=== PATIENT | female | born 1965 | race Caucasian/White ===

== ENCOUNTER → 2016-10-09 | Outpatient (CLI) | payer MEDICARE | END | disposition home or self-care (01) | LOC: RADMAMWWP 07:41 | PROVIDERS: ATTEND Family Medicine | DX: Z53.8 Procedure and treatment not carried out for other reasons (principal) ==

== ENCOUNTER → 2018-01-31 | Outpatient (CLI) | payer MEDICARE ==
--- NOTE | 2018-01-31 12:39 | XR ---
EXAMINATION TYPE: XR chest 2V DATE OF EXAM: 01/31/2018 COMPARISON: 05/11/2014 TECHNIQUE: PA and lateral views submitted. HISTORY: Cough and shortness of breath FINDINGS: The lungs are clear and there is no pneumothorax, pleural effusion, or focal pneumonia. Hypertrophi c and degenerative changes of the vertebral column. IMPRESSION: 1. No acute process.
== END | disposition home or self-care (01) ==
LOC: RADXRMAIN 12:23
PROVIDERS: ATTEND Family Medicine
DX: R00.2 Palpitations (principal); R06.02 Shortness of breath; E11.65 Type 2 diabetes mellitus with hyperglycemia
CPT/HCPCS: 71046

== ENCOUNTER → 2018-07-24 | Outpatient (CLI) | payer MEDICARE, OTHER ==
--- NOTE | 2018-07-24 09:57 | MM ---
Reason for exam: additional evaluation requested from prior study. Last mammogram was performed 3 years and 11 months ago. History: Family history of breast cancer in paternal aunt at age 50 and breast cancer in paternal aunt. Benign US biopsy breast VAD RT of the right breast, August 14, 2014. Physical Findings: Nurse did not find any significant physical abnormalities on exam. MG 3D Diag Mammo W/Cad [facility] Bilateral CC and MLO view(s) were taken. Prior study comparison: August 14, 2014, right breast MG diagnostic mammo RT wo CAD. August 07, 2014, bilateral MG diagnostic mammo w CAD [facility]. There are scattered fibroglandular densities. Previous mammotome biopsy in the right breast. There is chronic nodularity bilaterally. No significant new findings when compared with previous films. These results were verbally communicated with the patient and result sheet given to the patient on 07/24/18. ASSESSMENT: Benign, BI-RAD 2 RECOMMENDATION: Routine screening mammogram of both breasts in 1 year.
== END ==
LOC: RADMAMWWP 08:55
PROVIDERS: ATTEND Family Medicine
DX: Z09 Encounter for follow-up examination after completed treatment for conditions other than malignant neoplasm (principal); Z87.898 Personal history of other specified conditions
CPT/HCPCS: 77066; G0279; 77062

== ENCOUNTER 2018-09-15 10:49 | Emergency (ER) | payer MEDICARE, OTHER ==
--- NOTE | 2018-09-15 11:27 | ED ---
General Adult HPI - General Chief complaint: Shortness of Breath Stated complaint: Poss allergic reaction Time Seen by Provider: 09/15/18 11:05 Source: patient Mode of arrival: wheelchair Limitations: no limitations - History of Present Illness Initial comments: Dictation was produced using [employer] dictation software. please excuse any grammatical, word or spelling errors. Chief Complaint: 53-year-old female with multiple comorbidities presents with chest pressure. History of Present Illness: She is a 53-year-old female she was at [employer] when she began experiencing itching. Patient states she has multiple ALLERGIES. She is here today because she felt an episode of chest pressure. She told her family friend to bring her to the emergency department. Patient states that her pain was severe. She localizes it to the substernal area without any radiation to the shoulders or jaw. No associated diaphoresis or nausea. Patient has any cardiac history. She was told to follow-up with parks and recreation worker by her PCP however has not done so. Patient denies any cough, chills or night sweats P she felt at baseline this morning. Patient states her symptoms last for several minutes and was intense however subsided. Denies any mitigating or exacerbating factors. She believes that her symptoms are secondary to ALLERGIES. Eyes any rash, dyspnea, abdominal pain or sensation of throat closure. The ROS documented in this emergency department record has been reviewed and confirmed by me. Those systems with pertinent positive or negative responses have been documented in the HPI. All other systems are other negative and/or noncontributory. PHYSICAL EXAM: General Impression: Alert and oriented x3, not in acute distress HEENT: Normocephalic atraumatic, extra-ocular movements intact, pupils equal and reactive to light bilaterally, mucous membranes moist. Cardiovascular: Heart regular rate and rhythm, S1&S2 audible, no murmurs, rubs or gallops Chest: Lungs clear to auscultation bilaterally, no rhonchi, no wheeze, no rales Abdomen: Bowel sounds present, abdomen soft, non-tender, non-distended, no organomegaly Musculoskeletal: Pulses present and equal in all extremities, no peripheral edema Motor: no focal deficits noted Neurological: CN II-XII grossly intact, no focal motor or sensory deficits noted Skin: Intact with no visualized rashes Psych: Normal affect and mood ED course: 53-year-old female presents clinical presentation consistent with atypical chest pain with typical features. Patient has multiple risk factors. Patient is asymptomatic at this time. Vital signs upon arrival are within a cceptable limits. Laboratory evaluation obtained. CBC, coag panel, metabolic panels obtained. O2 sat troponins negative. Rest of labs unremarkable. Chest x-ray is nonacute. Patient's symptoms are grossly atypical. Nonetheless patient is a low risk heart score. Patient told to follow-up with PCP. Return parameters discussed. Patient understandable agreeable to disposition. EKG interpretation: Ventricular rate 80, normal sinus rhythm, NV interval 1:30, care is 80, QTc 435. No NV prolongation, no QTC prolongation, no ST or T-wave changes noted. s. Overall, this EKG is unremarkable - Related Data Home Medications Medication Instructions Recorded Confirmed Fish Oil/Dha/Epa [Fish Oil 1,200 1 cap PO BID 11/25/15 11/25/15 mg Fish Oil] Glucosam/John-Msm1/C/Eric/Bosw 1 tab PO DAILY 11/25/15 11/25/15 [Glucosamine-Chondroitin Tablet] Hair/Skin/Nails 1 tab PO DAILY 11/25/15 11/25/15 Previous Rx's Medication Instructions Recorded Lisinopril [Zestril] 2.5 mg PO DAILY 30 Days tab 05/19/14 Ondansetron [Zofran ODT] 4 mg PO Q8HR PRN #12 tab 11/25/15 Allergies Allergy/AdvReac Type Severity Reaction Status Date / Time banana Allergy Unknown Verified 09/15/18 10:59 latex Allergy Rash/Hives Verified 09/15/18 10:59 saccharin Allergy lip/tongue Verified 09/15/18 10:59 swelling adhesive AdvReac "BANDAIDS Verified 09/15/18 10:59 TAKE OFF SKIN" aspartame AdvReac Vomiting Verified 09/15/18 10:59 carbamazepine [From Tegretol] AdvReac feels as Verified 09/15/18 10:59 if her body was beat cephalexin [From Keflex] AdvReac yeast Verified 09/15/18 11:00 infection sitagliptin [From Januvia] AdvReac pulsating Verified 09/15/18 11:00 facial pain pitaschio Allergy lip/tongue Uncoded 09/15/18 10:59 swelling raw celery Allergy Swelling Uncoded 09/15/18 10:59 Review of Systems ROS Statement: Those systems with pertinent positive or pertinent negative responses have been documented in the HPI. ROS Other: All systems not noted in ROS Statement are negative. Past Medical History Past Medical History: Diabetes Mellitus, Hyperlipidemia, Hypertension, Seizure Disorder, Sleep Apnea/CPAP/BIPAP, Syncope Additional Past Medical History / Comment(s): anemia, hx blood clot in right ovary, spinal stenosis, Sleep Apnea-stopped using her cpap machine, neurological dermatitis, Last seizure date: 2005, Left shoulder injury. History of Any Multi-Drug Resistant Organisms: None Reported Past Surgical History: Back Surgery, Hysterectomy, Tubal Ligation Additional Past Surgical History / Comment(s): discectomy, lt foot removal of foriegn body, Back Surgery- November 2012 Past Anesthesia/Blood Transfusion Reactions: Motion Sickness Past Psychological History: Anxiety, Depression, Schizoaffective Disorder Smoking Status: Never smoker Past Alcohol Use History: Occasional Past Drug Use History: None Reported - Past Family History Father Family Medical History: Diabetes Mellitus, Hypertension, Thyroid Disorder Additional Family Medical History / Comment(s): neuropathy, chronic fatigue syndrome Mother Family Medical History: Diabetes Mellitus Additional Family Medical History / Comment(s): Patient has 3 brothers and 3 sisters that have no major medical problems. General Exam Limitations: no limitations Course Vital Signs 09/15/18 09/15/18 09/15/18 10:56 13:10 14:29 Temperature 98.3 F Pulse Rate 83 80 90 Respiratory 18 16 18 Rate Blood Pressure 158/113 120/86 146/91 O2 Sat by Pulse 98 96 96 Oximetry Medical Decision Making - Lab Data Result diagrams: 09/15/18 11:27 09/15/18 11:27 Lab Results 09/15/18 09/15/18 09/15/18 Range/Units 11:27 11:27 11:27 WBC 6.4 (3.8-10.6) k/uL RBC 4.65 (3.80-5.40) m/uL Hgb 13.2 (11.4-16.0) gm/dL Hct 41.0 (34.0-46.0) % MCV 88.1 (80.0-100.0) fL MCH 28.5 (25.0-35.0) pg MCHC 32.3 (31.0-37.0) g/dL RDW 13.5 (11.5-15.5) % Plt Count 344 (150-450) k/uL Neutrophils % 40 % Lymphocytes % 47 % Monocytes % 6 % Eosinophils % 2 % Basophils % 1 % Neutrophils # 2.6 (1.3-7.7) k/uL Lymphocytes # 3.1 (1.0-4.8) k/uL Monocytes # 0.4 (0-1.0) k/uL Eosinophils # 0.1 (0-0.7) k/uL Basophils # 0.1 (0-0.2) k/uL PT 9.5 (9.0-12.0) sec INR 0.9 (<1.2) APTT 24.1 (22.0-30.0) sec Sodium 138 (137-145) mmol/L Potassium 4.3 (3.5-5.1) mmol/L Chloride 103 (98-107) mmol/L Carbon Dioxide 24 (22-30) mmol/L Anion Gap 11 mmol/L BUN 14 (7-17) mg/dL Creatinine 0.72 (0.52-1.04) mg/dL Est GFR (CKD-EPI)AfAm >90 (>60 ml/min/1.73 sqM) Est GFR (CKD-EPI)NonAf >90 (>60 ml/min/1.73 sqM) Glucose 193 H (74-99) mg/dL Calcium 9.4 (8.4-10.2) mg/dL Magnesium 1.7 (1.6-2.3) mg/dL Total Bilirubin 0.5 (0.2-1.3) mg/dL AST 31 (14-36) U/L ALT 32 (9-52) U/L Alkaline Phosphatase 117 (38-126) U/L Troponin I (0.000-0.034) ng/mL Total Protein 7.1 (6.3-8.2) g/dL Albumin 4.2 (3.5-5.0) g/dL 09/15/18 09/15/18 Range/Units 11:27 14:31 WBC (3.8-10.6) k/uL RBC (3.80-5.40) m/uL Hgb (11.4-16.0) gm/dL Hct (34.0-46.0) % MCV (80.0-100.0) fL MCH (25.0-35.0) pg MCHC (31.0-37.0) g/dL RDW (11.5-15.5) % Plt Count (150-450) k/uL Neutrophils % % Lymphocytes % % Monocytes % % Eosinophils % % Basophils % % Neutrophils # (1.3-7.7) k/uL Lymphocytes # (1.0-4.8) k/uL Monocytes # (0-1.0) k/uL Eosinophils # (0-0.7) k/uL Basophils # (0-0.2) k/uL PT (9.0-12.0) sec INR (<1.2) APTT (22.0-30.0) sec Sodium (137-145) mmol/L Potassium (3.5-5.1) mmol/L Chloride (98-107) mmol/L Carbon Dioxide (22-30) mmol/L Anion Gap mmol/L BUN (7-17) mg/dL Creatinine (0.52-1.04) mg/dL Est GFR (CKD-EPI)AfAm (>60 ml/min/1.73 sqM) Est GFR (CKD-EPI)NonAf (>60 ml/min/1.73 sqM) Glucose (74-99) mg/dL Calcium (8.4-10.2) mg/dL Magnesium (1.6-2.3) mg/dL Total Bilirubin (0.2-1.3) mg/dL AST (14-36) U/L ALT (9-52) U/L Alkaline Phosphatase (38-126) U/L Troponin I <0.012 <0.012 (0.000-0.034) ng/mL Total Protein (6.3-8.2) g/dL Albumin (3.5-5.0) g/dL Disposition Clinical Impression: Chest pain Disposition: HOME SELF-CARE Condition: Good Instructions (If sedation given, give patient instructions): Chest Pain (ED) Is patient prescribed a controlled substance at d/c from ED?: No Referrals: Petty Christy MD [Primary Care Provider] - 1-2 days Time of Disposition: 15:23
--- NOTE | 2018-09-15 11:42 | XR ---
EXAMINATION TYPE: XR chest 2V DATE OF EXAM: 09/15/2018 HISTORY: Strange feeling in the lungs. REFERENCE: Previous study dated 01/31/2018. FINDINGS: Lungs are clear. Pleural space are clear. The heart is not enlarged. IMPRESSION: NORMAL CHEST.
[2018-09-15 11:55] LABS: Basophils # (A) 0.1 k/uL (0-0.2); Basophils % (A) 1 %; Eosinophils # (A) 0.1 k/uL (0-0.7); Eosinophils % (A) 2 %; HGB 13.2 gm/dL (11.4-16.0); Lymphocytes # (A) 3.1 k/uL (1.0-4.8); Lymphocytes % (A) 47 %; MCH 28.5 pg (25.0-35.0); MCHC 32.3 g/dL (31.0-37.0); MCV 88.1 fL (80.0-100.0); Mean Platelet Volume 7.5; Monocytes # (A) 0.4 k/uL (0-1.0); Monocytes % (A) 6 %; Neutrophils # (A) 2.6 k/uL (1.3-7.7); Neutrophils % (A) 40 %; Platelet Count 344 k/uL (150-450); RBC 4.65 m/uL (3.80-5.40); RDW 13.5 % (11.5-15.5); WBC 6.4 k/uL (3.8-10.6)
[2018-09-15 12:04] LABS: ALT 32 U/L (9-52); AST 31 U/L (14-36); Albumin 4.2 g/dL (3.5-5.0); Alkaline Phosphatase 117 U/L (38-126); Anion Gap 11 mmol/L; Blood Urea Nitrogen 14 mg/dL (7-17); Calcium 9.4 mg/dL (8.4-10.2); Carbon Dioxide 24 mmol/L (22-30); Chloride 103 mmol/L (98-107); Glucose 193 mg/dL (74-99); INR 0.9 (<1.2); Magnesium 1.7 mg/dL (1.6-2.3); Partial Thromboplastin Time 24.1 sec (22.0-30.0); Potassium 4.3 mmol/L (3.5-5.1); Prothrombin Time 9.5 sec (9.0-12.0); Sodium 138 mmol/L (137-145); Total Bilirubin 0.5 mg/dL (0.2-1.3); Total Protein 7.1 g/dL (6.3-8.2)
[2018-09-15] MEDS ORDERED: DEXAMETHASONE 4 MG TAB PO STA (12:48)
[2018-09-15] MEDS ORDERED: ASPIRIN 81 MG PO STA (12:48)
[2018-09-15 14:31] VITALS: RESP 18
[2018-09-15 15:37] VITALS: BP 142/97; PULSE 82; TEMP 98.2
== END 2018-09-15 15:37 | disposition home or self-care (01) ==
LOC: EC 10:49
DX: R07.89 Other chest pain (principal); R06.02 Shortness of breath; G47.30 Sleep apnea, unspecified; Z88.1 Allergy status to other antibiotic agents; Z88.8 Allergy status to other drugs, medicaments and biological substances; Z91.040 Latex allergy status; Z91.048 Other nonmedicinal substance allergy status; Z91.018 Allergy to other foods
CPT/HCPCS: 36415; 93005; 80053; 83735; 84484; 85025; 85610; 85730; 71046; 99285; J8540

== ENCOUNTER → 2018-11-29 | Outpatient (CLI) | payer MEDICARE, OTHER ==
[2018-11-29 19:27] LABS: African American GFR (CKD) 98.9 (60.0-200.0)
== END ==
LOC: LABWHC1 09:27
PROVIDERS: ATTEND Otolaryngology
DX: Z01.812 Encounter for preprocedural laboratory examination (principal); G50.1 Atypical facial pain
CPT/HCPCS: 36415; 82565; 84520

== ENCOUNTER 2019-10-03 18:23 | Emergency (ER) | payer OTHER, MEDICARE ==
[2019-10-03 18:32] VITALS: RESP 16
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
[2019-10-03] MEDS ORDERED: KETOROLAC 30 MG/ML 1 ML VIAL IM STA (20:32)
[2019-10-03] MEDS ORDERED: KETOROLAC 30 MG/ML 1 ML VIAL IVP STA (21:00)
[2019-10-03 21:18] VITALS: BP 143/99; PULSE 88; TEMP 97.6
== END 2019-10-03 21:18 | disposition home or self-care (01) ==
LOC: EC 18:23
DX: S09.90XA Unspecified injury of head, initial encounter (principal); R07.89 Other chest pain; N83.202 Unspecified ovarian cyst, left side; R10.812 Left upper quadrant abdominal tenderness; R10.811 Right upper quadrant abdominal tenderness; Z79.899 Other long term (current) drug therapy; Z91.018 Allergy to other foods; Z91.040 Latex allergy status; Z88.1 Allergy status to other antibiotic agents; Z88.8 Allergy status to other drugs, medicaments and biological substances; V43.52XA Car driver injured in collision with other type car in traffic accident, initial encounter; Y93.89 Activity, other specified; Y92.410 Unspecified street and highway as the place of occurrence of the external cause
CPT/HCPCS: 72125; 70450; 71260; 74177; 99284; 96374; J1885; Q9967

== ENCOUNTER → 2019-11-13 | Outpatient (CLI) | payer BC, OTHER ==
--- NOTE | 2019-11-14 10:18 | MM ---
Reason for exam: screening (asymptomatic). Last mammogram was performed 1 year and 4 months ago. History: Patient is postmenopausal and history of other cancer. Family history of breast cancer in paternal aunt at age 50 and breast cancer in paternal aunt. Benign US biopsy breast VAD RT of the right breast, August 14, 2014. Took hormonal contraceptives for 6 months. Physical Findings: A clinical breast exam by your physician is recommended on an annual basis and results should be correlated with mammographic findings. MG 3D Screening Mammo W/Cad Bilateral CC and MLO view(s) were taken. Prior study comparison: July 24, 2018, bilateral MG 3d diag mammo w/cad [facility]. August 14, 2014, right breast MG diagnostic mammo RT wo CAD. The breast tissue is heterogeneously dense. This may lower the sensitivity of mammography. Previous mammotome biopsy in the right breast. There is no discrete abnormality. No significant changes when compared with prior studies. ASSESSMENT: Benign, BI-RAD 2 RECOMMENDATION: Routine screening mammogram of both breasts in 1 year.
== END | disposition home or self-care (01) ==
LOC: RADMAMWWP 08:45
PROVIDERS: ATTEND Family Medicine
DX: Z12.31 Encounter for screening mammogram for malignant neoplasm of breast (principal)
CPT/HCPCS: 77063; 77067

== ENCOUNTER → 2019-12-05 | Outpatient (CLI) | payer MEDICARE, OTHER ==
[2019-12-05 15:19] LABS: African American GFR (CKD) 98.2 (60.0-200.0); Anion Gap 9.7 mmol/L (4.00-12.00); BUN/Creat Ratio 18.75 Ratio (12.00-20.00); Calcium 9.4 mg/dL (8.7-10.3); Carbon Dioxide 24.3 mmol/L (21.6-31.8); Chol/HDL Ratio 4.97; LDL Cholesterol,Calculated 197.4 mg/dL (0.0-131.0); Non-African American GFR(CKD) 84.8 (60.0-200.0); Potassium 4.2 mmol/L (3.5-5.5); VLDL Calculation 40.6 mg/dL (5.00-40.00)
[2019-12-05 17:39] LABS: Hemoglobin A1C 8.7 % (4.0-6.0)
[2019-12-05 21:55] LABS: Urine Creatinine 90.4 mg/dL
== END | disposition home or self-care (01) ==
LOC: LABWHC1 10:11
PROVIDERS: ATTEND Internal Medicine
DX: E11.65 Type 2 diabetes mellitus with hyperglycemia (principal)
CPT/HCPCS: 36415; 80048; 80061; 82043; 82570; 83036

== ENCOUNTER 2019-12-12 10:50 | Emergency (ER) | payer MEDICARE, OTHER ==
[2019-12-12 10:56] VITALS: TEMP 97.9
[2019-12-12 12:13] LABS: Basophils % (A) 1 %; Eosinophils # (A) 0.1 k/uL (0-0.7); Eosinophils % (A) 1 %; HCT 41.1 % (34.0-46.0); HGB 12.8 gm/dL (11.4-16.0); Lymphocytes % (A) 37 %; MCH 27.6 pg (25.0-35.0); MCV 88.8 fL (80.0-100.0); Monocytes # (A) 0.3 k/uL (0-1.0); Monocytes % (A) 6 %; Neutrophils # (A) 2.8 k/uL (1.3-7.7); Neutrophils % (A) 52 %; Platelet Count 279 k/uL (150-450); RBC 4.63 m/uL (3.80-5.40); RDW 13.4 % (11.5-15.5); WBC 5.4 k/uL (3.8-10.6)
[2019-12-12 12:14] LABS: Appearance,Urine Clear (Clear); Bilirubin,Urine Negative (Negative); Blood,Urine Negative (Negative); Color,Urine Light Yellow; Glucose,Urine (UA) Negative (Negative); Ketones,Urine Negative (Negative); Leukocyte Esterase,Urine Negative (Negative); Nitrite,Urine Negative (Negative); Protein,Urine Negative (Negative); Specific Gravity,Urine 1.007 (1.001-1.035); Urobilinogen,Urine <2.0 mg/dL (<2.0)
[2019-12-12 12:32] LABS: Amphetamine Screen,Urine Not Detected (NotDetected); Barbiturate Screen,Urine Not Detected (NotDetected); Benzodiazepines Screen,Urine Not Detected (NotDetected); Cocaine Screen,Urine Not Detected (NotDetected); Methadone Screen, Urine Not Detected (NotDetected); Opiate Screen,Urine Not Detected (NotDetected); Oxycodone Screen, Urine Not Detected (NotDetected); Phencyclidine Screen,Urine Not Detected (NotDetected); Tricyclic Antidepressant,Urine Not Detected (NotDetected); Urn Cannabinoid Scrn Not Detected (NotDetected)
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
[2019-12-12 13:40] LABS: ALT 17 U/L (4-34); AST 26 U/L (14-36); African American GFR (CKD) >90 (>60 ml/min/1.73 sqM); Albumin 4.3 g/dL (3.5-5.0); Alkaline Phosphatase 96 U/L (38-126); Anion Gap 10 mmol/L; Blood Urea Nitrogen 12 mg/dL (7-17); Calcium 9.4 mg/dL (8.4-10.2); Carbon Dioxide 20 mmol/L (22-30); Chloride 106 mmol/L (98-107); Glucose 177 mg/dL (74-99); Non-African American GFR(CKD) >90 (>60 ml/min/1.73 sqM); Potassium 4.5 mmol/L (3.5-5.1); Sodium 136 mmol/L (137-145); Total Bilirubin 0.6 mg/dL (0.2-1.3); Total Protein 7.1 g/dL (6.3-8.2)
[2019-12-12 13:53] VITALS: BP 154/90; PULSE 82; RESP 16
== END 2019-12-12 14:10 | disposition home or self-care (01) ==
LOC: EC 10:50
DX: R55 Syncope and collapse (principal); R42 Dizziness and giddiness; Z91.018 Allergy to other foods; Z88.8 Allergy status to other drugs, medicaments and biological substances; Z91.048 Other nonmedicinal substance allergy status; Z91.040 Latex allergy status; Z87.828 Personal history of other (healed) physical injury and trauma
CPT/HCPCS: 36415; 80053; 80306; 81003; 84443; 85025; 93005; 99284

== ENCOUNTER 2020-12-15 17:33 | Observation (INO) | payer MEDICARE, OTHER ==
[2020-12-15] MEDS ORDERED: HYDROmorphone 0.5 MG/0.5 ML SYRINGE IM STA (18:14)
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
--- NOTE | 2020-12-15 19:06 | CT ---
EXAMINATION TYPE: CT thoracic spine wo con DATE OF EXAM: 12/15/2020 COMPARISON: Chest CT scan 10/03/2019 HISTORY: Mid back pain, radiating to left arm. CT DLP: 841 mGycm Automated exposure control for dose reduction was used. Images obtained from T1 to T12 without contrast. The thoracic vertebra have fairly normal spacing and alignment. Posterior elements are intact. There is no compression fracture. There is no thoracic paraspinal mass. I see no bony destructive process. There is no sign of thoracic spinal stenosis. There is minimal spurring in the lower thoracic spine a t the anterior endplates. IMPRESSION: Mild spur formation. Otherwise negative CT scan of the thoracic spine. No adverse change compared to old exam. No fracture.
[2020-12-15] MEDS ORDERED: IBUPROFEN 400 MG TAB PO PRN (19:29)
[2020-12-15] MEDS ORDERED: ACETAMINOPHEN TAB 325 MG TAB PO PRN (19:29)
[2020-12-15] MEDS ORDERED: ONDANSETRON 4 MG/2 ML VIAL IVP PRN (19:29)
[2020-12-15] MEDS ORDERED: NALOXONE 0.4 MG/ML 1 ML VIAL IV PRN (19:29)
[2020-12-15] MEDS ORDERED: MORPHINE SULFATE 4 MG/ML SYRINGE IV PRN (19:29)
[2020-12-15] MEDS ORDERED: HYDROcodone/APAP 5-325MG 1 EACH TAB PO PRN (19:29)
[2020-12-15] MEDS ORDERED: HYDROmorphone 0.5 MG/0.5 ML SYRINGE IVP PRN (19:29)
[2020-12-15] MEDS: KETOROLAC 15 MG/ML 1 ML VIAL IVP PRN (20:57)
[2020-12-15 21:48] LABS: Glucose,Whole Blood 136 mg/dL (75-99)
[2020-12-16] MEDS: KETOROLAC 15 MG/ML 1 ML VIAL IVP PRN (09:11)
[2020-12-16] MEDS ORDERED: CYCLOBENZAPRINE 10 MG TAB PO PRN (10:14)
[2020-12-16] MEDS ORDERED: methylPREDNISolone SOD SUCCI 40 MG/ML 1 ML VIAL IV STA (10:15)
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
[2020-12-16] MEDS ORDERED: DOCUSATE 100 MG CAP PO PRN (11:13)
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
[2020-12-16] MEDS ORDERED: INSULIN DETEMIR (LEVEMIR) 100 UNIT/ML SYR SQ SCH (16:00)
[2020-12-16] MEDS: lisinopriL 5 MG TAB PO SCH (16:22)
[2020-12-16] MEDS: KETOROLAC 15 MG/ML 1 ML VIAL IVP SCH (16:22)
[2020-12-16 16:44] LABS: Basophils % (A) 1 %; Eosinophils # (A) 0.1 k/uL (0-0.7); Eosinophils % (A) 1 %; HCT 40.4 % (34.0-46.0); HGB 13.2 gm/dL (11.4-16.0); Lymphocytes # (A) 2.3 k/uL (1.0-4.8); Lymphocytes % (A) 38 %; MCH 29.5 pg (25.0-35.0); MCHC 32.6 g/dL (31.0-37.0); MCV 90.4 fL (80.0-100.0); Monocytes # (A) 0.4 k/uL (0-1.0); Monocytes % (A) 6 %; Neutrophils # (A) 3.3 k/uL (1.3-7.7); Neutrophils % (A) 52 %; Platelet Count 272 k/uL (150-450); RBC 4.46 m/uL (3.80-5.40); RDW 14.7 % (11.5-15.5); WBC 6.2 k/uL (3.8-10.6)
[2020-12-16 16:54] LABS: African American GFR (CKD) >90 (>60 ml/min/1.73 sqM); Anion Gap 7 mmol/L; Blood Urea Nitrogen 14 mg/dL (7-17); Carbon Dioxide 26 mmol/L (22-30); Chloride 102 mmol/L (98-107); Glucose 188 mg/dL (74-99); Non-African American GFR(CKD) 81 (>60 ml/min/1.73 sqM); Potassium 4.3 mmol/L (3.5-5.1); Sodium 135 mmol/L (137-145)
[2020-12-16 18:01] LABS: Glucose,Whole Blood 183 mg/dL (75-99)
[2020-12-16] MEDS: INSULIN ASPART (NovoLOG) 100 UNIT/ML VIAL SQ SCH ×2 (18:12→22:06)
[2020-12-16] MEDS ORDERED: risperiDONE 0.5 MG TAB PO SCH (21:00)
[2020-12-16 21:58] LABS: Glucose,Whole Blood 259 mg/dL (75-99)
[2020-12-16] MEDS: HEPARIN SODIUM,PORCINE/PF 5,000 UNIT/0.5 ML SYRINGE SQ SCH (21:59)
[2020-12-17] MEDS: KETOROLAC 15 MG/ML 1 ML VIAL IVP SCH ×3 (00:21→11:58)
[2020-12-17 03:44] VITALS: RESP 16
[2020-12-17] MEDS: HEPARIN SODIUM,PORCINE/PF 5,000 UNIT/0.5 ML SYRINGE SQ SCH (07:56)
[2020-12-17] MEDS: lisinopriL 5 MG TAB PO SCH (07:56)
[2020-12-17 08:03] LABS: Glucose,Whole Blood 182 mg/dL (75-99)
[2020-12-17 08:30] VITALS: BP 122/80; PULSE 75; TEMP 97.4
[2020-12-17] MEDS: INSULIN ASPART (NovoLOG) 100 UNIT/ML VIAL SQ SCH ×2 (08:53→13:03)
[2020-12-17] MEDS ORDERED: PATIENT'S OWN (Omega-3 Acid Ethyl Esters [Lovaza] 1 GM Capsule) PO SCH (09:00)
[2020-12-17] MEDS ORDERED: methylPREDNISolone 4 MG TAB TAPER PO SCH (09:00)
[2020-12-17 10:26] LABS: African American GFR (CKD) 84.6 (60.0-200.0); Anion Gap 8.9 mmol/L (4.00-12.00); Calcium 9.3 mg/dL (8.7-10.3); Carbon Dioxide 24.1 mmol/L (21.6-31.8); Chol/HDL Ratio 3.82; LDL Cholesterol,Calculated 167.6 mg/dL (0.0-131.0); Potassium 4.5 mmol/L (3.5-5.5); VLDL Calculation 32.4 mg/dL (5.00-40.00)
[2020-12-17 10:31] LABS: Basophils # (A) 0.01 X 10*3/uL (0.00-0.10); Basophils % (A) 0.1 %; Eosinophils # (A) 0 X 10*3/uL (0.04-0.35); Eosinophils % (A) 0 %; HCT 39.9 % (37.2-46.3); HGB 12.9 g/dL (12.0-15.0); Lymphocytes # (A) 1.64 X 10*3/uL (0.90-5.00); Lymphocytes % (A) 18.3 %; MCH 28.4 pg (27.0-32.0); MCHC 32.3 g/dL (32.0-37.0); MCV 87.9 fL (80.0-97.0); Monocytes # (A) 0.35 X 10*3/uL (0.20-1.00); Monocytes % (A) 3.9 %; Neutrophils # (A) 6.92 X 10*3/uL (1.80-7.70); Neutrophils % (A) 77.4 %; Platelet Count 332 X 10*3/uL (140-440); RBC 4.54 X 10*6/uL (4.10-5.20); WBC 8.95 X 10*3/uL (4.50-10.00)
[2020-12-17 11:36] LABS: Glucose,Whole Blood 222 mg/dL (75-99)
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
== END 2020-12-17 12:51 | disposition home or self-care (01) ==
LOC: EC 17:33 → 6NMEDSUR 19:55
PROVIDERS: ADMIT Internal Medicine; ATTEND Internal Medicine
DX: M54.6 Pain in thoracic spine (principal); M47.812 Spondylosis without myelopathy or radiculopathy, cervical region; E11.9 Type 2 diabetes mellitus without complications; E66.9 Obesity, unspecified; E78.5 Hyperlipidemia, unspecified; F25.9 Schizoaffective disorder, unspecified; G40.909 Epilepsy, unspecified, not intractable, without status epilepticus; G89.29 Other chronic pain; I10 Essential (primary) hypertension; S29.012A Strain of muscle and tendon of back wall of thorax, initial encounter; Z68.33 Body mass index [BMI] 33.0-33.9, adult; Z79.899 Other long term (current) drug therapy; Z82.49 Family history of ischemic heart disease and other diseases of the circulatory system; Z83.3 Family history of diabetes mellitus; Z90.710 Acquired absence of both cervix and uterus
CPT/HCPCS: 96376 ×2; 96372 ×3; 96375; 96374; 99284; 80061; 80048 ×2; 85025 ×2; 72128; G0378 ×3; J2920; J1885 ×3; J1170 ×2; J1644 ×2

== ENCOUNTER → 2021-02-24 | Outpatient (CLI) | payer MEDICARE, OTHER ==
--- NOTE | 2021-02-24 11:55 | XR ---
Orbits HISTORY: MRI clearance, history of grinding rocks without hypertension 3 views of the orbits On the mineralization is maintained. The orbits are intact. No radiopaque foreign body is evident. Pa ranasal sinuses are well aerated. IMPRESSION: No radiopaque foreign body is evident
== END | disposition home or self-care (01) ==
LOC: RADXRMAIN 11:30
PROVIDERS: ATTEND Orthopaedic Surgery Orthopaedic Surgery of the Spine
DX: Z01.89 Encounter for other specified special examinations (principal)
CPT/HCPCS: 70030

== ENCOUNTER → 2021-04-11 | Outpatient (CLI) | payer MEDICARE, OTHER ==
[2021-04-11 08:26] VITALS: BP 129/86; PULSE 91; RESP 18; TEMP 98
--- NOTE | 2021-04-11 14:04 | P.PAINCN ---
History of Present Illness - Reason for Consult Consult date: 04/11/21 Neck pain - Chief Complaint Neck pain - History of Present Illness Mrs. Gordon is a 56 -year-old pleasant female came to the [facility] pain clinic for initial evaluation for her neck pain . Patient has ongoing pain for many years, lately her neck pain is getting worse. Sometimes her pain radiating to her bilateral shoulder area. Patient describes pain is aching, throbbing, constant type of pain. Pain is radiating to bilateral shoulder area. Patient had shoulder joint injection with minimal pain relief. She recently moved from [place] to [place] in more than a year ago. Patient rated pain levels are 6 out of 10 in severity. With the help of medications pain levels are 5out of 10 in severity. Activities making pain worse. Medications, resting, exercise helping in relieving patient's pain. Patient is still actively working. Patient pain some days better than others. Overall activities decreased secondary to pain. Because of the pain sometimes patient is feeling lack of sleep, interest, and energy. Denied any side effects with the medications. Denied any bowel or bladder problems at this time. Not using any walking aids at this time. Patient denies any suicidal or homicidal ideations intent or plan. Patient denies any auditory or visual hallucinations. Patient denied any red flag symptoms related to pain. Review of Systems All systems: negative Constitutional: Denies chills, Denies fever Eyes: denies blurred vision, denies pain Ears, nose, mouth and throat: Denies headache, Denies sore throat Cardiovascular: Denies chest pain, Denies shortness of breath Respiratory: Denies cough Gastrointestinal: Denies abdominal pain, Denies diarrhea, Denies nausea, Denies vomiting Genitourinary: Denies dysuria, Denies hematuria Musculoskeletal: Reports myalgias, Reports neck pain, Reports neck stiffness Integumentary: Denies pruritus, Denies rash Neurological: Denies numbness, Denies weakness Psychiatric: Denies anxiety, Denies depression Endocrine: Denies fatigue, Denies weight change Past Medical History Past Medical History: Blood Disorder, Cancer, Diabetes Mellitus, Eye Disorder, GERD/Reflux, Hyperlipidemia, Hypertension, Musculoskeletal Disorder, Seizure Disorder, Skin Disorder, Sleep Apnea/CPAP/BIPAP, Syncope Additional Past Medical History / Comment(s): Hx severe anemia, sm leaky valve, hx blood clot Rt ovary, skin cancer spinal stenosis, narrow-angle glaucoma, fatty liver. Neck pain, NT bilat arms. No CPAP. neurological dermatitis, Last seizure 2005, varicose veins. History of Any Multi-Drug Resistant Organisms: None Reported Past Surgical History: Back Surgery, Hysterectomy, Tubal Ligation Additional Past Surgical History / Comment(s): Lumbar discectomy 2012, lt foot removal of foriegn body, Laser varicose veins, Skin cancer exc scalp Past Anesthesia/Blood Transfusion Reactions: Previous Problems w/ Anesthesia Additional Past Anesthesia/Blood Transfusion Reaction / Comm: Family has awakened in surgery - son, father Smoking Status: Never smoker - Past Family History Father Family Medical History: Cancer, CVA/TIA, Diabetes Mellitus, Hypertension, Thyroid Disorder Additional Family Medical History / Comment(s): Lymphoma, neuropathy, chronic fatigue syndrome Mother Family Medical History: Cancer, CVA/TIA, Diabetes Mellitus Additional Family Medical History / Comment(s): Cervical cancer. Sister(s) Family Medical History: Cancer Additional Family Medical History / Comment(s): breast cancer Medications and Allergies Home Medications Medication Instructions Recorded Confirmed Type Insulin Glargine,Hum.rec.anlog 26 unit SQ QAM 12/15/20 04/11/21 History [Lantus Solostar Pen] lisinopriL [Zestril] 5 mg PO BID 12/15/20 04/11/21 History Cyclobenzaprine [Flexeril] 10 mg PO TID PRN #60 tab 12/16/20 04/11/21 Rx Ascorbic Acid [Vitamin C] 500 mg PO DAILY 04/04/21 04/11/21 History Benztropine Mesylate [Cogentin] 1 mg PO BID 04/04/21 04/11/21 History Ezetimibe [Zetia] 10 mg PO DAILY 04/04/21 04/11/21 History Fluticasone Nasal [place] [Flonase 2 spray EA NOSTRIL DAILY 04/04/21 04/11/21 History Nasal [place]] Gabapentin [Neurontin] 100 mg PO BID 04/04/21 04/11/21 History Multivitamins, Thera Liquid 5 ml PO DAILY 04/04/21 04/11/21 History [Theragran Liquid (formulary)] [place]-3 Fatty Acids [[place]-3] 1,000 mg PO DAILY 04/04/21 04/11/21 History Paliperidone IM [Invega Sustenna] 156 mg IM QMONTHLY 04/04/21 04/11/21 History Semaglutide [Ozempic] 0.25 mg SQ MO 04/04/21 04/11/21 History Allergies Allergy/AdvReac Type Severity Reaction Status Date / Time banana Allergy Unknown Verified 04/04/21 16:25 celery Allergy Anaphylaxis Verified 04/04/21 16:25 latex Allergy Rash/Hives Verified 04/04/21 16:25 saccharin Allergy lip/tongue Verified 04/04/21 16:25 swelling tramadol Allergy feels Verified 04/04/21 16:25 bruised/stiff in face tree nut Allergy Anaphylaxis Verified 04/04/21 16:25 adhesive AdvReac "BANDAIDS Verified 04/04/21 16:25 TAKE OFF SKIN" aspartame AdvReac Vomiting Verified 04/04/21 16:25 carbamazepine [From Tegretol] AdvReac feels as Verified 04/04/21 16:25 if her body was beat cephalexin [From Keflex] AdvReac yeast Verified 04/04/21 16:25 infection chicken derived [Chicken] AdvReac positive Verified 04/04/21 16:25 allergy testing glipizide AdvReac depression Verified 04/04/21 16:25 liraglutide [From Victoza] AdvReac Abdominal Verified 04/04/21 16:25 Pain lurasidone [From Latuda] AdvReac Hallucinati Verified 04/04/21 16:25 ons metformin AdvReac depression Verified 04/04/21 16:25 paliperidone [From Invega] AdvReac Tired, Verified 04/04/21 16:26 cramping in jaw pioglitazone [From Actos] AdvReac gained 10# Verified 04/04/21 16:25 water weight repaglinide AdvReac Unknown Verified 04/04/21 16:25 sitagliptin [From Januvia] AdvReac pulsating Verified 04/04/21 16:25 facial pain Aeskavt-TBP-FcC Reductase AdvReac elev liver Verified 04/04/21 16:25 Inhibitor enzymes dust mites Allergy Unknown Uncoded 04/04/21 16:25 pitaschio Allergy Anaphylaxis Uncoded 04/04/21 16:25 raw celery Allergy Anaphylaxis Uncoded 04/04/21 16:25 Physical Exam Vitals: Vital Signs Temp Pulse Resp BP Pulse Ox 04/11/21 08:22 98.0 F 91 18 129/86 99 General: Well-developed, well-nourished, no acute distress HEENT: Normocephalic, and atraumatic Neck: Supple, no neck swelling Psychiatric: Appropriate mood, and affect [employer] DES[employer]ER: No focal neurological deficits Musculoskeletal: Upper extremity: Normal strength, and range of motion. Sensation grossly intact Lower extremity: Normal strength and range of motion Cervical spine: Paravertebral tenderness: Positive Cervical spine facet josé luis: Positive Cervical spine Spurling test: Negative Multiple trigger points positive over cervical, and upper thoracic area Results Comments: MRI of the cervical spine on 12/08/2020 showed Degenerative changes within the cervical spine are not significantly changed from the previous cervical spine MRI done in 2012. At C5-C6 there is a mild narrowing of the spinal canal with minimal cord impingement. Severe left, and moderate to severe right neural foraminal stenosis At C6-C7 level there is a moderate to severe right, and moderate left neural foraminal stenosis with minimal narrowing of the spinal canal Assessment and Plan Assessment: Cervical spondylosis without myelopathy Cervical spinal canal stenosis at C5-C6, and C6-C7 levels Myofascial pain syndrome, and chronic pain syndrome Plan: #1 Diagnoses, prognosis, and multiple treatment options including but not limited to physical therapy, interventional therapy, adjunct medication therapy, narcotic medication, and surgical options were discussed with the patient. And all questions were answered to the patient's satisfaction. #2 treatment plan agreement : Patient was thoroughly discussed regarding the treatment options, alternatives, and importance of exercises as tolerated. Patient clearly understood. #3 Patient was counseled on importance of regular exercise. Including teresita chi, aerobic exercises as tolerated. Which helps for chronic pain, and overall well- being. Patient also counseled regarding importance of weight control rolling chronic pain, and overall other health issues. By altering diet habits, minimizing sugar intake, and processed foods helps in minimizing Inflammation. Also discussed with the patient regarding intermittent fasting. #4 investigations: MAPS- reviewed , urine drug test- not done #5 diagnostic tests: None #6 consultation : Continue physical therapy # 7 interventional procedures: Bilateral cervical C4-C5, and C5-C6 medial branch injection #1 . Procedure, complications, alternatives discussed with the patient. Patient is very concerned about her blood sugars lately it is under control, she wants to avoid any interventional procedures at this time. #8 medications None from the pain clinic #9 morphine milligrams equivalents dose ( MME) per day: 0. # 10 TENS unit's, and percussion massage device #11 disposition: scheduled to follow up with pain clinic [id number] duration. Time with Patient: Less than 30 PQRS Measure Charge Sheet Measure #130: Documentation of Current Meds in Medical Chart: Patient's medications documented in chart Measure #226: Tobacco Use: Screen & Cessation Intervention: Pt not a tobacco user Measure #111: Pneumonia Vaccination: Pneumococcal vaccine NOT administered or previously given Measure #47: Advance Care Plan: Advance care planning discussed & documented, pt chose/unable to give Measure #412: Opioid Treatment Agreement: No documentation of signed opioid treatment agreement Measure #408: Opioid Therapy Follow-up Evaluation: Patient had NO f/u eval minimum every 3 months during opioid therapy Measure #317: Preventitive Care & Scrn High Bld Press & F/U: Pre-hypertensive or hypertensive BP documented, pt will f/u with PCP Measure #128: Body Mass Index (BMI) Screening & Follow-up: BMI documented ABOVE normal parameters - f/u documented Measure #131: Pain Assessment & Follow-up: Pain positive & plan documented Measure #431: Unhealthy Alcohol Use Preventative Care & Scrn: Patient not identified as an unhealthy alcohol user Mode of Arrival: Ambulatory - Pain Location Neck Non-Pharmacological Interventions: Binder, Heat, Home Exercise, Ice, Physical Therapy, Position/Reposition, Stretching Pharmacological Interventions: Medication, PRN Medication Medial Back Non-Pharmacological Interventions: Binder Pharmacological Interventions: Medication, PRN Medication PQRS Narrative: Smoking Status Never smoker Blood Pressure 129/86 Pain Intensity [Medial Back] 7 Pain Intensity [Neck] 5 Scale Used Numeric (1 - 10) Hx Alcohol Use (MH) No Home Medications: Ambulatory Orders Insulin Glargine,Hum.rec.anlog [Lantus Solostar Pen] 26 unit SQ QAM 12/15/20 lisinopriL [Zestril] 5 mg PO BID 12/15/20 Cyclobenzaprine [Flexeril] 10 mg PO TID PRN #60 tab 12/16/20 Ascorbic Acid [Vitamin C] 500 mg PO DAILY 04/04/21 Benztropine Mesylate [Cogentin] 1 mg PO BID 04/04/21 Ezetimibe [Zetia] 10 mg PO DAILY 04/04/21 Fluticasone Nasal [place] [Flonase Nasal [place]] 2 spray EA NOSTRIL DAILY 04/04/21 Gabapentin [Neurontin] 100 mg PO BID 04/04/21 Multivitamins, Thera Liquid [Theragran Liquid (formulary)] 5 ml PO DAILY 04/04/21 [place]-3 Fatty Acids [[place]-3] 1,000 mg PO DAILY 04/04/21 Paliperidone IM [Invega Sustenna] 156 mg IM QMONTHLY 04/04/21 Semaglutide [Ozempic] 0.25 mg SQ MO 04/04/21
== END ==
LOC: PNWHC3 08:13
DX: M47.812 Spondylosis without myelopathy or radiculopathy, cervical region (principal); M48.02 Spinal stenosis, cervical region; M79.18 Myalgia, other site; G89.4 Chronic pain syndrome; E11.9 Type 2 diabetes mellitus without complications; K21.9 Gastro-esophageal reflux disease without esophagitis; E78.5 Hyperlipidemia, unspecified; I10 Essential (primary) hypertension; G40.909 Epilepsy, unspecified, not intractable, without status epilepticus; Z79.4 Long term (current) use of insulin; Z79.899 Other long term (current) drug therapy; Z79.84 Long term (current) use of oral hypoglycemic drugs; Z91.018 Allergy to other foods; Z91.040 Latex allergy status; Z88.6 Allergy status to analgesic agent; Z91.048 Other nonmedicinal substance allergy status; Z88.1 Allergy status to other antibiotic agents; Z88.8 Allergy status to other drugs, medicaments and biological substances; Z91.09 Other allergy status, other than to drugs and biological substances
CPT/HCPCS: 99211

== ENCOUNTER → 2021-08-16 | Outpatient (CLI) | payer MEDICARE, OTHER ==
--- NOTE | 2021-08-17 05:32 | MR ---
EXAMINATION TYPE: MR brain wo/w con DATE OF EXAM: 08/16/2021 COMPARISON: 08/27/2012 HISTORY: Near syncope, hx of seizure CONTRAST: Standard multiplanar, multisequence MRI departmental protocol images were obtained without contrast a nd with 8 mL intravenous Gadavist gadolinium contrast. Diffusion images show no evidence of an acute infarct. Ventricles have normal size. There is no mass effect or midline shift. There is no evidence of intracranial hemorrhage. There are numerous foci of abnormal increased signal at the johnston-white matter junction of both cerebral hemispheres. These measu re up to almost 1 cm. Total number is more than 30. The brainstem is intact. Cerebellum is intact. Se lla turcica is intact. Corpus callosum is intact. The contrast images show no pathologic enhancement. There is normal enhancement of the venous sinuses. IMPRESSION: Numerous white matter high signal foci are somewhat peripheral and more likely related to microvascul ar ischemia. Demyelinating disease is not excluded. Mucous retention cysts noted in the left maxillar y sinus. There is a moderate amount of white matter disease compared to old exam.
== END | disposition home or self-care (01) ==
LOC: RADMRIMAIN 07:16
PROVIDERS: ATTEND Family Medicine
DX: R55 Syncope and collapse (principal); J34.1 Cyst and mucocele of nose and nasal sinus; R90.82 White matter disease, unspecified
CPT/HCPCS: 70553; A9585

== ENCOUNTER 2021-12-30 18:31 | Emergency (ER) | payer MEDICARE, OTHER ==
[2021-12-30 18:38] VITALS: BP 162/94; TEMP 98.5
--- NOTE | 2021-12-30 19:01 | ED ---
General Adult HPI - General Chief complaint: Neuro Symptoms/Deficit Stated complaint: High Sugar, Time Seen by Provider: 12/30/21 18:41 Source: patient Mode of arrival: ambulatory Limitations: no limitations - History of Present Illness Initial comments: This patient is 56-year-old woman who presents with complaint that she has not been feeling well going back approximately 24 hours now. The patient states that she had eaten pizza yesterday and then noticed that her blood sugar was running over 300. She states that she was feeling somewhat tremulous, fatigue, urinating frequently. She checked her blood sugar today it was still over 200. She did give additional long-acting insulin but states she is not feeling much better. In addition today she is having nausea but no vomiting. -: hour(s) Severity scale (1-10): 0 Consistency: constant Improves with: none Worsens with: none Associated Symptoms: malaise, nausea/vomiting Treatments Prior to Arrival: other (Long-acting insulin) - Related Data Home Medications Medication Instructions Recorded Confirmed Insulin Glargine,Hum.rec.anlog 20 unit SQ DAILY 12/15/20 12/30/21 [Lantus Solostar Pen] lisinopriL [Zestril] 5 mg PO BID 12/15/20 12/30/21 Ezetimibe [Zetia] 10 mg PO DAILY 04/04/21 12/30/21 Allergies Allergy/AdvReac Type Severity Reaction Status Date / Time banana Allergy Unknown Verified 12/30/21 21:22 celery Allergy Anaphylaxis Verified 12/30/21 21:22 latex Allergy Rash/Hives Verified 12/30/21 21:22 saccharin Allergy lip/tongue Verified 12/30/21 21:22 swelling tramadol Allergy feels Verified 12/30/21 21:22 bruised/stiff in face tree nut Allergy Anaphylaxis Verified 12/30/21 21:22 adhesive AdvReac "BANDAIDS Verified 12/30/21 21:22 TAKE OFF SKIN" aspartame AdvReac Vomiting Verified 12/30/21 21:22 carbamazepine [From Tegretol] AdvReac feels as Verified 12/30/21 21:22 if her body was beat cephalexin [From Keflex] AdvReac yeast Verified 12/30/21 21:22 infection chicken derived [Chicken] AdvReac positive Verified 12/30/21 21:22 allergy testing glipizide AdvReac depression Verified 12/30/21 21:22 liraglutide [From Victoza] AdvReac Abdominal Verified 12/30/21 21:22 Pain lurasidone [From Latuda] AdvReac Hallucinati Verified 12/30/21 21:22 ons metformin AdvReac depression Verified 12/30/21 21:22 paliperidone [From Invega] AdvReac Tired, Verified 12/30/21 21:22 cramping in jaw pioglitazone [From Actos] AdvReac gained 10# Verified 12/30/21 21:22 water weight repaglinide AdvReac Unknown Verified 12/30/21 21:22 semaglutide [From Ozempic] AdvReac SWELLING Verified 12/30/21 21:22 OF THYROID sitagliptin [From Januvia] AdvReac pulsating Verified 12/30/21 21:22 facial pain [id number] Reductase AdvReac elev liver Verified 12/30/21 21:22 Inhibitor enzymes dust mites Allergy Unknown Uncoded 12/30/21 18:37 pitaschio Allergy Anaphylaxis Uncoded 12/30/21 18:37 raw celery Allergy Anaphylaxis Uncoded 12/30/21 18:37 Review of Systems ROS Statement: Those systems with pertinent positive or pertinent negative responses have been documented in the HPI. ROS Other: All systems not noted in ROS Statement are negative. Constitutional: Reports: weakness. Denies: fever, chills Eyes: Denies: vision change Respiratory: Denies: cough, dyspnea Cardiovascular: Reports: palpitations. Denies: chest pain, edema, syncope Gastrointestinal: Reports: nausea. Denies: abdominal pain, vomiting, diarrhea, constipation Genitourinary: Reports: frequency. Denies: dysuria, hematuria Musculoskeletal: Denies: back pain Skin: Denies: rash Neurological: Reports: headache. Denies: weakness, numbness Past Medical History Past Medical History: Blood Disorder, Cancer, Diabetes Mellitus, Eye Disorder, GERD/Reflux, Hyperlipidemia, Hypertension, Musculoskeletal Disorder, Seizure Disorder, Skin Disorder, Sleep Apnea/CPAP/BIPAP, Syncope Additional Past Medical History / Comment(s): Hx severe anemia, sm leaky valve, hx blood clot Rt ovary, skin cancer spinal stenosis, narrow-angle glaucoma, fatty liver. Neck pain, NT bilat arms. No CPAP. neurological dermatitis, Last seizure 2005, varicose veins. History of Any Multi-Drug Resistant Organisms: None Reported Past Surgical History: Back Surgery, Hysterectomy, Tubal Ligation Additional Past Surgical History / Comment(s): Lumbar discectomy 2013, lt foot removal of foriegn body, Laser varicose veins, Skin cancer exc scalp Past Anesthesia/Blood Transfusion Reactions: Previous Problems w/ Anesthesia Additional Past Anesthesia/Blood Transfusion Reaction / Comment(s): Family has awakened in surgery - son, father Past Psychological History: Anxiety, Depression, Schizoaffective Disorder Smoking Status: Never smoker - Past Family History Father Family Medical History: Cancer, CVA/TIA, Diabetes Mellitus, Hypertension, Thyroid Disorder Additional Family Medical History / Comment(s): Lymphoma, neuropathy, chronic fatigue syndrome Mother Family Medical History: Cancer, CVA/TIA, Diabetes Mellitus Additional Family Medical History / Comment(s): Cervical cancer. Sister(s) Family Medical History: Cancer Additional Family Medical History / Comment(s): breast cancer General Exam Limitations: no limitations General appearance: alert, in no apparent distress Head exam: Present: atraumatic, normocephalic Eye exam: Present: normal appearance, PERRL, EOMI. Absent: scleral icterus, conjunctival injection ENT exam: Present: mucous membranes dry Neck exam: Present: normal inspection Respiratory exam: Present: normal lung sounds bilaterally. Absent: respiratory distress, wheezes, rales, rhonchi, stridor Cardiovascular Exam: Present: regular rate, normal rhythm, normal heart sounds. Absent: systolic murmur, diastolic murmur, rubs, gallop GI/Abdominal exam: Present: soft. Absent: distended, tenderness, guarding, rebound, rigid, mass Extremities exam: Present: normal inspection, normal capillary refill. Absent: pedal edema, calf tenderness Back exam: Present: normal inspection. Absent: CVA tenderness (R), CVA tenderness (L) Neurological exam: Present: alert, oriented X3. Absent: motor sensory deficit Skin exam: Present: warm, dry, intact, normal color. Absent: rash Course Vital Signs 12/30/21 18:33 Temperature 98.5 F Pulse Rate 110 H Respiratory 20 Rate Blood Pressure 162/94 O2 Sat by Pulse 99 Oximetry EKG Findings - EKG Results: EKG: interpreted by ERMD, WNL, sinus rhythm (Rate 82 bpm), normal axis, normal QRS, normal ST/T, no acute changes Medical Decision Making - Lab Data Result diagrams: 12/30/21 19:07 12/30/21 19:07 Lab Results 12/30/21 12/30/21 12/30/21 Range/Units 19:00 19:07 19:07 WBC 6.3 (3.8-10.6) k/uL RBC 4.49 (3.80-5.40) m/uL Hgb 13.0 (11.4-16.0) gm/dL Hct 39.9 (34.0-46.0) % MCV 88.8 (80.0-100.0) fL MCH 28.9 (25.0-35.0) pg MCHC 32.5 (31.0-37.0) g/dL RDW 13.8 (11.5-15.5) % Plt Count 310 (150-450) k/uL MPV 8.9 Neutrophils % 52 % Lymphocytes % 40 % Monocytes % 4 % Eosinophils % 2 % Basophils % 1 % Neutrophils # 3.3 (1.3-7.7) k/uL Lymphocytes # 2.5 (1.0-4.8) k/uL Monocytes # 0.2 (0-1.0) k/uL Eosinophils # 0.1 (0-0.7) k/uL Basophils # 0.1 (0-0.2) k/uL Sodium 134 L (137-145) mmol/L Potassium 4.3 (3.5-5.1) mmol/L Chloride 102 (98-107) mmol/L Carbon Dioxide 19 L (22-30) mmol/L Anion Gap 13 mmol/L BUN 16 (7-17) mg/dL Creatinine 0.91 (0.52-1.04) mg/dL Est GFR (CKD-EPI)AfAm 83 (>60 ml/min/1.73 sqM) Est GFR (CKD-EPI)NonAf 72 (>60 ml/min/1.73 sqM) Glucose 357 H (74-99) mg/dL POC Glucose (mg/dL) 331 H (70-110) mg/dL POC Glu Weight Yardage Checker Gordo Rob Plasma Lactic Acid Puneet (0.7-2.0) mmol/L Calcium 9.3 (8.4-10.2) mg/dL Total Bilirubin 0.6 (0.2-1.3) mg/dL AST 49 H (14-36) U/L ALT 25 (4-34) U/L Alkaline Phosphatase 106 (38-126) U/L Troponin I (0.000-0.034) ng/mL Total Protein 6.9 (6.3-8.2) g/dL Albumin 4.3 (3.5-5.0) g/dL Amylase 90 (30-110) U/L Lipase 199 (23-300) U/L Acetone, Qual Negative (Negative) 12/30/21 12/30/21 Range/Units 19:07 19:07 WBC (3.8-10.6) k/uL RBC (3.80-5.40) m/uL Hgb (11.4-16.0) gm/dL Hct (34.0-46.0) % MCV (80.0-100.0) fL MCH (25.0-35.0) pg MCHC (31.0-37.0) g/dL RDW (11.5-15.5) % Plt Count (150-450) k/uL MPV Neutrophils % % Lymphocytes % % Monocytes % % Eosinophils % % Basophils % % Neutrophils # (1.3-7.7) k/uL Lymphocytes # (1.0-4.8) k/uL Monocytes # (0-1.0) k/uL Eosinophils # (0-0.7) k/uL Basophils # (0-0.2) k/uL Sodium (137-145) mmol/L Potassium (3.5-5.1) mmol/L Chloride (98-107) mmol/L Carbon Dioxide (22-30) mmol/L Anion Gap mmol/L BUN (7-17) mg/dL Creatinine (0.52-1.04) mg/dL Est GFR (CKD-EPI)AfAm (>60 ml/min/1.73 sqM) Est GFR (CKD-EPI)NonAf (>60 ml/min/1.73 sqM) Glucose (74-99) mg/dL POC Glucose (mg/dL) (70-110) mg/dL POC Glu Weight Yardage Checker ID Plasma Lactic Acid Puneet 1.5 (0.7-2.0) mmol/L Calcium (8.4-10.2) mg/dL Total Bilirubin (0.2-1.3) mg/dL AST (14-36) U/L ALT (4-34) U/L Alkaline Phosphatase (38-126) U/L Troponin I <0.012 (0.000-0.034) ng/mL Total Protein (6.3-8.2) g/dL Albumin (3.5-5.0) g/dL Amylase (30-110) U/L Lipase (23-300) U/L Acetone, Qual (Negative) Disposition Clinical Impression: Hyperglycemia Disposition: HOME SELF-CARE Condition: Good Instructions (If sedation given, give patient instructions): Diabetic Hyperglycemia (ED) Is patient prescribed a controlled substance at d/c from ED?: No Referrals: Petty Christy MD [Primary Care Provider] - 1-2 days
[2021-12-30] MEDS ORDERED: SODIUM CHLORIDE 0.9% 2,000 ML IV ONE (19:03)
[2021-12-30] MEDS ORDERED: INSULIN REGULAR 100 UNIT/ML VIAL (IV) IV STA (19:03)
[2021-12-30 19:04] LABS: Glucose,Whole Blood 331 mg/dL (70-110)
[2021-12-30 19:14] LABS: Basophils # (A) 0.1 k/uL (0-0.2); Basophils % (A) 1 %; Eosinophils # (A) 0.1 k/uL (0-0.7); Eosinophils % (A) 2 %; HCT 39.9 % (34.0-46.0); Lymphocytes # (A) 2.5 k/uL (1.0-4.8); Lymphocytes % (A) 40 %; MCH 28.9 pg (25.0-35.0); MCHC 32.5 g/dL (31.0-37.0); MCV 88.8 fL (80.0-100.0); Mean Platelet Volume 8.9; Monocytes # (A) 0.2 k/uL (0-1.0); Monocytes % (A) 4 %; Neutrophils # (A) 3.3 k/uL (1.3-7.7); Neutrophils % (A) 52 %; Platelet Count 310 k/uL (150-450); RBC 4.49 m/uL (3.80-5.40); RDW 13.8 % (11.5-15.5); WBC 6.3 k/uL (3.8-10.6)
[2021-12-30 19:27] LABS: ALT 25 U/L (4-34); AST 49 U/L (14-36); African American GFR (CKD) 83 (>60 ml/min/1.73 sqM); Albumin 4.3 g/dL (3.5-5.0); Alkaline Phosphatase 106 U/L (38-126); Amylase 90 U/L (30-110); Anion Gap 13 mmol/L; Blood Urea Nitrogen 16 mg/dL (7-17); Calcium 9.3 mg/dL (8.4-10.2); Carbon Dioxide 19 mmol/L (22-30); Chloride 102 mmol/L (98-107); Glucose 357 mg/dL (74-99); Lipase 199 U/L (23-300); Non-African American GFR(CKD) 72 (>60 ml/min/1.73 sqM); Potassium 4.3 mmol/L (3.5-5.1); Sodium 134 mmol/L (137-145); Total Bilirubin 0.6 mg/dL (0.2-1.3); Total Protein 6.9 g/dL (6.3-8.2)
[2021-12-30] MEDS ORDERED: ONDANSETRON 4 MG/2 ML VIAL IVP STA (20:34)
[2021-12-30 22:18] VITALS: PULSE 74; RESP 18
== END 2021-12-30 22:15 | disposition home or self-care (01) ==
LOC: EC 18:31
DX: E11.65 Type 2 diabetes mellitus with hyperglycemia (principal); K21.9 Gastro-esophageal reflux disease without esophagitis; E78.5 Hyperlipidemia, unspecified; I10 Essential (primary) hypertension; F41.9 Anxiety disorder, unspecified; F32.A Depression, unspecified; Z91.018 Allergy to other foods; Z88.8 Allergy status to other drugs, medicaments and biological substances; Z88.2 Allergy status to sulfonamides; Z91.048 Other nonmedicinal substance allergy status; Z79.4 Long term (current) use of insulin; Z79.899 Other long term (current) drug therapy
CPT/HCPCS: 36415; 80053; 82009; 82150; 83605; 83690; 84484; 85025; 93005; 96360; 96361; 99285

== ENCOUNTER 2022-03-14 05:57 | Day surgery (SDC) | payer MEDICARE, OTHER ==
[~2022-03-14 05:57] MED LIST: LACTATED RINGERS 1,000 ML IV SCH
[2022-03-14 06:39] LABS: Glucose,Whole Blood 140 mg/dL (70-110)
[2022-03-14 06:43] VITALS: RESP 16; TEMP 97
[2022-03-14] MEDS ORDERED: LIDOCAINE 2% INJ 20 MG/ML (2 ML VIAL) ONE (07:02)
[2022-03-14] MEDS ORDERED: PROPOFOL 10 MG/ML 20 ML VIAL IV ONE (07:02)
--- NOTE | 2022-03-14 07:24 | P.PCN ---
Date of Procedure: 03/14/22 Procedure(s) Performed: Brief history: Patient is a pleasant 57-year-old white female scheduled for an elective upper endoscopy as well as colonoscopy as a part of evaluation of intermittent dysphagia to solids and screening for colon cancer Procedure performed: Esophagogastroduodenoscopy with biopsy Colonoscopy Preoperative diagnosis: Intermittent dysphagia to solids Screening for colon cancer Anesthesia: MAC Procedure: After informed consent was obtained from the patient was brought into the e ndoscopy unit and IV sedation was administered by anesthesia under continuous monitoring. Initially upper endoscopy was done. The Olympus GF 160 video endoscope was inserted inserted into the mouth and esophagus intubated without any difficulty and was gradually advanced into the stomach and duodenum and carefully examined. The bulb and second part of the duodenum appeared normal. The scope was then withdrawn into the stomach adequately insufflated with air and upon careful examination the antrum had mild gastritis and biopsies were done from this area. The body, cardia and fundus appeared normal. The scope was then withdrawn into the esophagus. The GE junction was located at 40 cm to the incisors. It appeared regular with no erythema erosions or ulcerations. Rest of the esophagus appeared normal. Biopsies were done from the distal esophagus to rule out eosinophilic esophagitis. Patient tolerated the procedure well. At this time the patient continued to remain sedation. Initial digital rectal examination was normal. Olympus CF 160 video colonoscope was then inserted into the rectum and gradually advanced to the cecum without any difficulty. Careful examination was performed as the scope was gradually being withdrawn. The prep was excellent. The cecum, ascending colon, transverse colon, descending colon, sigmoid colon and rectum appeared normal. Retroflexion was performed in the rectum and no lesions were noted. Patient tolerated the procedure well. Impression: 1. Upper endoscopy revealed normal-appearing esophagus with no evidence of esophagitis or esophageal stricture and mild antral gastritis 2. Colonoscopy was within normal limits with no colorectal neoplasia Recommendations: Findings of this examination were discussed with the patient as well as her family. She was advised to follow with the biopsy results. She was advised to have a repeat screening colonoscopy in 10 years.
[2022-03-14 07:43] VITALS: BP 117/79; PULSE 76
== END 2022-03-14 08:12 | disposition home or self-care (01) ==
LOC: ORWHC2ENDO 05:57
PROVIDERS: ATTEND Internal Medicine Gastroenterology
DX: Z12.11 Encounter for screening for malignant neoplasm of colon (principal); K29.50 Unspecified chronic gastritis without bleeding; I10 Essential (primary) hypertension; E78.5 Hyperlipidemia, unspecified; G47.33 Obstructive sleep apnea (adult) (pediatric); E11.9 Type 2 diabetes mellitus without complications; G40.909 Epilepsy, unspecified, not intractable, without status epilepticus; M48.00 Spinal stenosis, site unspecified; Z88.8 Allergy status to other drugs, medicaments and biological substances; Z79.4 Long term (current) use of insulin; Z79.899 Other long term (current) drug therapy; Z98.51 Tubal ligation status; Z98.890 Other specified postprocedural states
CPT/HCPCS: 88305; 43239; J2704; J2001; G0121

== ENCOUNTER 2022-05-12 13:18 | Emergency (ER) | payer MEDICARE, OTHER ==
[2022-05-12 13:32] VITALS: TEMP 97.2
[2022-05-12] MEDS ORDERED: FAMOTIDINE 20 MG/2 ML VIAL IV STA (13:41)
[2022-05-12] MEDS ORDERED: methylPREDNISolone SOD SUCCI 125 MG/2 ML VIAL IV STA (13:41)
[2022-05-12] MEDS ORDERED: SODIUM CHLORIDE 0.9% 1,000 ML IV STA (13:41)
[2022-05-12] MEDS ORDERED: diphenhydrAMINE 50 MG CAP PO STA (13:41)
[2022-05-12] MEDS ORDERED: ONDANSETRON 4 MG/2 ML VIAL IVP STA (13:46)
[2022-05-12] MEDS ORDERED: diphenhydrAMINE 50 MG/ML 1 ML VIAL IVP STA (13:58)
--- NOTE | 2022-05-12 16:22 | ED ---
Allergic Reaction HPI - General Chief complaint: Allergic Reaction Stated complaint: allergic reaction Time Seen by Provider: 05/12/22 13:38 Source: patient Mode of arrival: ambulatory Limitations: no limitations - History of Present Illness Initial Comments: Patient is a 57-year-old female who presents to the emergency department for ALLERGIC reaction. Patient states she has many ALLERGIES including latex, does not recall the cause reaction today. She does note picking up a piece of foam in the hallway and thinks there might have been latex in it. She reports facial swelling redness, and warm sensation in her face. She denies throat swelling and trouble breathing. Does admit to hx of anaphylaxis. No new medication use. - Related Data Home Medications Medication Instructions Recorded Confirmed Insulin Glargine,Hum.rec.anlog 20 unit SQ DAILY 12/15/20 03/09/22 [Lantus Solostar Pen] lisinopriL [Zestril] 5 mg PO BID 12/15/20 03/09/22 Ezetimibe [Zetia] 10 mg PO DAILY 04/04/21 03/09/22 [place]-3 Fatty Acids [[place]-3] 1 tab PO DAILY 03/09/22 03/09/22 Previous Rx's Medication Instructions Recorded predniSONE 50 mg PO DAILY #5 tab 05/12/22 Allergies Allergy/AdvReac Type Severity Reaction Status Date / Time banana Allergy Unknown Verified 05/12/22 13:32 celery Allergy Anaphylaxis Verified 05/12/22 13:32 latex Allergy Rash/Hives Verified 05/12/22 13:32 saccharin Allergy lip/tongue Verified 05/12/22 13:32 swelling tramadol Allergy feels Verified 05/12/22 13:32 bruised/stiff in face tree nut Allergy Anaphylaxis Verified 05/12/22 13:32 adhesive AdvReac "BANDAIDS Verified 05/12/22 13:32 TAKE OFF SKIN" aspartame AdvReac Vomiting Verified 05/12/22 13:32 carbamazepine [From Tegretol] AdvReac feels as Verified 05/12/22 13:32 if her body was beat cephalexin [From Keflex] AdvReac yeast Verified 05/12/22 13:32 infection chicken derived [Chicken] AdvReac positive Verified 05/12/22 13:32 allergy testing glipizide AdvReac depression Verified 05/12/22 13:32 liraglutide [From Victoza] AdvReac Abdominal Verified 05/12/22 13:32 Pain lurasidone [From Latuda] AdvReac Hallucinati Verified 05/12/22 13:32 ons metformin AdvReac depression Verified 05/12/22 13:32 paliperidone [From Invega] AdvReac Tired, Verified 05/12/22 13:32 cramping in jaw pioglitazone [From Actos] AdvReac gained 10# Verified 05/12/22 13:32 water weight repaglinide AdvReac Unknown Verified 05/12/22 13:32 semaglutide [From Ozempic] AdvReac SWELLING Verified 05/12/22 13:32 OF THYROID sitagliptin [From Januvia] AdvReac pulsating Verified 05/12/22 13:32 facial pain [id number] Reductase AdvReac elev liver Verified 05/12/22 13:32 Inhibitor enzymes dust mites Allergy Unknown Uncoded 05/12/22 13:32 pitaschio Allergy Anaphylaxis Uncoded 05/12/22 13:32 raw celery Allergy Anaphylaxis Uncoded 05/12/22 13:32 Review of Systems ROS Statement: Those systems with pertinent positive or pertinent negative responses have been documented in the HPI. ROS Other: All systems not noted in ROS Statement are negative. Past Medical History Past Medical History: Blood Disorder, Cancer, Diabetes Mellitus, Eye Disorder, GERD/Reflux, Hyperlipidemia, Hypertension, Musculoskeletal Disorder, Seizure Disorder, Skin Disorder, Sleep Apnea/CPAP/BIPAP, Syncope Additional Past Medical History / Comment(s): Hx severe anemia, sm leaky valve, hx blood clot Rt ovary, skin cancer, spinal stenosis, fatty liver. Neck pain, NT bilat arms. No CPAP. neurological dermatitis, Last seizure 2005, varicose veins. difficulty swallowing food. History of Any Multi-Drug Resistant Organisms: None Reported Past Surgical History: Back Surgery, Hysterectomy, Tubal Ligation Additional Past Surgical History / Comment(s): Lumbar discectomy 2012, lt foot removal of foriegn body, Laser varicose veins, Skin cancer exc scalp, laser surgery for glaucoma Past Anesthesia/Blood Transfusion Reactions: No Reported Reaction Additional Past Anesthesia/Blood Transfusion Reaction / Comment(s): Family has awakened in surgery - son, father, slow to waqke up Past Psychological History: Anxiety, Depression Smoking Status: Never smoker Past Alcohol Use History: None Reported Past Drug Use History: None Reported - Past Family History Father Family Medical History: Cancer, CVA/TIA, Diabetes Mellitus, Hypertension, Thyroid Disorder Additional Family Medical History / Comment(s): Lymphoma, neuropathy, chronic fatigue syndrome Mother Family Medical History: Cancer, CVA/TIA, Diabetes Mellitus Additional Family Medical History / Comment(s): Cervical cancer. Sister(s) Family Medical History: Cancer Additional Family Medical History / Comment(s): breast cancer General Exam Limitations: no limitations General appearance: alert, in no apparent distress Head exam: Present: atraumatic, normocephalic, other (generalized mild edema of face) Eye exam: Present: normal appearance, PERRL, EOMI. Absent: scleral icterus, conjunctival injection, periorbital swelling Respiratory exam: Present: normal lung sounds bilaterally. Absent: respiratory distress, wheezes, rales, rhonchi, stridor Cardiovascular Exam: Present: regular rate, normal rhythm, normal heart sounds. Absent: systolic murmur, diastolic murmur, rubs, gallop, clicks Neurological exam: Present: alert, oriented X3, CN II-XII intact Psychiatric exam: Present: normal affect, normal mood Skin exam: Present: warm, dry, intact, normal color. Absent: rash Course Vital Signs 05/12/22 05/12/22 05/12/22 13:28 16:38 17:47 Temperature 97.2 F L Pulse Rate 89 90 97 Respiratory 16 18 18 Rate Blood Pressure 155/90 138/86 141/84 O2 Sat by Pulse 100 97 97 Oximetry Medical Decision Making - Medical Decision Making Was pt. sent in by a medical professional or institution (, PA, DOCUMENT RESTORER, urgent care, hospital, or group home...) When possible be specific @ -[No] Did you speak to anyone other than the patient for history (EMS, parent, family, police, friend...)? What history was obtained from this source @ -[No] Did you review nursing and triage notes (agree or disagree)? Why? @ -[I reviewed and agree with nursing and triage notes] Were old charts reviewed (outside hosp., previous admission, EMS record, old EKG, old radiological studies, urgent care reports/EKG's, group home records)? Report findings @ -[No old charts were reviewed] Differential Diagnosis (chest pain, altered mental status, abdominal pain women, abdominal pain men, vaginal bleeding, weakness, fever, dyspnea, syncope, headache, dizziness, GI bleed, back pain, seizure, CVA, palpatations, mental health)? @ -allergic reaction, anaphylaxis, angioedema EKG interpreted by me (3pts min.). @ -[As above] X-rays interpreted by me (1pt min.). @ -[None done] CT interpreted by me (1pt min.). @ -[None done] U/S interpreted by me (1pt. min.). @ -[None done] What testing was considered but not performed or refused? (CT, X-rays, U/S, labs)? Why? @ -[None] What meds were considered but not given or refused? Why? @ -[None] Did you discuss the management of the patient with other professionals (professionals i.e. , PA, DOCUMENT RESTORER, lab, RT, psych nurse, social media marketing manager, business development professional, teacher, labor relations officer, piano case maker)? Give summary @ -[No] Was smoking cessation discussed for >3mins.? @ -[No] Was critical care preformed (if so, how long)? @ -[No] Were there social determinants of health that impacted care today? How? (Homelessness, low income, unemployed, alcoholism, drug addiction, transportation, low edu. Level, literacy, decrease access to med. care, long term, rehab)? @ -[No] Was there de-escalation of care discussed even if they declined (Discuss DNR or withdrawal of care, Hospice)? DNR status @ -[No] What co-morbidities impacted this encounter? (DM, HTN, Smoking, COPD, CAD, Cancer, CVA, ARF, Chemo, Hep., AIDS, mental health diagnosis, sleep apnea, morbid obesity)? @ -[None] Was patient admitted / discharged? Hospital course, mention meds given and route, prescriptions, significant lab abnormalities, going to OR and other pertinent info. @ -This a 57-year-old female presenting for ALLERGIC reaction. There is no obvious cause. Patient looks well, there is generalized mild edema of the face without involvement of the lips or tongue. No trouble breathing, no wheezing. Patient given ALLERGY cocktail. She was observed closely in the emergency department during which swelling improved. Patient continued to feel well. She will be discharged with prednisone prescription. Return parameters discussed. Undiagnosed new problem with uncertain prognosis? @ -[No] Drug Therapy requiring intensive monitoring for toxicity (Heparin, Nitro, Insulin, Cardizem)? @ -[No] Were any procedures done? @ -[No] Diagnosis/symptom? @ -allergic reaction Acute, or Chronic, or Acute on Chronic? @ -acute Uncomplicated (without systemic symptoms) or Complicated (systemic symptoms)? @ -uncomplicated Side effects of treatment? @ -[No] Exacerbation, Progression, or Severe Exacerbation? @ -[No] Poses a threat to life or bodily function? How? (Chest pain, [place], DC, pneumonia, PE, COPD, DKA, ARF, appy, cholecystitis, CVA, Diverticulitis, Homicidal, Suicidal, threat to staff... and all critical care pts) @ -[No] Dr. Enrique is my attending. Disposition Clinical Impression: Allergic reaction Disposition: HOME SELF-CARE Condition: Good Instructions (If sedation given, give patient instructions): Anaphylaxis (ED) Additional Instructions: Take medication as directed. Start prescription tomorrow. Follow-up with primary care provider in one to 2 days. Return to the ED if you experience new, concerning, or worsening symptoms. Prescriptions: predniSONE 50 mg PO DAILY #5 tab Is patient prescribed a controlled substance at d/c from ED?: No Referrals: Petty Christy MD [Primary Care Provider] - 1-2 days Decision Time: 16:21
[2022-05-12 16:38] VITALS: RESP 18
[2022-05-12 17:47] VITALS: BP 141/84; PULSE 97
== END 2022-05-12 18:00 | disposition home or self-care (01) ==
LOC: EC 13:18
DX: T78.2XXA Anaphylactic shock, unspecified, initial encounter (principal); E11.9 Type 2 diabetes mellitus without complications; I10 Essential (primary) hypertension; G40.909 Epilepsy, unspecified, not intractable, without status epilepticus; F41.9 Anxiety disorder, unspecified; F32.A Depression, unspecified; Z91.018 Allergy to other foods; Z88.8 Allergy status to other drugs, medicaments and biological substances; Z91.02 Food additives allergy status; Z91.040 Latex allergy status; Z88.1 Allergy status to other antibiotic agents; Z79.4 Long term (current) use of insulin; Z79.899 Other long term (current) drug therapy
CPT/HCPCS: 99283; 96374; 96375 ×3; J1200; J2930; J2405

== ENCOUNTER → 2022-05-23 | Outpatient (CLI) | payer MEDICARE, OTHER ==
--- NOTE | 2022-05-23 16:05 | XR ---
EXAMINATION TYPE: XR chest 2V DATE OF EXAM: 05/23/2022 COMPARISON: Chest x-ray September 15, 2018 HISTORY: Persistent cough since COVID infection in January. TECHNIQUE: Frontal and lateral views of the chest are obtained. FINDINGS: There is no focal air space opacity, pleural effusion, or pneumothorax seen. The cardiac silhouette size is within normal limits. The osseous structures are intact. IMPRESSION: No acute pulmonary process. No significant change from prior.
== END | disposition home or self-care (01) ==
LOC: RADXRMAIN 12:43
PROVIDERS: ATTEND Internal Medicine
DX: R05.3 Chronic cough (principal)
CPT/HCPCS: 71046

== ENCOUNTER → 2022-05-30 | Outpatient (CLI) | payer MEDICARE, OTHER ==
[2022-05-30 15:39] LABS: Basophils # (A) 0.05 X 10*3/uL (0.00-0.10); Basophils % (A) 1.1 %; Eosinophils # (A) 0.11 X 10*3/uL (0.04-0.35); Eosinophils % (A) 2.4 %; HCT 44.5 % (37.2-46.3); HGB 14.1 g/dL (12.0-15.0); Immature Grans, Automated 0.2 %; Lymphocytes # (A) 2.03 X 10*3/uL (0.90-5.00); Lymphocytes % (A) 44.6 %; MCH 28.3 pg (27.0-32.0); MCHC 31.7 g/dL (32.0-37.0); MCV 89.4 fL (80.0-97.0); Mean Platelet Volume 10.4 fL (9.5-12.2); Monocytes # (A) 0.29 X 10*3/uL (0.20-1.00); Monocytes % (A) 6.4 %; NRBC Per 100 WBC 0 /100 WBCS (0.0-0.0); Neutrophils # (A) 2.06 X 10*3/uL (1.80-7.70); Neutrophils % (A) 45.3 %; Platelet Count 319 X 10*3/uL (140-440); RBC 4.98 X 10*6/uL (4.10-5.20); RDW 13.8 % (11.5-14.5); WBC 4.55 X 10*3/uL (4.50-10.00)
[2022-05-30 16:34] LABS: ALT 27 U/L (8-44); AST 25 U/L (13-35); African American GFR (CKD) 97.1 (60.0-200.0); Albumin 4.6 g/dL (3.8-4.9); Albumin/Globulin Ratio 1.77 (1.60-3.17); Alkaline Phosphatase 105 U/L (41-126); BUN/Creat Ratio 22.29 Ratio (12.00-20.00); Blood Urea Nitrogen 17.7 mg/dL (9.0-27.0); Calcium 9.8 mg/dL (8.7-10.3); Carbon Dioxide 27.6 mmol/L (20.0-27.5); Chloride 102 mmol/L (96-109); Globulin 2.6 g/dL (1.6-3.3); Glucose 140 mg/dL (70-110); LDL Cholesterol,Calculated 218.3 mg/dL (0.0-131.0); Non-African American GFR(CKD) 83.8 (60.0-200.0); Potassium 4.4 mmol/L (3.5-5.5); Sodium 141 mmol/L (135-145); Total Protein 7.2 g/dL (6.2-8.2)
== END | disposition home or self-care (01) ==
LOC: LABWHC1 07:52
PROVIDERS: ATTEND Internal Medicine
DX: E11.9 Type 2 diabetes mellitus without complications (principal)
CPT/HCPCS: 36415; 80053; 80061; 83036; 84443; 85025

== ENCOUNTER → 2022-07-18 | Outpatient (CLI) | payer MEDICARE, OTHER ==
--- NOTE | 2022-07-18 13:21 | BD ---
EXAMINATION TYPE: Axial Bone Density DATE OF EXAM: 07/18/2022 CLINICAL HISTORY: 57 old Female. ICD-10 CODE: Z78.0 Height: 61 Weight: 178.1 FRAX RISK QUESTIONS: Alcohol (3 or more units per day): no Family History (Parent hip fracture): no Glucocorticoids (More than 3mos): no (Ex: prednisone, prednisolone, methylprednisolone, dexamethasone, and hydrocortisone). History of Fracture in Adulthood: yes Secondary Osteoporosis: 1. Type 1 Diabetes: no 2. Hyperthyroidism: no 3. Menopause before 45: 4. Malnutrition: no 5. Chronic liver disease: no Rheumatoid Arthritis: no Current Tobacco Use: no RISK FACTORS HISTORY OF: Surgery to Spine/Hip(right/left)/Wrist (right/left): When: Family History of Osteoporosis: no Active: yes Diet low in dairy products/other sources of calcium: yes Postmenopausal woman: yes Lost more than 2 inches in height since high school: no MEDICATIONS: Prednisone or other steroids: inhaler as needed Additional History: EXAM MEASUREMENTS: Bone mineral densitometry was performed using the [employer] System. Bone mineral density as measured about the Lumbar spine is: ----- L1-L4(G/cm2): 1.060 T Score Values are as follows: ----- L1: -1.6 ----- L2: -0.6 ----- L3: -0.7 ----- L4: -1.3 ----- L1-L4: -1.0 Z Score Values are as follows: ----- L1: -1.3 ----- L2: -0.3 ----- L3: -0.4 ----- L4: -1.0 ----- L1-L4: -0.7 Bone mineral density : baseline Bone mineral density about the R hip (g/cm2): 1.012 Bone mineral density about the L hip (g/cm2): 0.991 T Score values are as follows: -----R Neck: -1.4 -----L Neck: -1.4 -----R Total:0.0 -----L Total: -0.1 Z Score values are as follows: -----R Neck: -0.8 -----L Neck: -0.7 -----R Total: 0.3 -----L Total: 0.2 Bone mineral density : baseline FRAX%s: The graph provided illustrates a 6.2% chance for a major osteoporotic fx and a 0.4% chance fo r the hips probability for fx in 10 years time. IMPRESSION: Osteopenia (T Score between -2.5 and -1). There is slightly increased risk of fracture and the patient may be considered for treatment. Re-Screen 2-5 years. NOTE: T-SCORE=SD OF THE YOUNG ADULT MEAN.
== END | disposition home or self-care (01) ==
LOC: RADBDWWP 07:49
PROVIDERS: ATTEND Internal Medicine
DX: Z13.820 Encounter for screening for osteoporosis (principal); M85.89 Other specified disorders of bone density and structure, multiple sites; Z78.0 Asymptomatic menopausal state
CPT/HCPCS: 77080

== ENCOUNTER 2022-09-17 08:18 | Emergency (ER) | payer MEDICARE, OTHER ==
[2022-09-17] MEDS ORDERED: SODIUM CHLORIDE 0.9% 1,000 ML IV STA (08:34)
[2022-09-17 08:49] LABS: Basophils % (A) 1 %; Eosinophils # (A) 0.1 k/uL (0-0.7); Eosinophils % (A) 2 %; HCT 39.8 % (34.0-46.0); HGB 13.3 gm/dL (11.4-16.0); Lymphocytes # (A) 2.7 k/uL (1.0-4.8); Lymphocytes % (A) 50 %; MCH 29.2 pg (25.0-35.0); MCHC 33.4 g/dL (31.0-37.0); MCV 87.4 fL (80.0-100.0); Mean Platelet Volume 7.6; Monocytes # (A) 0.3 k/uL (0-1.0); Monocytes % (A) 5 %; Neutrophils # (A) 2.1 k/uL (1.3-7.7); Neutrophils % (A) 40 %; Platelet Count 291 k/uL (150-450); RBC 4.55 m/uL (3.80-5.40); RDW 13.8 % (11.5-15.5); WBC 5.3 k/uL (3.8-10.6)
[2022-09-17 09:00] LABS: ALT 26 U/L (4-34); AST 29 U/L (14-36); African American GFR (CKD) >90 (>60 ml/min/1.73 sqM); Alkaline Phosphatase 110 U/L (38-126); Anion Gap 8 mmol/L; Blood Urea Nitrogen 14 mg/dL (7-17); Calcium 8.6 mg/dL (8.4-10.2); Carbon Dioxide 22 mmol/L (22-30); Chloride 110 mmol/L (98-107); Glucose 115 mg/dL (74-99); Lipase 254 U/L (23-300); Non-African American GFR(CKD) >90 (>60 ml/min/1.73 sqM); Sodium 140 mmol/L (137-145); Total Bilirubin 0.6 mg/dL (0.2-1.3); Total Protein 6.7 g/dL (6.3-8.2)
[2022-09-17 09:03] LABS: INR 0.9 (<1.2)
[2022-09-17 09:04] LABS: Partial Thromboplastin Time 22.6 sec (22.0-30.0); Prothrombin Time 9.5 sec (9.0-12.0)
--- NOTE | 2022-09-17 09:16 | XR ---
EXAMINATION TYPE: XR KUB DATE OF EXAM: 09/17/2022 8:48 AM CLINICAL HISTORY: Abdominal pain. Constipation. TECHNIQUE: Two Upright KUB images of the abdomen are obtained. COMPARISON: CT October 03, 2019. FINDINGS: Gas seen in nondistended stomach. Scattered gas is seen in non-distended small and large malka wel loops. There is no visceromegaly, pneumoperitoneum, or abnormal calcification appreciated. The sherlyn ng bases are clear. There is levoconvex scoliosis centered at L2 level. IMPRESSION: Overall nonobstructive bowel gas pattern.
--- NOTE | 2022-09-17 09:28 | ED ---
Abdominal Pain HPI - General Chief Complaint: Abdominal Pain Stated Complaint: constipation Time Seen by Provider: 09/17/22 08:30 Source: patient, RN notes reviewed Mode of arrival: ambulatory Limitations: no limitations - History of Present Illness Initial Comments: 57-year-old female presents emergency Department chief complaint of upper abdominal pain. Patient states that pain intensified while taking a shower this morning. She states that she likes can get a deep breath because of pain. She does with that she's been constipated for 2 weeks and states that she didn't enema but had no relief. Patient does have a history of hypertension diabetes and hyperlipidemia. Patient denies any prior abdominal surgeries no dysuria denies fevers or chills. Denies any back pain - Related Data Home Medications Medication Instructions Recorded Confirmed Insulin Glargine,Hum.rec.anlog 20 unit SQ DAILY 12/15/20 06/12/22 [Lantus Solostar Pen] lisinopriL [Zestril] 5 mg PO BID 12/15/20 06/12/22 Ezetimibe [Zetia] 10 mg PO DAILY 04/04/21 06/12/22 [place]-3 Fatty Acids [[place]-3] 1 tab PO DAILY 03/09/22 06/12/22 Albuterol Sulfate [Proair 90 mcg INHALATION BID 06/12/22 06/12/22 Digihaler] Budesonide [Pulmicort Flexhaler] 2 puff INHALATION DAILY 06/12/22 06/12/22 Allergies Allergy/AdvReac Type Severity Reaction Status Date / Time banana Allergy Unknown Verified 09/17/22 08:25 celery Allergy Anaphylaxis Verified 09/17/22 08:25 latex Allergy Rash/Hives Verified 09/17/22 08:25 saccharin Allergy lip/tongue Verified 09/17/22 08:25 swelling tramadol Allergy feels Verified 09/17/22 08:25 bruised/stiff in face tree nut Allergy Anaphylaxis Verified 09/17/22 08:25 adhesive AdvReac "BANDAIDS Verified 09/17/22 08:25 TAKE OFF SKIN" aspartame AdvReac Vomiting Verified 09/17/22 08:25 carbamazepine [From Tegretol] AdvReac feels as Verified 09/17/22 08:25 if her body was beat cephalexin [From Keflex] AdvReac yeast Verified 09/17/22 08:25 infection chicken derived [Chicken] AdvReac positive Verified 09/17/22 08:25 allergy testing glipizide AdvReac depression Verified 09/17/22 08:25 liraglutide [From Victoza] AdvReac Abdominal Verified 09/17/22 08:25 Pain lurasidone [From Latuda] AdvReac Hallucinati Verified 09/17/22 08:25 ons metformin AdvReac depression Verified 09/17/22 08:25 paliperidone [From Invega] AdvReac Tired, Verified 09/17/22 08:25 cramping in jaw pioglitazone [From Actos] AdvReac gained 10# Verified 09/17/22 08:25 water weight repaglinide AdvReac Unknown Verified 09/17/22 08:25 semaglutide [From Ozempic] AdvReac SWELLING Verified 09/17/22 08:25 OF THYROID sitagliptin [From Januvia] AdvReac pulsating Verified 09/17/22 08:25 facial pain [id number] Reductase AdvReac elev liver Verified 09/17/22 08:25 Inhibitor enzymes dust mites Allergy Unknown Uncoded 09/17/22 08:25 pitaschio Allergy Anaphylaxis Uncoded 09/17/22 08:25 raw celery Allergy Anaphylaxis Uncoded 09/17/22 08:25 Review of Systems ROS Statement: Those systems with pertinent positive or pertinent negative responses have been documented in the HPI. ROS Other: All systems not noted in ROS Statement are negative. Past Medical History Past Medical History: Blood Disorder, Cancer, Diabetes Mellitus, Eye Disorder, GERD/Reflux, Hyperlipidemia, Hypertension, Musculoskeletal Disorder, Seizure Disorder, Skin Disorder, Sleep Apnea/CPAP/BIPAP, Syncope Additional Past Medical History / Comment(s): Hx severe anemia, sm leaky valve, hx blood clot Rt ovary, skin cancer, spinal stenosis, fatty liver. Neck pain, NT bilat arms. No CPAP. neurological dermatitis, Last seizure 2005, varicose veins. difficulty swallowing food. History of Any Multi-Drug Resistant Organisms: None Reported Past Surgical History: Back Surgery, Hysterectomy, Tubal Ligation Additional Past Surgical History / Comment(s): Lumbar discectomy 2012, lt foot removal of foriegn body, Laser varicose veins, Skin cancer exc scalp, laser surgery for glaucoma Past Anesthesia/Blood Transfusion Reactions: No Reported Reaction Additional Past Anesthesia/Blood Transfusion Reaction / Comment(s): Family has awakened in surgery - son, father, slow to waqke up Past Psychological History: Anxiety, Depression Smoking Status: Never smoker Past Alcohol Use History: None Reported Past Drug Use History: None Reported - Past Family History Father Family Medical History: Cancer, CVA/TIA, Diabetes Mellitus, Hypertension, Thyroid Disorder Additional Family Medical History / Comment(s): Lymphoma, neuropathy, chronic fatigue syndrome Mother Family Medical History: Cancer, CVA/TIA, Diabetes Mellitus Additional Family Medical History / Comment(s): Cervical cancer. Sister(s) Family Medical History: Cancer Additional Family Medical History / Comment(s): breast cancer General Exam Limitations: no limitations General appearance: alert, in no apparent distress Head exam: Present: atraumatic, normocephalic, normal inspection Eye exam: Present: normal appearance, PERRL, EOMI. Absent: scleral icterus, conjunctival injection, periorbital swelling ENT exam: Present: normal exam, normal oropharynx, mucous membranes moist Neck exam: Present: normal inspection, full ROM. Absent: tenderness, meningismus, lymphadenopathy Respiratory exam: Present: normal lung sounds bilaterally. Absent: respiratory distress, wheezes, rales, rhonchi, stridor Cardiovascular Exam: Present: regular rate, normal rhythm, normal heart sounds. Absent: systolic murmur, diastolic murmur, rubs, gallop, clicks GI/Abdominal exam: Present: soft, tenderness, normal bowel sounds. Absent: distended, guarding, rebound, rigid Course Vital Signs 09/17/22 09/17/22 08:22 11:25 Temperature 97.7 F 98.1 F Pulse Rate 82 77 Respiratory 20 18 Rate Blood Pressure 142/95 132/68 O2 Sat by Pulse 98 98 Oximetry Medical Decision Making - Medical Decision Making Was pt. sent in by a medical professional or institution (, PA, [employer]AL [employer]TER, urgent care, hospital, or usp...) When possible be specific @ -No Did you speak to anyone other than the patient for history (EMS, parent, family, police, friend...)? What history was obtained from this source @ -No Did you review nursing and triage notes (agree or disagree)? Why? @ -I reviewed and agree with nursing and triage notes Were old charts reviewed (outside hosp., previous admission, EMS record, old EKG, old radiological studies, urgent care reports/EKG's, usp records)? Report findings @ -No old charts were reviewed Differential Diagnosis (chest pain, altered mental status, abdominal pain women, abdominal pain men, vaginal bleeding, weakness, fever, dyspnea, syncope, headache, dizziness, GI bleed, back pain, seizure, CVA, palpatations, mental health, musculoskeletal)? @ -nDifferential Abdominal Pain Women: Appendicitis, Cholecystitis, diverticulosis, ischemic bowel, pancreatitis, hepatitis, UTI, gastroenteritis, AAA, incarcerated hernia, bowel obstruction, constipation, inflammatory bowel, hepatitis, peptic ulcer disease, splenic infarction, perforated viscus, vulvitis, ovarian torsion, PID, kidney stone, placenta abruption, this is not meant to be an all-inclusive listcable EKG interpreted by me (3pts min.). @ -As above X-rays interpreted by me (1pt min.). @ -X-ray KUB shows no evidence of obstruction, there is large amount of stool burden CT interpreted by me (1pt min.). @ -None done U/S interpreted by me (1pt. min.). @ -None done What testing was considered but not performed or refused? (CT, X-rays, U/S, labs)? Why? @ -None What meds were considered but not given or refused? Why? @ -None Did you discuss the management of the patient with other professionals (professionals i.e. , PA, [employer]TER, lab, RT, psych nurse, professor of social work, deck hand, teacher, ethics officer, case specialist)? Give summary @ -No Was smoking cessation discussed for >3mins.? @ -No Was critical care preformed (if so, how long)? @ -No Were there social determinants of health that impacted care today? How? (Homelessness, low income, unemployed, alcoholism, drug addiction, transportation, low edu. Level, literacy, decrease access to med. care, senior living, rehab)? @ -No Was there de-escalation of care discussed even if they declined (Discuss DNR or withdrawal of care, Hospice)? DNR status @ -No What co-morbidities impacted this encounter? (DM, HTN, Smoking, COPD, CAD, Cancer, CVA, ARF, Chemo, Hep., AIDS, mental health diagnosis, sleep apnea, morbid obesity)? @ -None Was patient admitted / discharged? Hospital course, mention meds given and route , prescriptions, significant lab abnormalities, going to OR and other pertinent info. @ -Discharge workup was negative other than evidence of constipation patient received enema, milk of magnesia states that she had a large bowel movement feels greatly improved. Patient is discharged in stable condition return parameters were discussed. hospital course Undiagnosed new problem with uncertain prognosis? @ -No Drug Therapy requiring intensive monitoring for toxicity (Heparin, Nitro, Insulin, Cardizem)? @ -No Were any procedures done? @ -No Diagnosis/symptom? @ -Constipation, abdominal pain Acute, or Chronic, or Acute on Chronic? @ -Acute Uncomplicated (without systemic symptoms) or Complicated (systemic symptoms)? @ -Uncomplicated Side effects of treatment? @ -No Exacerbation, Progression, or Severe Exacerbation? @ -No Poses a threat to life or bodily function? How? (Chest pain, [place], [place], pneumonia, PE, COPD, DKA, ARF, appy, cholecystitis, CVA, Diverticulitis, Homicidal, Suicidal, threat to staff... and all critical care pts) @ -No - Lab Data Result diagrams: 09/17/22 08:36 09/17/22 08:36 Lab Results 09/17/22 09/17/22 09/17/22 Range/Units 08:36 08:36 08:36 WBC 5.3 (3.8-10.6) k/uL RBC 4.55 (3.80-5.40) m/uL Hgb 13.3 (11.4-16.0) gm/dL Hct 39.8 (34.0-46.0) % MCV 87.4 (80.0-100.0) fL MCH 29.2 (25.0-35.0) pg MCHC 33.4 (31.0-37.0) g/dL RDW 13.8 (11.5-15.5) % Plt Count 291 (150-450) k/uL MPV 7.6 Neutrophils % 40 % Lymphocytes % 50 % Monocytes % 5 % Eosinophils % 2 % Basophils % 1 % Neutrophils # 2.1 (1.3-7.7) k/uL Lymphocytes # 2.7 (1.0-4.8) k/uL Monocytes # 0.3 (0-1.0) k/uL Eosinophils # 0.1 (0-0.7) k/uL Basophils # 0.0 (0-0.2) k/uL PT 9.5 (9.0-12.0) sec INR 0.9 (<1.2) APTT 22.6 (22.0-30.0) sec Sodium 140 (137-145) mmol/L Potassium 4.0 (3.5-5.1) mmol/L Chloride 110 H (98-107) mmol/L Carbon Dioxide 22 (22-30) mmol/L Anion Gap 8 mmol/L BUN 14 (7-17) mg/dL Creatinine 0.62 (0.52-1.04) mg/dL Est GFR (CKD-EPI)AfAm >90 (>60 ml/min/1.73 sqM) Est GFR (CKD-EPI)NonAf >90 (>60 ml/min/1.73 sqM) Glucose 115 H (74-99) mg/dL Plasma Lactic Acid Puneet (0.7-2.0) mmol/L Calcium 8.6 (8.4-10.2) mg/dL Total Bilirubin 0.6 (0.2-1.3) mg/dL AST 29 (14-36) U/L ALT 26 (4-34) U/L Alkaline Phosphatase 110 (38-126) U/L Troponin I (0.000-0.034) ng/mL Total Protein 6.7 (6.3-8.2) g/dL Albumin 4.0 (3.5-5.0) g/dL Lipase 254 (23-300) U/L 09/17/22 09/17/22 Range/Units 08:36 08:36 WBC (3.8-10.6) k/uL RBC (3.80-5.40) m/uL Hgb (11.4-16.0) gm/dL Hct (34.0-46.0) % MCV (80.0-100.0) fL MCH (25.0-35.0) pg MCHC (31.0-37.0) g/dL RDW (11.5-15.5) % Plt Count (150-450) k/uL MPV Neutrophils % % Lymphocytes % % Monocytes % % Eosinophils % % Basophils % % Neutrophils # (1.3-7.7) k/uL Lymphocytes # (1.0-4.8) k/uL Monocytes # (0-1.0) k/uL Eosinophils # (0-0.7) k/uL Basophils # (0-0.2) k/uL PT (9.0-12.0) sec INR (<1.2) APTT (22.0-30.0) sec Sodium (137-145) mmol/L Potassium (3.5-5.1) mmol/L Chloride (98-107) mmol/L Carbon Dioxide (22-30) mmol/L Anion Gap mmol/L BUN (7-17) mg/dL Creatinine (0.52-1.04) mg/dL Est GFR (CKD-EPI)AfAm (>60 ml/min/1.73 sqM) Est GFR (CKD-EPI)NonAf (>60 ml/min/1.73 sqM) Glucose (74-99) mg/dL Plasma Lactic Acid Puneet 1.0 (0.7-2.0) mmol/L Calcium (8.4-10.2) mg/dL Total Bilirubin (0.2-1.3) mg/dL AST (14-36) U/L ALT (4-34) U/L Alkaline Phosphatase (38-126) U/L Troponin I <0.012 (0.000-0.034) ng/mL Total Protein (6.3-8.2) g/dL Albumin (3.5-5.0) g/dL Lipase (23-300) U/L - EKG Data -: EKG Interpreted by Me EKG Comments: EKG performed at 8:34 sinus rhythm rate of 74 MO 154 QRS 87 QT/QTC 375/403 Disposition Clinical Impression: Abdominal pain, Constipation Disposition: HOME SELF-CARE Condition: Stable Instructions (If sedation given, give patient instructions): Constipation (ED) Additional Instructions: Please return to the Emergency Department if symptoms worsen or any other concerns. Is patient prescribed a controlled substance at d/c from ED?: No Referrals: Marcello Colvin MD [Primary Care Provider] - 1-2 days Time of Disposition: 09:42
[2022-09-17] MEDS ORDERED: MAGNESIUM HYDROXIDE 2,400 MG/10 ML CUP PO STA ×2 (10:09→10:20)
[2022-09-17 11:26] VITALS: BP 132/68; PULSE 77; RESP 18; TEMP 98.1
== END 2022-09-17 11:00 | disposition home or self-care (01) ==
LOC: EC 08:18
DX: K59.00 Constipation, unspecified (principal); I10 Essential (primary) hypertension; E11.9 Type 2 diabetes mellitus without complications; K21.9 Gastro-esophageal reflux disease without esophagitis; G47.30 Sleep apnea, unspecified; F41.9 Anxiety disorder, unspecified; F32.A Depression, unspecified; Z79.4 Long term (current) use of insulin; Z79.899 Other long term (current) drug therapy; Z88.8 Allergy status to other drugs, medicaments and biological substances; Z91.018 Allergy to other foods; Z91.040 Latex allergy status; Z91.010 Allergy to peanuts
CPT/HCPCS: 36415; 74018; 80053; 83605; 83690; 84484; 85025; 85610; 85730; 93005; 96361; 99284

== ENCOUNTER 2023-04-15 10:58 | Emergency (ER) | payer MEDICARE, OTHER ==
[2023-04-15] MEDS ORDERED: METOCLOPRAMIDE 5 MG/ML 2 ML VIAL IVP STA (11:28)
[2023-04-15] MEDS ORDERED: SODIUM CHLORIDE 0.9% 1,000 ML IV STA (11:28)
--- NOTE | 2023-04-15 11:48 | ED ---
Nausea/Vomiting/Diarrhea HPI - General Chief complaint: Nausea/Vomiting/Diarrhea Stated complaint: Abd Pain, Vomiting Time Seen by Provider: 04/15/23 11:09 Source: patient, family, RN notes reviewed Mode of arrival: ambulatory Limitations: no limitations - History of Present Illness Initial comments: Patient is a 58-year-old female presented to ER with chief complaint of epigastric pain. Patient states going on since Sunday, [id number]. Patient does have a past medical history significant for diabetes. Patient was recently on Ozempic and then switched to Rybelsus. Patient reports she has not been able to eat anything and she will just vomited up. Patient is currently endorsing nausea. Patient states she has been having solid stools but there is a watery substance also coming out. Patient is also reporting mild dizziness and describes it as the redness spinning. Patient does has a history of hypertension and is worried her blood pressure is too high. Patient is on hypertensive medications. Patient denies any shortness of breath, chest pain, peripheral edema, or dysuria. - Related Data Home Medications Medication Instructions Recorded Confirmed Insulin Glargine,Hum.rec.anlog 20 unit SQ DAILY 12/15/20 06/12/22 [Lantus Solostar Pen] lisinopriL [Zestril] 5 mg PO BID 12/15/20 06/12/22 Ezetimibe [Zetia] 10 mg PO DAILY 04/04/21 06/12/22 [place]-3 Fatty Acids [[place]-3] 1 tab PO DAILY 03/09/22 06/12/22 Albuterol Sulfate [Proair 90 mcg INHALATION BID 06/12/22 06/12/22 Digihaler] Budesonide [Pulmicort Flexhaler] 2 puff INHALATION DAILY 06/12/22 06/12/22 Previous Rx's Medication Instructions Recorded Metoclopramide [Reglan] 5 mg PO ACHS #10 tab 04/15/23 Allergies Allergy/AdvReac Type Severity Reaction Status Date / Time banana Allergy Unknown Verified 04/15/23 11:03 celery Allergy Anaphylaxis Verified 04/15/23 11:03 latex Allergy Rash/Hives Verified 04/15/23 11:03 saccharin Allergy lip/tongue Verified 04/15/23 11:03 swelling tramadol Allergy feels Verified 04/15/23 11:03 bruised/stiff in face tree nut Allergy Anaphylaxis Verified 04/15/23 11:03 adhesive AdvReac "BANDAIDS Verified 04/15/23 11:03 TAKE OFF SKIN" aspartame AdvReac Vomiting Verified 04/15/23 11:03 carbamazepine [From Tegretol] AdvReac feels as Verified 04/15/23 11:03 if her body was beat cephalexin [From Keflex] AdvReac yeast Verified 04/15/23 11:03 infection chicken derived [Chicken] AdvReac positive Verified 04/15/23 11:03 allergy testing glipizide AdvReac depression Verified 04/15/23 11:03 liraglutide [From Victoza] AdvReac Abdominal Verified 04/15/23 11:03 Pain lurasidone [From Latuda] AdvReac Hallucinati Verified 04/15/23 11:03 ons metformin AdvReac depression Verified 04/15/23 11:03 paliperidone [From Invega] AdvReac Tired, Verified 04/15/23 11:03 cramping in jaw pioglitazone [From Actos] AdvReac gained 10# Verified 04/15/23 11:03 water weight repaglinide AdvReac Unknown Verified 04/15/23 11:03 semaglutide [From Ozempic] AdvReac SWELLING Verified 04/15/23 11:03 OF THYROID sitagliptin [From Januvia] AdvReac pulsating Verified 04/15/23 11:03 facial pain [id number] Reductase AdvReac elev liver Verified 04/15/23 11:03 Inhibitor enzymes dust mites Allergy Unknown Uncoded 04/15/23 11:03 pitaschio Allergy Anaphylaxis Uncoded 04/15/23 11:03 raw celery Allergy Anaphylaxis Uncoded 04/15/23 11:03 Review of Systems ROS Statement: Those systems with pertinent positive or pertinent negative responses have been documented in the HPI. ROS Other: All systems not noted in ROS Statement are negative. Past Medical History Past Medical History: Blood Disorder, Cancer, Diabetes Mellitus, Eye Disorder, GERD/Reflux, Hyperlipidemia, Hypertension, Musculoskeletal Disorder, Seizure Disorder, Skin Disorder, Sleep Apnea/CPAP/BIPAP, Syncope Additional Past Medical History / Comment(s): Hx severe anemia, sm leaky valve, hx blood clot Rt ovary, skin cancer, spinal stenosis, fatty liver. Neck pain, NT bilat arms. No CPAP. neurological dermatitis, Last seizure 2005, varicose veins. difficulty swallowing food. History of Any Multi-Drug Resistant Organisms: None Reported Past Surgical History: Back Surgery, Hysterectomy, Tubal Ligation Additional Past Surgical History / Comment(s): Lumbar discectomy 2012, lt foot removal of foriegn body, Laser varicose veins, Skin cancer exc scalp, laser surgery for glaucoma Past Anesthesia/Blood Transfusion Reactions: No Reported Reaction Additional Past Anesthesia/Blood Transfusion Reaction / Comment(s): Family has awakened in surgery - son, father, slow to waqke up Past Psychological History: Anxiety, Depression Smoking Status: Never smoker Past Alcohol Use History: None Reported Past Drug Use History: None Reported - Past Family History Father Family Medical History: Cancer, CVA/TIA, Diabetes Mellitus, Hypertension, Thyroid Disorder Additional Family Medical History / Comment(s): Lymphoma, neuropathy, chronic fatigue syndrome Mother Family Medical History: Cancer, CVA/TIA, Diabetes Mellitus Additional Family Medical History / Comment(s): Cervical cancer. Sister(s) Family Medical History: Cancer Additional Family Medical History / Comment(s): breast cancer General Exam Limitations: no limitations General appearance: alert, in no apparent distress Head exam: Present: atraumatic, normocephalic, normal inspection Eye exam: Present: normal appearance, PERRL, EOMI. Absent: scleral icterus, conjunctival injection, periorbital swelling Pupils: Present: normal accommodation ENT exam: Present: normal exam, normal oropharynx, mucous membranes moist, TM's normal bilaterally, normal external ear exam Neck exam: Present: normal inspection. Absent: tenderness, meningismus, lymphadenopathy Respiratory exam: Present: normal lung sounds bilaterally. Absent: respiratory distress, wheezes, rales, rhonchi, stridor Cardiovascular Exam: Present: regular rate, normal rhythm, normal heart sounds. Absent: systolic murmur, diastolic murmur, rubs, gallop, clicks GI/Abdominal exam: Present: soft, tenderness (LUQ/LLQ), normal bowel sounds Neurological exam: Present: alert, oriented X3, CN II-XII intact Psychiatric exam: Present: normal affect, normal mood Skin exam: Present: warm, dry, intact, normal color. Absent: rash Course Vital Signs 04/15/23 11:00 Temperature 98.4 F Pulse Rate 78 Respiratory 20 Rate Blood Pressure 156/93 O2 Sat by Pulse 99 Oximetry Medical Decision Making - Medical Decision Making Was pt. sent in by a medical professional or institution ([facility], [facility], urgent care, hospital, or fpc...) When possible be specific @ -No Did you speak to anyone other than the patient for history (EMS, parent, family, police, friend...)? What history was obtained from this source @ -Family provided some HPI Did you review nursing and triage notes (agree or disagree)? Why? @ -I reviewed and agree with nursing and triage notes Were old charts reviewed (outside hosp., previous admission, EMS record, old EKG, old radiological studies, urgent care reports/EKG's, fpc records)? Report findings @ -No old charts were reviewed Differential Diagnosis (chest pain, altered mental status, abdominal pain women, abdominal pain men, vaginal bleeding, weakness, fever, dyspnea, syncope, headache, dizziness, GI bleed, back pain, seizure, CVA, palpatations, mental health, musculoskeletal)? @ -Differential Abdominal Pain Women: Appendicitis, Cholecystitis, diverticu losis, ischemic bowel, pancreatitis, hepatitis, UTI, gastroenteritis, AAA, incarcerated hernia, bowel obstruction, constipation, inflammatory bowel, hepatitis, peptic ulcer disease, splenic infarction, perforated viscus, vulvitis, ovarian torsion, PID, kidney stone, placenta abruption, this is not m eant to be an all-inclusive list EKG interpreted by me (3pts min.). @ -As above X-rays interpreted by me (1pt min.). @ -None done CT interpreted by me (1pt min.). @ -CT abdomen and pelvis shows no acute process. U/S interpreted by me (1pt. min.). @ -None done What testing was considered but not performed or refused? (CT, X-rays, U/S, labs)? Why? @ -None What meds were considered but not given or refused? Why? @ -None Did you discuss the management of the patient with other professionals (professionals i.e. [facility], [facility], lab, RT, psych nurse, social security specialist, inside solar sales consultant, teacher, traffic officer, telephonic nurse case manager)? Give summary @ -No Was smoking cessation discussed for >3mins.? @ -No Was critical care preformed (if so, how long)? @ -No Were there social determinants of health that impacted care today? How? (Homelessness, low income, unemployed, alcoholism, drug addiction, transportation, low edu. Level, literacy, decrease access to med. care, senior living, rehab)? @ -No Was there de-escalation of care discussed even if they declined (Discuss DNR or withdrawal of care, Hospice)? DNR status @ -No What co-morbidities impacted this encounter? (DM, HTN, Smoking, COPD, CAD, Cancer, CVA, ARF, Chemo, Hep., AIDS, mental health diagnosis, sleep apnea, morbid obesity)? @ -Hypertension, diabetes mellitus type II Was patient admitted / discharged? Hospital course, mention meds given and route, prescriptions, significant lab abnormalities, going to OR and other pertinent info. @ -Discharge. Patient is a 58-year-old female presented ER with chief complaint of abdominal pain. Upon examination, patient's vital signs are stable. Physical exam was significant for epigastric and left upper quadrant tenderness. There is also mild suprapubic tenderness. Labs obtained in the ER were unimpressive. Urine analysis was negative for signs of UTI. Troponin was negative. Cepheid was also negative. CT abdomen and pelvis showed no acute process. Patient did receive 1 L of IV fluids and IV 5 mg of Reglan for symptom control in the ER. Patient states after medication she did feel mildly better. I discussed laboratory and imaging findings with the patient. I advised her to follow-up with GI and her PCP. I suggested patient try PediaSure or smoothies to maintain her sugars. I encouraged her to try to drink water and eat small amount of foods at one time. I also spoke with patient about her blood pressure and that she should continue taking her prescribed lisinopril until next PCP visit. Patient will be di scharged in stable condition with follow-up to GI/primary care physician. Patient will be prescribed Reglan for nausea. Patient expressed understanding and agreement with care plan. Undiagnosed new problem with uncertain prognosis? @ -No Drug Therapy requiring intensive monitoring for toxicity (Heparin, Nitro, Insulin, Cardizem)? @ -No Were any procedures done? @ -No Diagnosis/symptom? @ -Nausea and vomiting/LUQ abdominal pain Acute, or Chronic, or Acute on Chronic? @ -Acute Uncomplicated (without systemic symptoms) or Complicated (systemic symptoms)? @ -Complicated Side effects of treatment? @ -No Exacerbation, Progression, or Severe Exacerbation? @ -No Poses a threat to life or bodily function? How? (Chest pain, USA, MD, pneumonia, PE, COPD, DKA, ARF, appy, cholecystitis, CVA, Diverticulitis, Homicidal, Suicidal, threat to staff... and all critical care pts) @ -No - Lab Data Result diagrams: 04/15/23 12:04/15/23 12: Lab Results 04/15/23 04/15/23 04/15/23 Range/Units 12: 12: 12: WBC 5.1 (3.8-10.6) k/uL RBC 4.83 (3.80-5.40) m/uL Hgb 14.1 (11.4-16.0) gm/dL Hct 41.9 (34.0-46.0) % MCV 86.9 (80.0-100.0) fL MCH 29.1 (25.0-35.0) pg MCHC 33.5 (31.0-37.0) g/dL RDW 13.3 (11.5-15.5) % Plt Count 314 (150-450) k/uL MPV 8.3 Neutrophils % 47 % Lymphocytes % 43 % Monocytes % 5 % Eosinophils % 1 % Basophils % 0 % Neutrophils # 2.4 (1.3-7.7) k/uL Lymphocytes # 2.2 (1.0-4.8) k/uL Monocytes # 0.3 (0-1.0) k/uL Eosinophils # 0.0 (0-0.7) k/uL Basophils # 0.0 (0-0.2) k/uL Sodium 137 (137-145) mmol/L Potassium 4.3 (3.5-5.1) mmol/L Chloride 103 (98-107) mmol/L Carbon Dioxide 21 L (22-30) mmol/L Anion Gap 13 mmol/L BUN 11 (7-17) mg/dL Creatinine 0.61 (0.52-1.04) mg/dL Est GFR (CKD-EPI)AfAm >90 (>60 ml/min/1.73 sqM) Est GFR (CKD-EPI)NonAf >90 (>60 ml/min/1.73 sqM) Glucose 114 H (74-99) mg/dL Plasma Lactic Acid Puneet 1.3 (0.7-2.0) mmol/L Calcium 9.6 (8.4-10.2) mg/dL Total Bilirubin 0.6 (0.2-1.3) mg/dL AST 35 (14-36) U/L ALT 32 (4-34) U/L Alkaline Phosphatase 91 (38-126) U/L Troponin I (0.000-0.034) ng/mL Total Protein 7.3 (6.3-8.2) g/dL Albumin 4.4 (3.5-5.0) g/dL Amylase 99 (30-110) U/L Lipase 294 (23-300) U/L Urine Color Urine Appearance (Clear) Urine pH (5.0-8.0) Ur Specific [place] (1.001-1.035) Urine Protein (Negative) Urine Glucose (UA) (Negative) Urine Ketones (Negative) Urine Blood (Negative) Urine Nitrite (Negative) Urine Bilirubin (Negative) Urine Urobilinogen (<2.0) mg/dL Ur Leukocyte Esterase (Negative) Influenza Type A (PCR) (Not Detectd) Influenza Type B (PCR) (Not Detectd) RSV (PCR) (Not Detectd) SARS-CoV-2 (PCR) (Not Detectd) 04/15/23 04/15/23 04/15/23 Range/Units 12:22 12:22 13:14 WBC (3.8-10.6) k/uL RBC (3.80-5.40) m/uL Hgb (11.4-16.0) gm/dL Hct (34.0-46.0) % MCV (80.0-100.0) fL MCH (25.0-35.0) pg MCHC (31.0-37.0) g/dL RDW (11.5-15.5) % Plt Count (150-450) k/uL MPV Neutrophils % % Lymphocytes % % Monocytes % % Eosinophils % % Basophils % % Neutrophils # (1.3-7.7) k/uL Lymphocytes # (1.0-4.8) k/uL Monocytes # (0-1.0) k/uL Eosinophils # (0-0.7) k/uL Basophils # (0-0.2) k/uL Sodium (137-145) mmol/L Potassium (3.5-5.1) mmol/L Chloride (98-107) mmol/L Carbon Dioxide (22-30) mmol/L Anion Gap mmol/L BUN (7-17) mg/dL Creatinine (0.52-1.04) mg/dL Est GFR (CKD-EPI)AfAm (>60 ml/min/1.73 sqM) Est GFR (CKD-EPI)NonAf (>60 ml/min/1.73 sqM) Glucose (74-99) mg/dL Plasma Lactic Acid Puneet (0.7-2.0) mmol/L Calcium (8.4-10.2) mg/dL Total Bilirubin (0.2-1.3) mg/dL AST (14-36) U/L ALT (4-34) U/L Alkaline Phosphatase (38-126) U/L Troponin I <0.012 (0.000-0.034) ng/mL Total Protein (6.3-8.2) g/dL Albumin (3.5-5.0) g/dL Amylase (30-110) U/L Lipase (23-300) U/L Urine Color Colorless Urine Appearance Clear (Clear) Urine pH 7.5 (5.0-8.0) Ur Specific [place] 1.003 (1.001-1.035) Urine Protein Negative (Negative) Urine Glucose (UA) Negative (Negative) Urine Ketones Negative (Negative) Urine Blood Negative (Negative) Urine Nitrite Negative (Negative) Urine Bilirubin Negative (Negative) Urine Urobilinogen <2.0 (<2.0) mg/dL Ur Leukocyte Esterase Negative (Negative) Influenza Type A (PCR) Not Detected (Not Detectd) Influenza Type B (PCR) Not Detected (Not Detectd) RSV (PCR) Not Detected (Not Detectd) SARS-CoV-2 (PCR) Not Detected (Not Detectd) - EKG Data -: EKG Interpreted by Me EKG Comments: EKG taken at 11:56 shows a normal sinus rhythm with no acute ST segment or T- wave abnormalities present. Ventricular rate 65, MS interval 160, QRS duration 92, QT/QTC 423/434. - Radiology Data Radiology results: report reviewed, image reviewed Disposition Clinical Impression: Abdominal pain Disposition: HOME SELF-CARE Condition: Stable Additional Instructions: Please return to the Emergency Department if symptoms worsen or any other concerns. Prescriptions: Metoclopramide [Reglan] 5 mg PO ACHS #10 tab Is patient prescribed a controlled substance at d/c from ED?: No Referrals: Marcello Colvin MD [Primary Care Provider] - 1-2 days Ann-Marie Templeton MD [STAFF PHYSICIAN] - 1-2 days Time of Disposition: 15:14
[2023-04-15 13:06] LABS: Basophils % (A) 0 %; Eosinophils % (A) 1 %; HCT 41.9 % (34.0-46.0); HGB 14.1 gm/dL (11.4-16.0); Lymphocytes # (A) 2.2 k/uL (1.0-4.8); Lymphocytes % (A) 43 %; MCH 29.1 pg (25.0-35.0); MCHC 33.5 g/dL (31.0-37.0); MCV 86.9 fL (80.0-100.0); Mean Platelet Volume 8.3; Monocytes # (A) 0.3 k/uL (0-1.0); Monocytes % (A) 5 %; Neutrophils # (A) 2.4 k/uL (1.3-7.7); Neutrophils % (A) 47 %; Platelet Count 314 k/uL (150-450); RBC 4.83 m/uL (3.80-5.40); RDW 13.3 % (11.5-15.5); WBC 5.1 k/uL (3.8-10.6)
[2023-04-15 13:15] LABS: ALT 32 U/L (4-34); AST 35 U/L (14-36); African American GFR (CKD) >90 (>60 ml/min/1.73 sqM); Albumin 4.4 g/dL (3.5-5.0); Alkaline Phosphatase 91 U/L (38-126); Amylase 99 U/L (30-110); Anion Gap 13 mmol/L; Blood Urea Nitrogen 11 mg/dL (7-17); Calcium 9.6 mg/dL (8.4-10.2); Carbon Dioxide 21 mmol/L (22-30); Chloride 103 mmol/L (98-107); Glucose 114 mg/dL (74-99); Lipase 294 U/L (23-300); Non-African American GFR(CKD) >90 (>60 ml/min/1.73 sqM); Potassium 4.3 mmol/L (3.5-5.1); Sodium 137 mmol/L (137-145); Total Bilirubin 0.6 mg/dL (0.2-1.3); Total Protein 7.3 g/dL (6.3-8.2)
[2023-04-15 14:04] LABS: Appearance,Urine Clear (Clear); Bilirubin,Urine Negative (Negative); Blood,Urine Negative (Negative); Color,Urine Colorless; Glucose,Urine (UA) Negative (Negative); Ketones,Urine Negative (Negative); Leukocyte Esterase,Urine Negative (Negative); Nitrite,Urine Negative (Negative); PH, Urine 7.5 (5.0-8.0); Protein,Urine Negative (Negative); Specific Gravity,Urine 1.003 (1.001-1.035); Urobilinogen,Urine <2.0 mg/dL (<2.0)
--- NOTE | 2023-04-15 14:24 | CT ---
EXAMINATION TYPE: CT abdomen pelvis w con DATE OF EXAM: 04/15/2023 COMPARISON: None HISTORY: abd pain CT DLP: 950.2 mGycm Automated exposure control for dose reduction was used. TECHNIQUE: Helical acquisition of images was performed from the lung bases through the pelvis. CONTRAST: Performed without Oral Contrast and with IV Contrast, patient injected with 100 mL of Isovue 300. FINDINGS: The lung bases are clear. The gallbladder is normal without distention, wall thickening, pericholecystic fluid or gallstones. T here is no biliary ductal dilatation. There is no focal mass or organomegaly involving the liver, pancreas, spleen or adrenal glands. There is no solid renal mass or hydronephrosis and there is homogeneous contrast enhancement of the r enal parenchyma. The caliber the abdominal aorta is normal is no retroperitoneal adenopathy or hemorr yovani. The bowel loops are normal in caliber and there is no evidence of dilatation or obstruction. No infla mmatory changes are identified in the bowel wall or mesentery. There is no free intraperitoneal air or fluid. No pelvic mass, free fluid, abscess or adenopathy. The osseous structures and soft tissues are intact. IMPRESSION: No significant abnormality seen.
[2023-04-15 16:03] VITALS: BP 140/89; PULSE 70; RESP 16; TEMP 98.7
== END 2023-04-15 16:45 | disposition home or self-care (01) ==
LOC: EC 10:58
DX: R10.13 Epigastric pain (principal); R10.12 Left upper quadrant pain; R10.32 Left lower quadrant pain; R11.2 Nausea with vomiting, unspecified; E11.9 Type 2 diabetes mellitus without complications; I10 Essential (primary) hypertension; E78.5 Hyperlipidemia, unspecified; Z20.822 Contact with and (suspected) exposure to COVID-19; Z79.4 Long term (current) use of insulin; Z79.899 Other long term (current) drug therapy; Z91.018 Allergy to other foods; Z91.040 Latex allergy status; Z91.09 Other allergy status, other than to drugs and biological substances; Z88.1 Allergy status to other antibiotic agents; Z88.8 Allergy status to other drugs, medicaments and biological substances; Z88.5 Allergy status to narcotic agent
CPT/HCPCS: 36415; 93005; 80053; 82150; 83605; 83690; 84484; 85025; 81003; 87636; 74177; 99284; 96374; J2765; Q9967

== ENCOUNTER → 2023-06-11 | Outpatient (CLI) | payer MEDICARE, OTHER ==
--- NOTE | 2023-06-17 19:40 | MR ---
EXAMINATION TYPE: MR ankle RT wo con DATE OF EXAM: 06/11/2023 COMPARISON: NONE HISTORY: 58-year-old female S93.401A, lateral aspect pain, sprain. Marker placed. TECHNIQUE: Multiplanar, multisequence images of the right ankle were obtained without IV contrast. FINDINGS: No evidence for acute or healing fracture. The tibiotalar and subtalar joints appear aligned. Mild osteoarthritic change scattered within the calcaneal cuboidal joint and more mild to moderate at the fourth TMT joint. Preserved fatty signal within the sinus tarsi. Tarsal tunnel is clear. Smooth delineation to the Achilles tendon. Tiny plantar heel spur. There are multiple longitudinal split tears involving a 1.5 to 2.0 cm segment of the peroneal brevis at and just below the lateral malleolus. At the same level, there is a partial-thickness split of the peroneal longus. Moderate tenosynovial fluid as it courses along the cuboid groove. The ATFL appears very thin and may be chronically torn. PTFL and CFL appear intact. The deltoid spring ligament complex appears intact. Medial flexor tendons appear intact. However, the re is a type II accessory navicular demonstrating some degenerative signal change. The syndesmosis appears intact. Anterior extensor tendons appear intact. Marker placed along the dorsal lateral aspect of the hindfoot overlying the region of the sinus Tarsi . IMPRESSION: 1. Peroneal tendinosis. There are multiple split tears of the peroneus brevis at and just below the l ateral malleolus for a span of 1.5 to 2.0 cm. At this same level, there is a small, partial-thickness split of the peroneal longus. Moderate tenosynovitis as it courses along the undersurface of the cub oid groove. 2. Very thin and possibly chronically torn ATFL. 3. Mildly degenerative type II accessory navicular. 4. Additional scattered mild osteoarthritic change calcaneocuboid joint and fourth TMT joint.
== END | disposition home or self-care (01) ==
LOC: RADMRIMAIN 11:06
PROVIDERS: ATTEND Internal Medicine
DX: M19.071 Primary osteoarthritis, right ankle and foot (principal); M24.871 Other specific joint derangements of right ankle, not elsewhere classified; M65.871 Other synovitis and tenosynovitis, right ankle and foot; M89.8X7 Other specified disorders of bone, ankle and foot; S93.401A Sprain of unspecified ligament of right ankle, initial encounter; X58.XXXA Exposure to other specified factors, initial encounter

== ENCOUNTER 2023-07-13 05:46 | Day surgery (SDC) | payer MEDICARE, OTHER ==
[~2023-07-13 05:46] MED LIST changes: -LACTATED RINGERS 1,000 ML IV SCH; +Pre Op ABX Message 1 EACH MISC MISCELLANE ONE
[2023-07-13] MEDS: LACTATED RINGERS 1,000 ML IV SCH (06:20)
[2023-07-13] MEDS ORDERED: MIDAZOLAM 2 MG/2 ML VIAL IV PRN (07:00)
[2023-07-13] MEDS: MIDAZOLAM 2 MG/2 ML VIAL IVP ONE (07:06)
[2023-07-13] MEDS: SCOPOLAMINE 1 MG/72 HR PATCH TRANSDERM ONE (07:10)
[2023-07-13] MEDS: DEXAMETHASONE SOD PHOSPHATE 4 MG/ML 1 ML VIAL IV ONE (07:10)
[2023-07-13] MEDS: ONDANSETRON 4 MG/2 ML VIAL IVP ONE (07:10)
[2023-07-13 07:20] LABS: Glucose,Whole Blood 164 mg/dL (70-110)
[2023-07-13 07:24] LABS: Basophils % (A) 1 %; Eosinophils # (A) 0.1 k/uL (0-0.7); Eosinophils % (A) 2 %; HCT 40.8 % (34.0-46.0); HGB 13.5 gm/dL (11.4-16.0); Lymphocytes # (A) 2.1 k/uL (1.0-4.8); Lymphocytes % (A) 38 %; MCH 29.4 pg (25.0-35.0); MCV 89.1 fL (80.0-100.0); Mean Platelet Volume 8.4; Monocytes # (A) 0.3 k/uL (0-1.0); Monocytes % (A) 6 %; Neutrophils # (A) 2.8 k/uL (1.3-7.7); Neutrophils % (A) 52 %; Platelet Count 285 k/uL (150-450); RBC 4.58 m/uL (3.80-5.40); RDW 13.8 % (11.5-15.5); WBC 5.5 k/uL (3.8-10.6)
[2023-07-13] MEDS ORDERED: PHENYLEPHRINE 10 MG/ML VIAL ONE (07:24)
[2023-07-13] MEDS ORDERED: fentaNYL (PF) 50 MCG/ML 2 ML AMP ONE (07:24)
[2023-07-13] MEDS ORDERED: MIDAZOLAM 2 MG/2 ML VIAL ONE (07:24)
[2023-07-13] MEDS ORDERED: SUCCINYLCHOLINE CHLORIDE 200 MG/10 ML VIAL IV ONE (07:24)
[2023-07-13] MEDS ORDERED: LIDOCAINE 1% INJ 10MG/ML (20 ML MDV) ONE (07:24)
[2023-07-13] MEDS ORDERED: DEXAMETHASONE SOD PHOSPHATE 4 MG/ML 1 ML VIAL ONE (07:24)
[2023-07-13] MEDS ORDERED: ROPIVACAINE 5 MG/ML 30 ML VIAL ONE (07:24)
[2023-07-13] MEDS ORDERED: PROPOFOL 10 MG/ML 20 ML VIAL IV ONE (07:24)
--- NOTE | 2023-07-13 07:26 | P.ANPRN ---
Procedure Note - Anesthesia - Nerve Block Performed Right Popliteal Single Time Out Performed: Yes Date of Procedure: 07/13/23 Procedure Start Time: 07:05 Procedure Stop Time: 07:09 Location of Patient: PreOp Indication: Acute Post-Operative Pain, Analgesia, Requested by Surgeon Sedation Type: Sedate with meaningful contact maintained Preparation: Sterile Prep Position: Left Lateral Catheter: None Needle Types: Pajunk Needle Gauge: 21 Ultrasound used to visualize needle placement: Yes Ultrasound used to observe medication spread: Yes Injectate: 0.5% Ropivacaine (see comment for volume) (Ropiv 20ml+decadron 4mg) Blood Aspirated: No Pain Paresthesia on Injection Noted: No Resistance on Injection: Normal Image Stored and Saved: Yes Events: Uneventful and Well Tolerated
--- NOTE | 2023-07-13 07:28 | P.ANPRN ---
Procedure Note - Anesthesia - Nerve Block Performed Right Adductor Canal Single Time Out Performed: Yes Date of Procedure: 07/13/23 Procedure Start Time: 07:09 Procedure Stop Time: 07:14 Location of Patient: PreOp Indication: Acute Post-Operative Pain, Analgesia, Requested by Surgeon Sedation Type: Sedate with meaningful contact maintained Preparation: Sterile Prep Position: Supine Catheter: None Needle Types: Pajunk Needle Gauge: 21 Ultrasound used to visualize needle placement: Yes Ultrasound used to observe medication spread: Yes Injectate: 0.5% Ropivacaine (see comment for volume) (Ropiv 15ml+[id number]) Blood Aspirated: No Pain Paresthesia on Injection Noted: No Resistance on Injection: Normal Image Stored and Saved: Yes Events: Uneventful and Well Tolerated
[2023-07-13] MEDS: ceFAZolin 1,000 MG in SODIUM CHLORIDE 0.9% 1,000 ML IRRIGATION ONE (07:29)
[2023-07-13] MEDS: SODIUM CHLORIDE 0.9% 100 ML with ceFAZolin 2,000 MG IV ONE (07:29)
[2023-07-13 07:35] LABS: African American GFR (CKD) >90 (>60 ml/min/1.73 sqM); Anion Gap 7 mmol/L; Blood Urea Nitrogen 20 mg/dL (7-17); Calcium 9.4 mg/dL (8.4-10.2); Carbon Dioxide 26 mmol/L (22-30); Chloride 104 mmol/L (98-107); Glucose 156 mg/dL (74-99); Non-African American GFR(CKD) >90 (>60 ml/min/1.73 sqM); Potassium 4.5 mmol/L (3.5-5.1); Sodium 137 mmol/L (137-145)
[2023-07-13] MEDS: LACTATED RINGERS 1,000 ML IV ONE (08:33)
[2023-07-13] MEDS: HYDROmorphone 0.5 MG/0.5 ML SYRINGE IVP PRN (09:02)
--- NOTE | 2023-07-13 09:03 | P.OP ---
Date of Procedure: 07/13/23 Preoperative Diagnosis: 1. Right ankle instability 2. Spontaneous rupture flexor tendon right ankle Postoperative Diagnosis: 1. Right ankle instability 2. Spontaneous rupture flexor tendon right ankle (Peroneus longus) Procedure(s) Performed: 1. Secondary repair right lateral ankle ligaments 2. Secondary repair flexor tendon right ankle Implants: Arthrex internal brace Arthrex fiber John anchors 2 Anesthesia: GETA Surgeon: Marv Nash Estimated Blood Loss (ml): 1 Pathology: none sent Condition: stable Disposition: PACU Description of Procedure: Prior to the patient being brought to the operating room, anesthesia administered a nerve block on the affected extremity. The patient was brought into the operative room and placed on table supine position. Timeout was taken to confirm correct patient identifiers, correct laterality of surgery, and correct procedure. Once all staff in the room were in agreement with the timeout, the patient was induced and placed under general anesthesia. A well- padded tourniquet was placed on the left calf and a bump underneath the hip of the expected extremity to internally rotate the leg. The leg was then prepped and draped in usual manner. The leg was exsanguinated and the tourniquet inflated to 250 mmHg. Attention was directed over the anterior lateral ankle, where a incision was made just anterior to lateral malleolus. The incision was deepened down to the subcutaneous tissue careful to identify, avoid, and retract any neurovascular structures and cauterize any bleeding vessels. Blunt dissection was continued posterior and anterior down to the lateral ankle joint capsule and ligamentous structures as well as the peroneal tendon sheath. Small stab incision was made to the peroneal tendon sheath, and then blunt instrumentation was inserted deep to the sheath and a scalpel used to open the retinaculum as well as the peroneal tendon sheath to expose peroneal tendons. Both tendons were delivered in the surgical foot. The peroneus brevis was intact however the peroneus longus s howed a split longitudinal tear with thickening. A Scalpel was used to resect the abnormal portion of the tendon. 2-0 Vicryl was then used to retract tubularize the peroneus longus tendon. The tendons were placed back in the peroneal groove on the posterior aspect of the fibula. The were taken through range of motion and glided smoothly without and catching. The wound is irrigated thoroughly with antibiotic saline. 0 Vicryl was used to repair the retinaculum so that was under sewn into the fibular groove to lock the tendons in place. The rest of the tendon sheath and retinaculum were repaired with 0 Vicryl. Then attention was directed to the anterior ankle joint capsule.. The capsule and ligamentous structures were sharply incised off of the anterior surface the lateral malleolus. A Rosendo was used to remove the cortical bone on the anterior surface the lateral malleolus and the roughened edges smoothed with a rasp. This is to allow adhesion of the ligaments upon repair. With the ankle in neutral position, the soft tissue over the lateral aspect of the talus, anterior to the joint surface, and near the junction of the neck, was palpated for the location of the 4.75 mm anchor. A small stab incision was made through the tissue and then the drill hole for the 4.75 mm anchor was made into the talus in such a way to avoid the ankle and subtalar joints. The hole was tapped and then the 4.75 mm anchor inserted and advanced down to proper depth. The ethernet network architect was removed and the suture was set aside. The same drill bit was used for the drill hole in the lateral malleolus for the 3.5 mm anchor. Respiratory Therapy Assistant holes for the fiber Hussain anchors were made, one inferior and one superior, to the 3.4 mm drill hole. With the drill guide still in place, the fiber Hussain anchors were inserted through the guide and then impacted down to proper depth. The guide was removed as was the ethernet network architect. Tension was placed on the suture to lock the anchor into the bone. The wound is then thoroughly irrigated with antibiotic saline. The suture on the fiber Hussain anchors was used to capture the distal ligamentous and capsular structures. With the ankle and maximum dorsiflexion and eversion, the suture was tied bringing the ligament and capsular structures back to the anterior surface the lateral malleolus. The 2 arms of the suture from the 4.75 mm anchor were then inserted through the 3.5 mm anchor, which was then aligned with the drill hole lateral malleolus. Utilizing described tensioning techniques, the anchor and suture were inserted into lateral malleolus and the anchor advanced until proper depth. At that point ankle was tested for stability: Were anterior drawer and inversion stress are negative. The wound is irrigated with antibiotic saline. The fiber Hussain suture was then used to sew the soft tissue flap from the periosteum of the lateral malleolus over the repair site in a pants over vest fashion. The subcutaneous layer was closed with 4-0 Monocryl. And skin closure done with 4-0 Stratafix in a running subcuticular manner. Dermal glue was placed over the incision and allowed to dry. Steri- Strips were applied and then a Arthrex jumpstart dressing. A dry sterile dressing was applied to the ankle. The tourniquet was released and capillary refill return to all digits on the foot.
[2023-07-13 09:10] LABS: Glucose,Whole Blood 159 mg/dL (70-110)
[2023-07-13 09:11] VITALS: TEMP 97.2
[2023-07-13] MEDS: KETOROLAC 15 MG/ML 1 ML VIAL ONE (10:20)
[2023-07-13 10:30] VITALS: RESP 16
[2023-07-13] MEDS: HYDROcodone/APAP 5-325MG 1 EACH TAB ONE (10:54)
[2023-07-13 11:14] VITALS: BP 117/78; PULSE 72
== END 2023-07-13 11:34 | disposition home or self-care (01) ==
LOC: OR 05:46
PROVIDERS: ATTEND Podiatrist
DX: M66.371 Spontaneous rupture of flexor tendons, right ankle and foot (principal); M25.371 Other instability, right ankle; G89.18 Other acute postprocedural pain; I10 Essential (primary) hypertension; E11.69 Type 2 diabetes mellitus with other specified complication; E78.5 Hyperlipidemia, unspecified; G47.33 Obstructive sleep apnea (adult) (pediatric); K21.9 Gastro-esophageal reflux disease without esophagitis; Z79.4 Long term (current) use of insulin; Z79.84 Long term (current) use of oral hypoglycemic drugs; Z79.899 Other long term (current) drug therapy; Z91.040 Latex allergy status; Z88.6 Allergy status to analgesic agent; Z91.018 Allergy to other foods; Z91.09 Other allergy status, other than to drugs and biological substances; Z88.8 Allergy status to other drugs, medicaments and biological substances; Z88.1 Allergy status to other antibiotic agents
CPT/HCPCS: 64447; 64445; 80048; 85025; 27698; 27659; C1713 ×2; J2250; J0330; J1100; J2405; J0690; J2001; J3010; J2795; J1885; J2704; J1170; J2371

== ENCOUNTER 2023-08-11 11:46 | Emergency (ER) | payer MEDICARE ==
--- NOTE | 2023-08-11 12:28 | ED ---
Extremity Problem HPI - General Source: patient, RN notes reviewed Mode of arrival: ambulatory Limitations: no limitations <Suyapa Jamison - Last Filed: 08/11/23 12:26> <Jacky Moctezuma - Last Filed: 08/11/23 14:25> - General Chief complaint: Extremity Problem,Nontraumatic Stated complaint: post op comp,ankle swelling Time Seen by Provider: 08/11/23 12:00 - History of Present Illness Initial comments: Quick noteis a 58-year-old female with a chief complaint of right foot pain. States that she underwent tendon ligamental reconstructive surgery about 3 weeks ago and has no complaints of postsurgical complications. Patient states that she woke up this morning with severe pain of her right foot in association to some redness and discomfort along the surgical site. Also endorses feelings of nausea and hot and cold sensations. (Suyapa Jamison) Patient is a pleasant 58-year-old female present to the emergency department with concerns for right ankle swelling. Patient had surgery 3 weeks ago. Patient had been doing well however did strike her ankle on something a couple days ago. Patient states today there is some increased discomfort and swelling. Patient states there is a little bit of redness as well. No fever. (Jacky Moctezuma) - Related Data Home Medications Medication Instructions Recorded Confirmed Insulin Glargine,Hum.rec.anlog 15 unit SQ BID 12/15/20 07/13/23 [Lantus Solostar Pen] lisinopriL [Zestril] 5 mg PO HS 12/15/20 07/13/23 Cariprazine HCl [Vraylar] 1.5 mg PO HS 07/10/23 07/13/23 Clindamycin Topical Soln 1 applic TOPICAL DAILY 07/10/23 07/13/23 [Cleocin-T Topical Soln] Clobetasol Propionate [Temovate 1 applic TOPICAL BID 07/10/23 07/13/23 0.05% Cream] Evolocumab [Repatha Syringe] 140 mg SQ Q14D 07/10/23 07/13/23 Glucosamine Sulfate 1 cap PO DAILY 07/10/23 07/13/23 Ibuprofen 600 mg PO Q6H 07/10/23 07/13/23 Lidocaine 5% Patch [Lidoderm 5% 1 patch TOPICAL DAILY PRN 07/10/23 07/13/23 Patch] Multivitamins, Thera Liquid 1 dose PO DAILY 07/10/23 07/13/23 [Theragran Liquid (formulary)] Nxfopejq-Eguwwnyax-Xutpqdds 1 applic BOTH EYES HS 07/10/23 07/13/23 [Maxitrol Ophth Oint] Wmvwzuim-Zjfpwjayj-Grhaqtat 1 drop BOTH EYES QAM 07/10/23 07/13/23 [Maxitrol Ophth Susp] Omeprazole 20 mg PO QAM 07/10/23 07/13/23 Previous Rx's Medication Instructions Recorded Metoclopramide [Reglan] 5 mg PO ACHS #10 tab 04/15/23 HYDROcodone/APAP 5-325MG [[place] 1 tab PO Q6HR PRN #28 tab 07/13/23 5-325] Gabapentin [Neurontin] 100 mg PO TID 7 Days #21 cap 07/21/23 Doxycycline [Vibramycin] 50 mg PO Q12HR #20 capsule 08/11/23 Allergies Allergy/AdvReac Type Severity Reaction Status Date / Time banana Allergy Unknown Verified 08/11/23 12:18 celery Allergy Anaphylaxis Verified 08/11/23 12:18 latex Allergy Anaphylaxis Verified 08/11/23 12:18 saccharin Allergy lip/tongue Verified 08/11/23 12:18 swelling tramadol Allergy feels Verified 08/11/23 12:18 bruised/stiff in face tree nut Allergy Anaphylaxis Verified 08/11/23 12:18 adhesive AdvReac "BANDAIDS Verified 08/11/23 12:18 TAKE OFF SKIN" aspartame AdvReac Vomiting Verified 08/11/23 12:18 carbamazepine [From Tegretol] AdvReac feels as Verified 08/11/23 12:18 if her body was beat cephalexin [From Keflex] AdvReac yeast Verified 08/11/23 12:18 infection chicken derived [Chicken] AdvReac positive Verified 08/11/23 12:18 allergy testing glipizide AdvReac depression Verified 08/11/23 12:18 lurasidone [From Latuda] AdvReac Hallucinati Verified 08/11/23 12:18 ons metformin AdvReac depression Verified 08/11/23 12:18 paliperidone [From Invega] AdvReac Tired, Verified 08/11/23 12:18 cramping in jaw pioglitazone [From Actos] AdvReac gained 10# Verified 08/11/23 12:18 water weight repaglinide AdvReac Unknown Verified 08/11/23 12:18 sitagliptin [From Januvia] AdvReac pulsating Verified 08/11/23 12:18 facial pain Tvjfbif-KMH-GiO Reductase AdvReac elev liver Verified 08/11/23 12:18 Inhibitor enzymes dust mites Allergy Unknown Uncoded 08/11/23 12:18 pitaschio Allergy Anaphylaxis Uncoded 08/11/23 12:18 raw celery Allergy Anaphylaxis Uncoded 08/11/23 12:18 Review of Systems ROS Other: All systems not noted in ROS Statement are negative. <Suyapa Jamison - Last Filed: 08/11/23 12:26> ROS Other: All systems not noted in ROS Statement are negative. Constitutional: Denies: fever Gastrointestinal: Denies: abdominal pain Musculoskeletal: Reports: as per HPI Skin: Reports: as per HPI <Jacky Moctezuma - Last Filed: 08/11/23 14:25> ROS Statement: Those systems with pertinent positive or pertinent negative responses have been documented in the HPI. Past Medical History Past Medical History: Blood Disorder, Cancer, Diabetes Mellitus, Eye Disorder, GERD/Reflux, Hyperlipidemia, Hypertension, Musculoskeletal Disorder, Seizure Disorder, Skin Disorder, Sleep Apnea/CPAP/BIPAP, Syncope Additional Past Medical History / Comment(s): HAS A SUSPICIOUS SPOT ON OUTER RIGHT ANKLE, WENT TO [facility] WHO SAID IT LOOKED SUPSICIOUS FOR CANCER, SHE WILL REPORT FINDINGS TO DR. CEDILLO (SHE DID NOT BIOPSY, WILL LET DR. CEDILLO DECIDE IF HE WILL DO SURGERY). Hx severe anemia, sm leaky valve, hx blood clot Rt ovary, skin cancer, spinal stenosis, fatty liver. Neck pain, NT bilat arms. No CPAP. neurological dermatitis, Last seizure 2005, varicose veins. difficulty swallowing food. History of Any Multi-Drug Resistant Organisms: None Reported Past Surgical History: Back Surgery, Hysterectomy, Tubal Ligation Additional Past Surgical History / Comment(s): Lumbar discectomy 2012, lt foot removal of foriegn body, Laser varicose veins, Skin cancer exc scalp, laser surgery for glaucoma Past Anesthesia/Blood Transfusion Reactions: No Reported Reaction Additional Past Anesthesia/Blood Transfusion Reaction / Comment(s): Family has awakened in surgery - son, father, slow to wake up Past Psychological History: Anxiety, Depression Smoking Status: Never smoker Past Alcohol Use History: None Reported Past Drug Use History: None Reported - Past Family History Father Family Medical History: Cancer, CVA/TIA, Diabetes Mellitus, Hypertension, Thyroid Disorder Additional Family Medical History / Comment(s): Lymphoma, neuropathy, chronic fatigue syndrome Mother Family Medical History: Cancer, CVA/TIA, Diabetes Mellitus Additional Family Medical History / Comment(s): Cervical cancer. Sister(s) Family Medical History: Cancer Additional Family Medical History / Comment(s): breast cancer <Suyapa Jamison - Last Filed: 08/11/23 12:26> General Exam Limitations: no limitations <Suyapa Jamison - Last Filed: 08/11/23 12:26> Limitations: no limitations General appearance: alert, in no apparent distress Head exam: Present: normocephalic Eye exam: Present: normal appearance Neck exam: Present: normal inspection Respiratory exam: Present: normal lung sounds bilaterally Cardiovascular Exam: Present: regular rate, normal rhythm Expanded Peripheral pulses: 2+: Posterior Tibialis (R), Dorsalis Pedis (R) Extremities exam: Present: other (Right lateral ankle with mild tenderness and mild to moderate swelling. Trace erythema at the incisional site. No warmth. Distally the extremity is neurovascular intact.) Neurological exam: Present: alert. Absent: motor sensory deficit Psychiatric exam: Present: normal affect, normal mood Skin exam: Present: other (Trace erythema at the incisional site.) <Jacky Moctezuma - Last Filed: 08/11/23 14:25> - General Exam Comments Initial Comments: Visual Physical Exam Vital signs reviewed General: Well-appearing, nontoxic, no acute distress. Head: Normocephalic, atraumatic Eyes: PERRLA, EOMI ENT: Airway patent Chest: Nonlabored breathing Skin: No visual rash, normal skin tone Neuro: Alert and oriented 3 Musculoskeletal: No gross abnormalities (Suyapa Jamison) Course Vital Signs 08/11/23 12:15 Temperature 97.4 F L Pulse Rate 76 Respiratory 18 Rate Blood Pressure 166/94 O2 Sat by Pulse 100 Oximetry Medical Decision Making <Suyapa Jamison - Last Filed: 08/11/23 12:26> - Lab Data Result diagrams: 08/11/23 12:35 08/11/23 12:35 <Jose EliasJacky - Last Filed: 08/11/23 14:25> - Medical Decision Making I completed the quick note portion of this chart signed Suyapa Jamison PA-C (Suyapa Jamison) Was pt. sent in by a medical professional or institution ([facility], HEATING AND COOLING SYSTEMS ENGINEER, urgent care, hospital, or halfway...) When possible be specific @ -No Did you speak to anyone other than the patient for history (EMS, parent, family, police, friend...)? What history was obtained from this source @ -No Did you review nursing and triage notes (agree or disagree)? Why? @ -I reviewed and agree with nursing and triage notes Were old charts reviewed (outside hosp., previous admission, EMS record, old EKG, old radiological studies, urgent care reports/EKG's, halfway records)? Report findings @ -No old charts were reviewed Differential Diagnosis (chest pain, altered mental status, abdominal pain women, abdominal pain men, vaginal bleeding, weakness, fever, dyspnea, syncope, headache, dizziness, GI bleed, back pain, seizure, CVA, palpatations, mental health, musculoskeletal)? @ -Differential Musculoskeletal Muscular strain, contusion, ligament sprain, fracture, arthritis, septic arthritis, bursitis, cellulitis, muscle spasm, nerve compression, DVT, arterial occlusion, herpes zoster, electrolyte abnormality, tumor.... This is not meant to be in all inclusive list EKG interpreted by me (3pts min.). @ -As above X-rays interpreted by me (1pt min.). @ -Right foot x-ray shows no acute process CT interpreted by me (1pt min.). @ -None done U/S interpreted by me (1pt. min.). @ -None done What testing was considered but not performed or refused? (CT, X-rays, U/S, labs)? Why? @ -None What meds were considered but not given or refused? Why? @ -None Did you discuss the management of the patient with other professionals (professionals i.e. [facility], HEATING AND COOLING SYSTEMS ENGINEER, lab, RT, psych nurse, social service director, background investigator, teacher, chief contract officer, case worker)? Give summary @ -No Was smoking cessation discussed for >3mins.? @ -No Was critical care preformed (if so, how long)? @ -No Were there social determinants of health that impacted care today? How? (Homelessness, low income, unemployed, alcoholism, drug addiction, transportation, low edu. Level, literacy, decrease access to med. care, senior care, rehab)? @ -No Was there de-escalation of care discussed even if they declined (Discuss DNR or withdrawal of care, Hospice)? DNR status @ -No What co-morbidities impacted this encounter? (DM, HTN, Smoking, COPD, CAD, Cancer, CVA, ARF, Chemo, Hep., AIDS, mental health diagnosis, sleep apnea, morbid obesity)? @ -None Was patient admitted / discharged? Hospital course, mention meds given and route, prescriptions, significant lab abnormalities, going to OR and other pertinent info. @ -Patient presents with postoperative discomfort and swelling. Symptoms appear very mild on exam. No calf tenderness or other area of involvement. No involvement other than the lateral ankle. Patient will be prescribed antibiotics for potential very early infection and recommended close follow-up with her surgeon. Undiagnosed new problem with uncertain prognosis? @ -No Drug Therapy requiring intensive monitoring for toxicity (Heparin, Nitro, Insulin, Cardizem)? @ -No Were any procedures done? @ -No Diagnosis/symptom? @ -Postoperative swelling Acute, or Chronic, or Acute on Chronic? @ -Acute Uncomplicated (without systemic symptoms) or Complicated (systemic symptoms)? @ -Default Side effects of treatment? @ -No Exacerbation, Progression, or Severe Exacerbation? @ -No Poses a threat to life or bodily function? How? (Chest pain, USA, MT, pneumonia, PE, COPD, DKA, ARF, appy, cholecystitis, CVA, Diverticulitis, Homicidal, Suicida l, threat to staff... and all critical care pts) @ -No (Jacky Moctezuma) - Lab Data Lab Results 08/11/23 08/11/23 08/11/23 Range/Units 12:35 12:35 12:35 WBC 6.3 (3.8-10.6) k/uL RBC 4.96 (3.80-5.40) m/uL Hgb 13.9 (11.4-16.0) gm/dL Hct 44.1 (34.0-46.0) % MCV 88.9 (80.0-100.0) fL MCH 28.1 (25.0-35.0) pg MCHC 31.6 (31.0-37.0) g/dL RDW 13.4 (11.5-15.5) % Plt Count 308 (150-450) k/uL MPV 7.9 Neutrophils % 50 % Lymphocytes % 43 % Monocytes % 4 % Eosinophils % 1 % Basophils % 1 % Neutrophils # 3.1 (1.3-7.7) k/uL Lymphocytes # 2.7 (1.0-4.8) k/uL Monocytes # 0.3 (0-1.0) k/uL Eosinophils # 0.1 (0-0.7) k/uL Basophils # 0.0 (0-0.2) k/uL Sodium 139 (137-145) mmol/L Potassium 4.1 (3.5-5.1) mmol/L Chloride 107 (98-107) mmol/L Carbon Dioxide 23 (22-30) mmol/L Anion Gap 9 mmol/L BUN 12 (7-17) mg/dL Creatinine 0.66 (0.52-1.04) mg/dL Est GFR (CKD-EPI)AfAm >90 (>60 ml/min/1.73 sqM) Est GFR (CKD-EPI)NonAf >90 (>60 ml/min/1.73 sqM) Glucose 145 H (74-99) mg/dL Plasma Lactic Acid Puneet 1.4 (0.7-2.0) mmol/L Calcium 9.3 (8.4-10.2) mg/dL Total Bilirubin 0.4 (0.2-1.3) mg/dL AST 32 (14-36) U/L ALT 26 (4-34) U/L Alkaline Phosphatase 125 (38-126) U/L C-Reactive Protein <0.5 (<1.0) mg/dL Total Protein 7.2 (6.3-8.2) g/dL Albumin 4.4 (3.5-5.0) g/dL Disposition <Suyapa Jamison - Last Filed: 08/11/23 12:26> Is patient prescribed a controlled substance at d/c from ED?: No Time of Disposition: 14:24 <Jacky Moctezuma - Last Filed: 08/11/23 14:25> Clinical Impression: Postoperative pain Disposition: HOME SELF-CARE Condition: Stable Instructions (If sedation given, give patient instructions): Surgical Site Infections (ED) Additional Instructions: Prescription sent to pharmacy. Please do follow-up with your surgeon Sunday. Please also follow-up with primary care physician in the next day or 2 for recheck. Return for fever, redness, increased pain, warmth or swelling, worsening symptoms or other concern. Prescriptions: Doxycycline [Vibramycin] 50 mg PO Q12HR #20 capsule Referrals: Marcello Colvin DO [Primary Care Provider] - 1-2 days
[2023-08-11 12:38] VITALS: RESP 18
--- NOTE | 2023-08-11 12:51 | XR ---
EXAMINATION TYPE: XR foot complete RT DATE OF EXAM: 08/11/2023 12:33 PM CLINICAL INDICATION:Female, 58 years old with history of pain after surgery; [facility] COMPARISON: None TECHNIQUE: XR foot complete RT examined in the AP, oblique, and lateral projections. FINDINGS: No evidence of any acute osseous pathology. No evidence of soft tissue swelling. Joints are preserve d. Calcaneal plantar spurring is present. Multifocal joint space narrowing osteophyte formation. IMPRESSION: 1. No evidence of acute fracture. 2. Mild multifocal osteoarthrosis changes.
[2023-08-11 13:08] LABS: Basophils % (A) 1 %; Eosinophils # (A) 0.1 k/uL (0-0.7); Eosinophils % (A) 1 %; HCT 44.1 % (34.0-46.0); HGB 13.9 gm/dL (11.4-16.0); Lymphocytes # (A) 2.7 k/uL (1.0-4.8); Lymphocytes % (A) 43 %; MCH 28.1 pg (25.0-35.0); MCHC 31.6 g/dL (31.0-37.0); MCV 88.9 fL (80.0-100.0); Mean Platelet Volume 7.9; Monocytes # (A) 0.3 k/uL (0-1.0); Monocytes % (A) 4 %; Neutrophils # (A) 3.1 k/uL (1.3-7.7); Neutrophils % (A) 50 %; Platelet Count 308 k/uL (150-450); RBC 4.96 m/uL (3.80-5.40); RDW 13.4 % (11.5-15.5); WBC 6.3 k/uL (3.8-10.6)
[2023-08-11 13:29] LABS: ALT 26 U/L (4-34); AST 32 U/L (14-36); African American GFR (CKD) >90 (>60 ml/min/1.73 sqM); Albumin 4.4 g/dL (3.5-5.0); Alkaline Phosphatase 125 U/L (38-126); Anion Gap 9 mmol/L; Blood Urea Nitrogen 12 mg/dL (7-17); C Reactive Protein <0.5 mg/dL (<1.0); Calcium 9.3 mg/dL (8.4-10.2); Carbon Dioxide 23 mmol/L (22-30); Chloride 107 mmol/L (98-107); Glucose 145 mg/dL (74-99); Non-African American GFR(CKD) >90 (>60 ml/min/1.73 sqM); Potassium 4.1 mmol/L (3.5-5.1); Sodium 139 mmol/L (137-145); Total Bilirubin 0.4 mg/dL (0.2-1.3); Total Protein 7.2 g/dL (6.3-8.2)
[2023-08-11 15:08] VITALS: BP 150/86; PULSE 72; TEMP 98
[2023-08-11 23:55] LABS: Erythrocyte Sedimentation Rate 35 mm/Hr (0-30)
== END 2023-08-11 14:45 | disposition home or self-care (01) ==
LOC: EC 11:46
DX: G89.18 Other acute postprocedural pain (principal); M79.671 Pain in right foot; Z91.018 Allergy to other foods; Z91.09 Other allergy status, other than to drugs and biological substances; Z91.040 Latex allergy status; Z88.8 Allergy status to other drugs, medicaments and biological substances; Z88.1 Allergy status to other antibiotic agents; Z88.5 Allergy status to narcotic agent
CPT/HCPCS: 36415; 80053; 83605; 85025; 85652; 86140; 99283

== ENCOUNTER 2023-12-02 13:27 | Observation (INO) | payer MEDICARE, OTHER ==
--- NOTE | 2023-12-02 13:52 | ED ---
Chest Pain HPI - General Source: patient, RN notes reviewed Mode of arrival: ambulatory Limitations: no limitations <Duran Rodriguez - Last Filed: 12/02/23 13:51> - General Source: patient, RN notes reviewed <Maggie Vidales - Last Filed: 12/02/23 16:59> - General Chief Complaint: Chest Pain Stated Complaint: SOB,chest pain,L arm numbness Time Seen by Provider: 12/02/23 13:47 - History of Present Illness Initial Comments: QN -58-year-old female presents emergency room chief complaint chest pain. States she has some shortness of breath, left arm pain and numbness. Patient states that she does have a history of some asthma issues no significant cardiac history other than a valve issue. Patient states she felt short of breath pain is improving at this time. (Duran Rodriguez) 58-year-old female with history of diabetes mellitus, hypertension, and hyperlipidemia presenting to the ER with chief complaint of chest pain. States earlier today she began to feel short of breath. She tried to use her albuterol with no relief. She then began to experience left-sided chest pain and a squeezing sensation in her left bicep that she describes felt like a blood pressure cuff. She is also experiencing some numbness in her left arm. She states the symptoms lasted for several hours however have gradually resolved. She has never had these symptoms before. She does report that last weekend she was on a [place] and was feeling episodes of shortness of breath with exertion. Admits she has a "leaky valve", however denies other cardiac conditions. Denies blood thinners. (Maggie Vidales) - Related Data Home Medications Medication Instructions Recorded Confirmed Insulin Glargine,Hum.rec.anlog 15 unit SQ BID 12/15/20 07/13/23 [Lantus Solostar Pen] lisinopriL [Zestril] 5 mg PO HS 12/15/20 07/13/23 Cariprazine HCl [Vraylar] 1.5 mg PO HS 07/10/23 07/13/23 Clindamycin Topical Soln 1 applic TOPICAL DAILY 07/10/23 07/13/23 [Cleocin-T Topical Soln] Clobetasol Propionate [Temovate 1 applic TOPICAL BID 07/10/23 07/13/23 0.05% Cream] Evolocumab [Repatha Syringe] 140 mg SQ Q14D 07/10/23 07/13/23 Glucosamine Sulfate 1 cap PO DAILY 07/10/23 07/13/23 Ibuprofen 600 mg PO Q6H 07/10/23 07/13/23 Lidocaine 5% Patch [Lidoderm 5% 1 patch TOPICAL DAILY PRN 07/10/23 07/13/23 Patch] Multivitamins, Thera Liquid 1 dose PO DAILY 07/10/23 07/13/23 [Theragran Liquid (formulary)] Mhnkwwet-Qhfwyuqby-Btjzmlag 1 applic BOTH EYES HS 07/10/23 07/13/23 [Maxitrol Ophth Oint] Ujtimbuf-Tvizvtupd-Vknxhldd 1 drop BOTH EYES QAM 07/10/23 07/13/23 [Maxitrol Ophth Susp] Omeprazole 20 mg PO QAM 07/10/23 07/13/23 Previous Rx's Medication Instructions Recorded Metoclopramide [Reglan] 5 mg PO ACHS #10 tab 04/15/23 HYDROcodone/APAP 5-325MG [[place] 1 tab PO Q6HR PRN #28 tab 07/13/23 5-325] Gabapentin [Neurontin] 100 mg PO TID 7 Days #21 cap 07/21/23 Doxycycline [Vibramycin] 50 mg PO Q12HR #20 capsule 08/11/23 Allergies Allergy/AdvReac Type Severity Reaction Status Date / Time banana Allergy Unknown Verified 08/11/23 12:18 celery Allergy Anaphylaxis Verified 08/11/23 12:18 latex Allergy Anaphylaxis Verified 08/11/23 12:18 lavender (Lavandula Allergy Unknown Verified 12/02/23 13:44 angustifolia) saccharin Allergy lip/tongue Verified 08/11/23 12:18 swelling tramadol Allergy feels Verified 08/11/23 12:18 bruised/stiff in face tree nut Allergy Anaphylaxis Verified 08/11/23 12:18 adhesive AdvReac "BANDAIDS Verified 08/11/23 12:18 TAKE OFF SKIN" aspartame AdvReac Vomiting Verified 08/11/23 12:18 carbamazepine [From Tegretol] AdvReac feels as Verified 08/11/23 12:18 if her body was beat cephalexin [From Keflex] AdvReac yeast Verified 08/11/23 12:18 infection chicken derived [Chicken] AdvReac positive Verified 08/11/23 12:18 allergy testing glipizide AdvReac depression Verified 08/11/23 12:18 lurasidone [From Latuda] AdvReac Hallucinati Verified 08/11/23 12:18 ons metformin AdvReac depression Verified 08/11/23 12:18 paliperidone [From Invega] AdvReac Tired, Verified 08/11/23 12:18 cramping in jaw pioglitazone [From Actos] AdvReac gained 10# Verified 08/11/23 12:18 water weight repaglinide AdvReac Unknown Verified 08/11/23 12:18 sitagliptin [From Januvia] AdvReac pulsating Verified 08/11/23 12:18 facial pain Oluqskv-UXS-KjH Reductase AdvReac elev liver Verified 08/11/23 12:18 Inhibitor enzymes dust mites Allergy Unknown Uncoded 08/11/23 12:18 pitaschio Allergy Anaphylaxis Uncoded 08/11/23 12:18 raw celery Allergy Anaphylaxis Uncoded 08/11/23 12:18 Review of Systems ROS Other: All systems not noted in ROS Statement are negative. <Duran Rodriguez - Last Filed: 12/02/23 13:51> ROS Other: All systems not noted in ROS Statement are negative. <Maggie Vidales - Last Filed: 12/02/23 16:59> ROS Statement: Those systems with pertinent positive or pertinent negative responses have been documented in the HPI. EKG Findings - EKG Results: EKG: interpreted by ERMD (EKG reveals normal sinus rhythm with no ST changes. Ventricular rate 72 bpm, AL interval 153, QRS duration 88, QT/QTc 371/395) <Maggie Vidales - Last Filed: 12/02/23 16:59> Past Medical History Past Medical History: Blood Disorder, Cancer, Diabetes Mellitus, Eye Disorder, GERD/Reflux, Hyperlipidemia, Hypertension, Musculoskeletal Disorder, Seizure Disorder, Skin Disorder, Sleep Apnea/CPAP/BIPAP, Syncope Additional Past Medical History / Comment(s): HAS A SUSPICIOUS SPOT ON OUTER RIGHT ANKLE, WENT TO NAMED ACCOUNT EXECUTIVE WHO SAID IT LOOKED SUPSICIOUS FOR CANCER, SHE WILL REPORT FINDINGS TO DR. CEDILLO (SHE DID NOT BIOPSY, WILL LET DR. CEDILLO DECIDE IF HE WILL DO SURGERY). Hx severe anemia, sm leaky valve, hx blood clot Rt ovary, skin cancer, spinal stenosis, fatty liver. Neck pain, NT bilat arms. No CPAP. neurological dermatitis, Last seizure 2005, varicose veins. difficulty swallowing food. History of Any Multi-Drug Resistant Organisms: None Reported Past Surgical History: Back Surgery, Hysterectomy, Tubal Ligation Additional Past Surgical History / Comment(s): Lumbar discectomy 2012, lt foot removal of foriegn body, Laser varicose veins, Skin cancer exc scalp, laser surgery for glaucoma Past Anesthesia/Blood Transfusion Reactions: No Reported Reaction Additional Past Anesthesia/Blood Transfusion Reaction / Comment(s): Family has awakened in surgery - son, father, slow to wake up Past Psychological History: Anxiety, Depression Smoking Status: Never smoker Past Alcohol Use History: None Reported Past Drug Use History: None Reported - Past Family History Father Family Medical History: Cancer, CVA/TIA, Diabetes Mellitus, Hypertension, Thyroid Disorder Additional Family Medical History / Comment(s): Lymphoma, neuropathy, chronic fatigue syndrome Mother Family Medical History: Cancer, CVA/TIA, Diabetes Mellitus Additional Family Medical History / Comment(s): Cervical cancer. Sister(s) Family Medical History: Cancer Additional Family Medical History / Comment(s): breast cancer <Duran Rodriguez M - Last Filed: 12/02/23 13:51> General Exam Limitations: no limitations General appearance: alert, in no apparent distress <Duran Rodriguez M - Last Filed: 12/02/23 13:51> General appearance: alert, in no apparent distress Head exam: Present: atraumatic, normocephalic, normal inspection Eye exam: Present: normal appearance, PERRL, EOMI. Absent: scleral icterus, conjunctival injection, periorbital swelling ENT exam: Present: normal exam, mucous membranes moist Neck exam: Present: normal inspection. Absent: tenderness, meningismus, lymphadenopathy Respiratory exam: Present: normal lung sounds bilaterally. Absent: respiratory distress, wheezes, rales, rhonchi, stridor Cardiovascular Exam: Present: regular rate, normal rhythm, normal heart sounds. Absent: systolic murmur, diastolic murmur, rubs, gallop, clicks GI/Abdominal exam: Present: soft, normal bowel sounds. Absent: distended, tenderness, guarding, rebound, rigid Neurological exam: Present: alert, oriented X3 Psychiatric exam: Present: normal affect, normal mood Skin exam: Present: warm, dry, intact, normal color. Absent: rash <Maggie Vidales - Last Filed: 12/02/23 16:59> - General Exam Comments Initial Comments: Visual Physical Exam Vital signs reviewed General: Well-appearing, nontoxic, no acute distress. Head: Normocephalic, atraumatic Eyes: PERRLA, EOMI ENT: Airway patent Chest: Nonlabored breathing Skin: No visual rash, normal skin tone Neuro: Alert and oriented 3 Musculoskeletal: No gross abnormalities (Duran Rodriguez) Course Vital Signs 12/02/23 13:40 Temperature 97.8 F Pulse Rate 82 Respiratory 20 Rate Blood Pressure 132/84 O2 Sat by Pulse 99 Oximetry Chest Pain MDM <Duran Rodriguez - Last Filed: 12/02/23 13:51> <FlashMaggie - Last Filed: 12/02/23 16:59> - MDM I completed the quick note portion of this chart signed Duran Rodriguez PA-C (Duran Rodriguez) Was pt. sent in by a medical professional or institution ([facility] Christine, [employer] B[employer] OPERATOR, urgent care, hospital, or care home...) When possible be specific @ -No Did you speak to anyone other than the patient for history (EMS, parent, family, police, friend...)? What history was obtained from this source @ -No Did you review nursing and triage notes (agree or disagree)? Why? @ -I reviewed and agree with nursing and triage notes Were old charts reviewed (outside hosp., previous admission, EMS record, old EKG, old radiological studies, urgent care reports/EKG's, care home records)? Report findings @ -No old charts were reviewed Differential Diagnosis (chest pain, altered mental status, abdominal pain women, abdominal pain men, vaginal bleeding, weakness, fever, dyspnea, syncope, headache, dizziness, GI bleed, back pain, seizure, CVA, palpatations, mental health, musculoskeletal)? @ -Differential Chest Pain: Stable Angina, Unstable Angina, STEMI, NSTEMI Aortic Dissection, Pneumothorax, Musculoskeletal, Esophageal Spasm GERD, Cholecystitis, Pancreatitis, Zoster, this is not meant to be an all-inclusive list. EKG interpreted by me (3pts min.). @ -As above X-rays interpreted by me (1pt min.). @ -Chest x-ray reveals no acute process CT interpreted by me (1pt min.). @ -None done U/S interpreted by me (1pt. min.). @ -None done What testing was considered but not performed or refused? (CT, X-rays, U/S, l abs)? Why? @ -None What meds were considered but not given or refused? Why? @ -None Did you discuss the management of the patient with other professionals (professionals i.e. DrEmperatriz, PA, STRADDLE BUG OPERATOR, lab, RT, psych nurse, social work lecturer, family day care provider, teacher, activities officer, patient case coordinator)? Give summary @ -I spoke with Dr. Campos who accepts admission to observation at this time for ACS rule out with consultation to cardiology services Was smoking cessation discussed for >3mins.? @ -No Was critical care preformed (if so, how long)? @ -No Were there social determinants of health that impacted care today? How? (H omelessness, low income, unemployed, alcoholism, drug addiction, transportation, low edu. Level, literacy, decrease access to med. care, senior care, rehab)? @ -No Was there de-escalation of care discussed even if they declined (Discuss DNR or withdrawal of care, Hospice)? DNR status @ -No What co-morbidities impacted this encounter? (DM, HTN, Smoking, COPD, CAD, Cancer, CVA, ARF, Chemo, Hep., AIDS, mental health diagnosis, sleep apnea, morbid obesity)? @ -None Was patient admitted / discharged? Hospital course, mention meds given and route, prescriptions, significant lab abnormalities, going to OR and other pertinent info. @ -Patient was admitted. Patient was seen and evaluated for chest pain since this morning with shortness of breath and left arm tingling/squeezing. Vital signs are within normal limits. Upon examination, patient states symptoms are improving. No acute distress. Patient was given loading dose of aspirin. EKG reveals normal sinus rhythm with no ST changes. Chest x-ray reveals no acute process. Lab work including CBC, CMP, magnesium, troponin was unremarkable. I spoke with Dr. Campos who accepts admission to observation at this time for ACS rule out with consultation to cardiology services as symptoms appear cardiac in nature. Patient is agreeable to plan. Case was discussed with my ED attending Dr. Pena. Undiagnosed new problem with uncertain prognosis? @ -No Drug Therapy requiring intensive monitoring for toxicity (Heparin, Nitro, Insulin, Cardizem)? @ -No Were any procedures done? @ -No Diagnosis/symptom? @ -ACS rule out, chest pain Acute, or Chronic, or Acute on Chronic? @ -Acute Uncomplicated (without systemic symptoms) or Complicated (systemic symptoms)? @ -Uncomplicated Side effects of treatment? @ -No Exacerbation, Progression, or Severe Exacerbation? @ -No Poses a threat to life or bodily function? How? (Chest pain, [place], [place], pneumonia, PE, COPD, DKA, ARF, appy, cholecystitis, CVA, Diverticulitis, Homicidal, Suicidal, threat to staff... and all critical care pts) @ -Yes, chest pain (Maggie Vidales) Disposition <Duran Rodriguez - Last Filed: 12/02/23 13:51> Time of Disposition: 16:56 <Maggie Vidales - Last Filed: 12/02/23 16:59> Clinical Impression: Chest pain Disposition: ADMITTED IP TO THIS HOSP
--- NOTE | 2023-12-02 14:16 | XR ---
EXAMINATION TYPE: XR chest 2V DATE OF EXAM: 12/02/2023 2:07 PM CLINICAL INDICATION:Female, 58 years old with history of Chest Pain; [facility] COMPARISON: Chest radiographs from 05/23/2022 TECHNIQUE: XR chest 2V Frontal and lateral views of the chest. FINDINGS: Lungs/Pleura: There is no evidence of pleural effusion, focal consolidation, or pneumothorax. Pulmonary vascularity: Unremarkable. Heart/mediastinum: Cardiomediastinal silhouette is unremarkable. Musculoskeletal: No acute osseous pathology. IMPRESSION: No acute cardiopulmonary disease/process.
[2023-12-02 14:36] LABS: Basophils % (A) 1 %; Eosinophils # (A) 0.1 k/uL (0-0.7); Eosinophils % (A) 2 %; HCT 38.3 % (34.0-46.0); HGB 13.1 gm/dL (11.4-16.0); Lymphocytes % (A) 42 %; MCHC 34.3 g/dL (31.0-37.0); MCV 87.3 fL (80.0-100.0); Mean Platelet Volume 8.3; Monocytes # (A) 0.2 k/uL (0-1.0); Monocytes % (A) 4 %; Neutrophils # (A) 2.4 k/uL (1.3-7.7); Neutrophils % (A) 49 %; Platelet Count 302 k/uL (150-450); RBC 4.39 m/uL (3.80-5.40); RDW 13.7 % (11.5-15.5); WBC 4.8 k/uL (3.8-10.6)
[2023-12-02 14:44] LABS: INR 0.9 (<1.2); Partial Thromboplastin Time 23.5 sec (22.0-30.0); Prothrombin Time 9.9 sec (10.0-12.5)
[2023-12-02 14:52] LABS: ALT 19 U/L (4-34); AST 29 U/L (14-36); African American GFR (CKD) >90 (>60 ml/min/1.73 sqM); Albumin 4.2 g/dL (3.5-5.0); Alkaline Phosphatase 98 U/L (38-126); Anion Gap 9 mmol/L; Blood Urea Nitrogen 12 mg/dL (7-17); Calcium 9.2 mg/dL (8.4-10.2); Carbon Dioxide 19 mmol/L (22-30); Chloride 109 mmol/L (98-107); Glucose 202 mg/dL (74-99); Magnesium 1.8 mg/dL (1.6-2.3); Non-African American GFR(CKD) >90 (>60 ml/min/1.73 sqM); Potassium 3.9 mmol/L (3.5-5.1); Sodium 137 mmol/L (137-145); Total Bilirubin 0.6 mg/dL (0.2-1.3); Total Protein 6.6 g/dL (6.3-8.2)
[2023-12-02] MEDS ORDERED: ACETAMINOPHEN TAB 325 MG TAB PO PRN (16:31)
[2023-12-02] MEDS ORDERED: NALOXONE 0.4 MG/ML 1 ML VIAL IV PRN (16:31)
[2023-12-02] MEDS ORDERED: KETOROLAC 15 MG/ML 1 ML VIAL IVP PRN (16:31)
[2023-12-02] MEDS: ASPIRIN 81 MG PO STA (17:27)
[2023-12-02] MEDS ORDERED: ALBUTEROL HFA INHALER INHALATION PRN (18:28)
[2023-12-02] MEDS ORDERED: NITROGLYCERIN SL TABS 0.4 MG TAB SUBLINGUAL PRN (18:29)
--- NOTE | 2023-12-02 18:34 | P.HPIM ---
History of Present Illness H&P Date: 12/02/23 Chief Complaint: Chest pain 58-year-old woman with medical history of environmental asthma, hypertension, hyperlipidemia, diabetes presented for evaluation of chest pain. Patient says that she started to notice that she had some trouble catching her breath over the past several days. In the past, these episodes were felt to be a trigger of her asthma due to environmental allergens, and she was recently working in the garden. Initially, she thought this was the case again, however, her symptoms progressed to having significant arm and chest pain which felt bandlike and squeezing in nature and was associated with an inability to catch her breath. Given that these were new symptoms, she presented to the hospital for further evaluation. She denies fevers, chills, nausea, vomiting. She does report she had significant sweats associated with her chest pain. She denies palpitations, syncope. She denies lower extremity edema In the emergency room, patient was afebrile, 132/84, heart rate 82, 99% on room air. CBC was unremarkable. Basic metabolic panel showed CO2 of 19, chloride of 109, otherwise unremarkable. Glucose was 202. Troponin was less than 0.012. Coags were unremarkable. Liver function test were unremarkable. Chest x-ray demonstrated normal-sized heart, clear parenchyma bilaterally. All Systems reviewed and pertinent positives and negatives noted in HPI, all other symptoms are negative Gen: In NAD, non-toxic HEENT: normocephalic, atraumatic, hearing acuity is intant, mucous membranes moist CVS: perfusing all extremities well, no pitting edema, Respiratory: symmetric chest expansion, no accessory muscle use, GI: soft, NTTP, ND, : no suprapubic tenderness, no CVA tenderness MSK/Derm: no rashes, cyanosis Neuro: CN II-XII intact, no motor weakness, Psych: cooperative, euthymic mood, judgment and insight is intact Labs and imaging as above Assessment/plan: Chest pain History of asthma -Admit to observation with telemetry -Cardiology was consulted -Trend troponins -Echocardiogram -Risk factors: TSH, A1c, lipid panel -Albuterol as needed -Aspirin 81 mg daily, atorvastatin deferred due to allergy -Nitro as needed for chest pain Hypertension Hyperlipidemia Diabetes type 2 -Home medications reviewed and reconciled -Low-dose sliding scale insulin Patient is full code Past Medical History Past Medical History: Blood Disorder, Cancer, Diabetes Mellitus, Eye Disorder, GERD/Reflux, Hyperlipidemia, Hypertension, Musculoskeletal Disorder, Seizure Disorder, Skin Disorder, Sleep Apnea/CPAP/BIPAP, Syncope Additional Past Medical History / Comment(s): HAS A SUSPICIOUS SPOT ON OUTER RIGHT ANKLE, WENT TO MORTGAGE COUNSELOR WHO SAID IT LOOKED SUPSICIOUS FOR CANCER, SHE WILL REPORT FINDINGS TO DR. CEDILLO (SHE DID NOT BIOPSY, WILL LET DR. CEDILLO DECIDE IF HE WILL DO SURGERY). Hx severe anemia, sm leaky valve, hx blood clot Rt ovary, skin cancer, spinal stenosis, fatty liver. Neck pain, NT bilat arms. No CPAP. neurological dermatitis, Last seizure 2005, varicose veins. difficulty swallowing food. History of Any Multi-Drug Resistant Organisms: None Reported Past Surgical History: Back Surgery, Hysterectomy, Tubal Ligation Additional Past Surgical History / Comment(s): Lumbar discectomy 2012, lt foot removal of foriegn body, Laser varicose veins, Skin cancer exc scalp, laser s urgery for glaucoma Past Anesthesia/Blood Transfusion Reactions: No Reported Reaction Additional Past Anesthesia/Blood Transfusion Reaction / Comment(s): Family has awakened in surgery - son, father, slow to wake up Past Psychological History: Anxiety, Depression Smoking Status: Never smoker Past Alcohol Use History: None Reported Past Drug Use History: None Reported - Past Family History Father Family Medical History: Cancer, CVA/TIA, Diabetes Mellitus, Hypertension, Thyroid Disorder Additional Family Medical History / Comment(s): Lymphoma, neuropathy, chronic f atigue syndrome Mother Family Medical History: Cancer, CVA/TIA, Diabetes Mellitus Additional Family Medical History / Comment(s): Cervical cancer. Sister(s) Family Medical History: Cancer Additional Family Medical History / Comment(s): breast cancer Medications and Allergies Home Medications Medication Instructions Recorded Confirmed Type Insulin Glargine,Hum.rec.anlog 10 unit SQ DAILY 12/15/20 12/02/23 History [Lantus Solostar Pen] Clindamycin Topical Soln 1 applic TOPICAL DAILY PRN 07/10/23 12/02/23 History [Cleocin-T Topical Soln] Evolocumab [Repatha Syringe] 140 mg SQ Q14D 07/10/23 12/02/23 History Albuterol Sulfate [Albuterol 2 puff PO RT-Q4H PRN 12/02/23 12/02/23 History Sulfate Hfa] Insulin Glargine,Hum.rec.anlog 16 units SQ HS 12/02/23 12/02/23 History [Lantus Solostar Pen] Topiramate [Topamax] 25 mg PO BID 12/02/23 12/02/23 History lisinopriL [Zestril] 5 mg PO DAILY 12/02/23 12/02/23 History Allergies Allergy/AdvReac Type Severity Reaction Status Date / Time banana Allergy Unknown Verified 12/02/23 17:50 celery Allergy Anaphylaxis Verified 12/02/23 17:50 latex Allergy Anaphylaxis Verified 12/02/23 17:50 lavender (Lavandula Allergy Unknown Verified 12/02/23 17:50 angustifolia) saccharin Allergy lip/tongue Verified 12/02/23 17:50 swelling tramadol Allergy feels Verified 12/02/23 17:50 bruised/stiff in face tree nut Allergy Anaphylaxis Verified 12/02/23 17:50 adhesive AdvReac "BANDAIDS Verified 12/02/23 17:50 TAKE OFF SKIN" aspartame AdvReac Vomiting Verified 12/02/23 17:50 carbamazepine [From Tegretol] AdvReac feels as Verified 12/02/23 17:50 if her body was beat cephalexin [From Keflex] AdvReac yeast Verified 12/02/23 17:50 infection chicken derived [Chicken] AdvReac positive Verified 12/02/23 17:50 allergy testing glipizide AdvReac depression Verified 12/02/23 17:50 lurasidone [From Latuda] AdvReac Hallucinati Verified 12/02/23 17:50 ons metformin AdvReac depression Verified 12/02/23 17:50 paliperidone [From Invega] AdvReac Tired, Verified 12/02/23 17:50 cramping in jaw pioglitazone [From Actos] AdvReac gained 10# Verified 12/02/23 17:50 water weight repaglinide AdvReac Unknown Verified 12/02/23 17:50 sitagliptin [From Januvia] AdvReac pulsating Verified 12/02/23 17:50 facial pain Sbrqdqm-VJZ-TjP Reductase AdvReac elev liver Verified 12/02/23 17:50 Inhibitor enzymes dust mites Allergy Unknown Uncoded 12/02/23 17:50 pitaschio Allergy Anaphylaxis Uncoded 12/02/23 17:50 raw celery Allergy Anaphylaxis Uncoded 12/02/23 17:50 Physical Exam Osteopathic Statement: *. No significant issues noted on an osteopathic structural exam other than those noted in the History and Physical/Consult. Vitals: Vital Signs Temp Pulse Resp BP Pulse Ox 12/02/23 13:40 97.8 F 82 20 132/84 99 Intake and Output 12/02/23 12/02/23 12/02/23 06:59 14:59 22:59 Other: Weight 80.739 kg Results CBC & Chem 7: 12/02/23 13:55 12/02/23 13:55 Labs: Abnormal Lab Results - Last 24 Hours (Table) 12/02/23 12/02/23 Range/Units 13:55 13:55 PT 9.9 L (10.0-12.5) sec Chloride 109 H (98-107) mmol/L Carbon Dioxide 19 L (22-30) mmol/L Glucose 202 H (74-99) mg/dL
[2023-12-02] MEDS: TOPIRAMATE 25 MG TAB PO SCH (20:38)
[2023-12-02 20:39] LABS: Glucose,Whole Blood 133 mg/dL (70-110)
[2023-12-02] MEDS: INSULIN DETEMIR (LEVEMIR) 100 UNIT/ML SYR SQ SCH (20:39)
[2023-12-02 23:36] VITALS: RESP 16; TEMP 97.5
[2023-12-03 01:24] VITALS: BP 118/82; PULSE 57
[2023-12-03 06:50] LABS: Basophils % (A) 1 %; Eosinophils # (A) 0.1 k/uL (0-0.7); Eosinophils % (A) 2 %; HGB 13.5 gm/dL (11.4-16.0); Lymphocytes # (A) 2.7 k/uL (1.0-4.8); Lymphocytes % (A) 49 %; MCH 28.8 pg (25.0-35.0); MCHC 32.1 g/dL (31.0-37.0); MCV 89.9 fL (80.0-100.0); Mean Platelet Volume 7.7; Monocytes # (A) 0.3 k/uL (0-1.0); Monocytes % (A) 5 %; Neutrophils # (A) 2.3 k/uL (1.3-7.7); Neutrophils % (A) 40 %; Platelet Count 325 k/uL (150-450); RBC 4.68 m/uL (3.80-5.40); RDW 13.6 % (11.5-15.5); WBC 5.6 k/uL (3.8-10.6)
[2023-12-03 07:13] LABS: African American GFR (CKD) >90 (>60 ml/min/1.73 sqM); Anion Gap 5 mmol/L; Blood Urea Nitrogen 14 mg/dL (7-17); Calcium 9.3 mg/dL (8.4-10.2); Carbon Dioxide 23 mmol/L (22-30); Chloride 111 mmol/L (98-107); Glucose 108 mg/dL (74-99); Magnesium 2.1 mg/dL (1.6-2.3); Non-African American GFR(CKD) >90 (>60 ml/min/1.73 sqM); Potassium 3.9 mmol/L (3.5-5.1); Sodium 139 mmol/L (137-145)
[2023-12-03] MEDS ORDERED: INSULIN ASPART (NovoLOG) 100 UNIT/ML VIAL SQ SCH (07:30)
[2023-12-03] MEDS ORDERED: INSULIN DETEMIR (LEVEMIR) 100 UNIT/ML SYR SQ SCH (09:00)
[2023-12-03] MEDS ORDERED: lisinopriL 5 MG TAB PO SCH (09:00)
[2023-12-03] MEDS ORDERED: ASPIRIN 81 MG PO SCH (09:00)
[2023-12-03 09:10] LABS: Glucose,Whole Blood 128 mg/dL (70-110)
[2023-12-03 13:16] LABS: Glucose,Whole Blood 117 mg/dL (70-110)
[2023-12-03] MEDS ORDERED: lisinopriL 5 MG TAB ONE (13:17)
[2023-12-03] MEDS ORDERED: TOPIRAMATE 25 MG TAB ONE (13:17)
[2023-12-03] MEDS ORDERED: ASPIRIN 81 MG ONE (13:17)
[2023-12-03] MEDS ORDERED: diphenhydrAMINE 50 MG/ML 1 ML VIAL ONE ×2 (21:48)
== END 2023-12-03 16:49 | disposition home or self-care (01) ==
LOC: EC 13:27 → 6NMEDSUR 16:16
PROVIDERS: ADMIT Internal Medicine; ATTEND Internal Medicine
CPT/HCPCS: 36415; 71046; 80048; 80053; 80061; 83036; 83735; 84443; 84484; 85025; 85379; 85610; 85730; 93005; 93306; 93351; 99285

== ENCOUNTER 2024-03-09 18:16 | Observation (INO) | payer MEDICARE, OTHER ==
[2024-03-09 18:22] LABS: Glucose,Whole Blood 74 mg/dL (70-110)
[2024-03-09 18:42] LABS: Basophils # (A) 0.1 k/uL (0-0.2); Basophils % (A) 0 %; Eosinophils # (A) 0.1 k/uL (0-0.7); Eosinophils % (A) 1 %; HCT 39.7 % (34.0-46.0); HGB 12.8 gm/dL (11.4-16.0); Lymphocytes # (A) 4.4 k/uL (1.0-4.8); Lymphocytes % (A) 40 %; MCH 28.1 pg (25.0-35.0); MCHC 32.3 g/dL (31.0-37.0); MCV 86.9 fL (80.0-100.0); Monocytes # (A) 0.5 k/uL (0-1.0); Monocytes % (A) 4 %; Neutrophils # (A) 5.8 k/uL (1.3-7.7); Neutrophils % (A) 53 %; Platelet Count 395 k/uL (150-450); RBC 4.56 m/uL (3.80-5.40); RDW 14.1 % (11.5-15.5)
[2024-03-09] MEDS: DEXTROSE 50% SYRINGE 50 ML IVP STA ×2 (18:55→20:13)
--- NOTE | 2024-03-09 18:58 | ED ---
General Adult HPI - General Source: patient Mode of arrival: wheelchair Limitations: no limitations <Esteban Enrique - Last Filed: 03/09/24 20:36> <Fortino Santizo - Last Filed: 03/13/24 06:23> - General Chief complaint: Recheck/Abnormal Lab/Rx Stated complaint: low blood sugar Time Seen by Provider: 03/09/24 18:22 - History of Present Illness Initial comments: Dictation was produced using [employer] dictation software. please excuse any grammatical, word or spelling errors. Chief Complaint: 59-year-old insulin-dependent diabetic female presents to the ER for hypoglycemia History of Present Illness: Patient is a 59-year-old female she is new to insulin pump. For the last 3 days she has been trying to connect her insulin pump. Patient states that since trying to establish her insulin pump her blood sugars has been significantly low. Patient denies any other symptoms. The ROS documented in this emergency department record has been reviewed and confirmed by me. Those systems with pertinent positive or negative responses have been documented in the HPI. All other systems are other negative and/or n oncontributory. (Esteban Enrique) - Related Data Home Medications Medication Instructions Recorded Confirmed Evolocumab [Repatha Syringe] 140 mg SQ Q14D 07/10/23 03/10/24 Albuterol Sulfate [Albuterol 2 puff PO RT-Q6H PRN 12/02/23 03/10/24 Sulfate Hfa] Topiramate [Topamax] 50 mg PO DAILY 12/02/23 03/10/24 Fluticasone Nasal [place] [Flonase 1 spray EA NOSTRIL DAILY PRN 03/10/24 03/10/24 Nasal [place]] Glucagon [Gvoke Pfs 1-Pack Syringe] 1 mg SQ DIRECTED PRN 03/10/24 03/10/24 lisinopriL [Zestril] 5 mg PO DAILY 03/10/24 03/10/24 Previous Rx's Medication Instructions Recorded Insulin Glargine,Hum.rec.anlog See Rx Instructions .ROUTE 03/10/24 [Lantus Solostar Pen] .COMPLEX 7 Days each Allergies Allergy/AdvReac Type Severity Reaction Status Date / Time banana Allergy Unknown Verified 03/10/24 07:45 celery Allergy Anaphylaxis Verified 03/10/24 07:45 latex Allergy Anaphylaxis Verified 03/10/24 07:45 lavender (Lavandula Allergy Unknown Verified 03/10/24 07:45 angustifolia) saccharin Allergy lip/tongue Verified 03/10/24 07:45 swelling tramadol Allergy feels Verified 03/10/24 07:45 bruised/stiff in face tree nut Allergy Anaphylaxis Verified 03/10/24 07:45 adhesive AdvReac "BANDAIDS Verified 03/10/24 07:45 TAKE OFF SKIN" aspartame AdvReac Vomiting Verified 03/10/24 07:45 carbamazepine [From Tegretol] AdvReac feels as Verified 03/10/24 07:45 if her body was beat cephalexin [From Keflex] AdvReac yeast Verified 03/10/24 07:45 infection chicken derived [Chicken] AdvReac positive Verified 03/10/24 07:45 allergy testing glipizide AdvReac depression Verified 03/10/24 07:45 lurasidone [From Latuda] AdvReac Hallucinati Verified 03/10/24 07:45 ons metformin AdvReac depression Verified 03/10/24 07:45 paliperidone [From Invega] AdvReac Tired, Verified 03/10/24 07:45 cramping in jaw pioglitazone [From Actos] AdvReac gained 10# Verified 03/10/24 07:45 water weight repaglinide AdvReac Unknown Verified 03/10/24 07:45 sitagliptin [From Januvia] AdvReac pulsating Verified 03/10/24 07:45 facial pain [id number] Reductase AdvReac elev liver Verified 03/10/24 07:45 Inhibitor enzymes dust mites Allergy Unknown Uncoded 03/10/24 07:45 pitaschio Allergy Anaphylaxis Uncoded 03/10/24 07:45 raw celery Allergy Anaphylaxis Uncoded 03/10/24 07:45 Review of Systems ROS Other: All systems not noted in ROS Statement are negative. <Esteban Enrique - Last Filed: 03/09/24 20:36> ROS Other: All systems not noted in ROS Statement are negative. <Fortino Santizo - Last Filed: 03/13/24 06:23> ROS Statement: Those systems with pertinent positive or pertinent negative responses have been documented in the HPI. Past Medical History Past Medical History: Blood Disorder, Cancer, Diabetes Mellitus, Eye Disorder, GERD/Reflux, Hyperlipidemia, Hypertension, Musculoskeletal Disorder, Seizure Disorder, Skin Disorder, Sleep Apnea/CPAP/BIPAP, Syncope Additional Past Medical History / Comment(s): HAS A SUSPICIOUS SPOT ON OUTER RIGHT ANKLE, WENT TO [employer] [facility]PART[facility] WHO SAID IT LOOKED SUPSICIOUS FOR CANCER, SHE WILL REPORT FINDINGS TO DR. CEDILLO (SHE DID NOT BIOPSY, WILL LET DR. CEDILLO DECIDE IF HE WILL DO SURGERY). Hx severe anemia, sm leaky valve, hx blood clot Rt ovary, skin cancer, spinal stenosis, fatty liver. Neck pain, NT bilat arms. No CPAP. neurological dermatitis, Last seizure 2005, varicose veins. difficulty swallowing food. History of Any Multi-Drug Resistant Organisms: None Reported Past Surgical History: Back Surgery, Hysterectomy, Orthopedic Surgery, Tubal Ligation Additional Past Surgical History / Comment(s): Lumbar discectomy 2012, lt foot removal of foriegn body, Laser varicose veins, Skin cancer exc scalp, laser surgery for glaucoma, tendon and ligament repair right foot Past Anesthesia/Blood Transfusion Reactions: No Reported Reaction Additional Past Anesthesia/Blood Transfusion Reaction / Comment(s): Family has awakened in surgery - son, father, slow to wake up Past Psychological History: Anxiety, Depression Smoking Status: Never smoker Past Alcohol Use History: None Reported Past Drug Use History: None Reported - Past Family History Father Family Medical History: Cancer, CVA/TIA, Diabetes Mellitus, Hypertension, Thyroid Disorder Additional Family Medical History / Comment(s): Lymphoma, neuropathy, chronic fatigue syndrome Mother Family Medical History: Cancer, CVA/TIA, Diabetes Mellitus Additional Family Medical History / Comment(s): Cervical cancer. Sister(s) Family Medical History: Cancer Additional Family Medical History / Comment(s): breast cancer <Esteban Enrique - Last Filed: 03/09/24 20:36> General Exam Limitations: no limitations <Esteban Enrique - Last Filed: 03/09/24 20:36> - General Exam Comments Initial Comments: PHYSICAL EXAM: General Impression: Alert and oriented x3, not in acute distress HEENT: Normocephalic atraumatic, extra-ocular movements intact, pupils equal and reactive to light bilaterally, mucous membranes moist. Cardiovascular: Heart regular rate and rhythm Chest: Able to complete full sentences, no retractions, no tachypnea Abdomen: abdomen soft, non-tender, non-distended, no organomegaly Musculoskeletal: Pulses present and equal in all extremities, no peripheral edema Motor: no focal deficits noted Neurological: CN II-XII grossly intact, no focal motor or sensory deficits noted Skin: Intact with no visualized rashes Psych: Normal affect and mood (Esteban Enrique) Course Vital Signs 03/09/24 03/09/24 03/09/24 18:20 20:50 23:52 Temperature 97.3 F L Pulse Rate 102 H 96 73 Respiratory 22 18 18 Rate Blood Pressure 150/79 138/84 134/89 O2 Sat by Pulse 99 98 98 Oximetry 03/10/24 03/10/24 03/10/24 02:31 05:16 06:22 Temperature Pulse Rate 64 83 67 Respiratory 18 18 16 Rate Blood Pressure 123/80 132/76 114/77 O2 Sat by Pulse 95 97 96 Oximetry 03/10/24 07:50 Temperature 97.4 F L Pulse Rate 75 Respiratory 18 Rate Blood Pressure 136/101 O2 Sat by Pulse 97 Oximetry Medical Decision Making - Lab Data Result diagrams: 03/09/24 18:32 03/09/24 18:32 <Esteban Enrique - Last Filed: 03/09/24 20:36> - Lab Data Result diagrams: 03/09/24 18:32 03/10/24 06:21 <Fortino Santizo - Last Filed: 03/13/24 06:23> - Medical Decision Making Was pt. sent in by a medical professional or institution (, PA, PLIER WORKER, urgent care, hospital, or retirement...) When possible be specific @ -No Did you speak to anyone other than the patient for history (EMS, parent, family, police, friend...)? What history was obtained from this source @ -No Did you review nursing and triage notes (agree or disagree)? Why? @ -I reviewed and agree with nursing and triage notes Were old charts reviewed (outside hosp., previous admission, EMS record, old EKG, old radiological studies, urgent care reports/EKG's, retirement records)? Report findings @ -No old charts were reviewed Differential Diagnosis (chest pain, altered mental status, abdominal pain women, abdominal pain men, vaginal bleeding, musculoskeletal, weakness, fever, dyspnea, syncope, headache, dizziness, GI bleed, back pain, seizure, CVA, palpatations, mental health)? @ -Differential Dizziness: Benign paroxysmal positional Vertigo, Meniere's disease, otitis media, acoustic neuroma, vertebrobasilar insufficiency, cerebellar stroke, encephalitis, hypo volemic, arrhythmia, coronary artery syndrome, anemia, this is not meant to be an all-inclusive list EKG interpreted by me (3pts min.). @ -None done X-rays interpreted by me (1pt min.). @ -None done CT interpreted by me (1pt min.). @ -None done U/S interpreted by me (1pt. min.). @ -None done What testing was considered but not performed or refused? (CT, X-rays, U/S, labs)? Why? @ -None What meds were considered but not given or refused? Why? @ -None Was smoking cessation discussed for >3mins.? @ -No Were there social determinants of health that impacted care today? How? (Homelessness, low income, unemployed, alcoholism, drug addiction, transportation, low edu. Level, literacy, decrease access to med. care, long-term, rehab)? @ -No Was there de-escalation of care discussed even if they declined (Discuss DNR or withdrawal of care, Hospice)? DNR status @ -No What co-morbidities impacted this encounter? (DM, HTN, Smoking, COPD, CAD, Cancer, CVA, ARF, Chemo, Hep., AIDS, mental health diagnosis, sleep apnea, morbid obesity)? @ -Insulin-dependent diabetes Was patient admitted / discharged? Hospital course, mention meds given and route, prescriptions, significant lab abnormalities, going to OR and other pertinent info. @ -89-year-old female presents to the ER for hypoglycemia after trying to troubleshoot her insulin pump. Vital signs upon arrival shows heart rate of 102. Laboratory evaluation obtained. Initial blood glucose 74. Patient states she has been eating and drinking glucose at home. Patient has slight hypokalemia with a potassium of 3.1. Patient given dextrose after 1 glucose level was in the 60s. She increased to 180 and began to decrease again back down to 64. Patient given second dextrose injection. patient care signed out to Dr. Santizo at 9pm (Esteban Enrique) The patient continues to have blood sugars that are low normal and have symptoms. Case discussed with hospitalist physician and patient will be admit jose to observation (Fortino Santizo) - Lab Data Lab Results 03/09/24 03/09/24 03/09/24 Range/Units 18:21 18:32 18:32 WBC 11.0 H (3.8-10.6) k/uL RBC 4.56 (3.80-5.40) m/uL Hgb 12.8 (11.4-16.0) gm/dL Hct 39.7 (34.0-46.0) % MCV 86.9 (80.0-100.0) fL MCH 28.1 (25.0-35.0) pg MCHC 32.3 (31.0-37.0) g/dL RDW 14.1 (11.5-15.5) % Plt Count 395 (150-450) k/uL MPV 8.0 Neutrophils % 53 % Lymphocytes % 40 % Monocytes % 4 % Eosinophils % 1 % Basophils % 0 % Neutrophils # 5.8 (1.3-7.7) k/uL Lymphocytes # 4.4 (1.0-4.8) k/uL Monocytes # 0.5 (0-1.0) k/uL Eosinophils # 0.1 (0-0.7) k/uL Basophils # 0.1 (0-0.2) k/uL Sodium 139 (137-145) mmol/L Potassium 3.1 L (3.5-5.1) mmol/L Chloride 109 H (98-107) mmol/L Carbon Dioxide 20 L (22-30) mmol/L Anion Gap 10 mmol/L BUN 19 H (7-17) mg/dL Creatinine 0.76 (0.52-1.04) mg/dL Est GFR (CKD-EPI)AfAm >90 (>60 ml/min/1.73 sqM) Est GFR (CKD-EPI)NonAf 88 (>60 ml/min/1.73 sqM) Glucose 77 (74-99) mg/dL POC Glucose (mg/dL) 74 (70-110) mg/dL POC Glu [employer] ID Saeid Narayani Calcium 9.6 (8.4-10.2) mg/dL 03/09/24 03/09/24 03/09/24 Range/Units 19:18 20:01 20:10 WBC (3.8-10.6) k/uL RBC (3.80-5.40) m/uL Hgb (11.4-16.0) gm/dL Hct (34.0-46.0) % MCV (80.0-100.0) fL MCH (25.0-35.0) pg MCHC (31.0-37.0) g/dL RDW (11.5-15.5) % Plt Count (150-450) k/uL MPV Neutrophils % % Lymphocytes % % Monocytes % % Eosinophils % % Basophils % % Neutrophils # (1.3-7.7) k/uL Lymphocytes # (1.0-4.8) k/uL Monocytes # (0-1.0) k/uL Eosinophils # (0-0.7) k/uL Basophils # (0-0.2) k/uL Sodium (137-145) mmol/L Potassium (3.5-5.1) mmol/L Chloride (98-107) mmol/L Carbon Dioxide (22-30) mmol/L Anion Gap mmol/L BUN (7-17) mg/dL Creatinine (0.52-1.04) mg/dL Est GFR (CKD-EPI)AfAm (>60 ml/min/1.73 sqM) Est GFR (CKD-EPI)NonAf (>60 ml/min/1.73 sqM) Glucose (74-99) mg/dL POC Glucose (mg/dL) 180 H 104 64 L (70-110) mg/dL POC Glu Ware[employer]man [place] Calcium (8.4-10.2) mg/dL 03/09/24 03/09/24 03/09/24 Range/Units 20:37 21:10 22:30 WBC (3.8-10.6) k/uL RBC (3.80-5.40) m/uL Hgb (11.4-16.0) gm/dL Hct (34.0-46.0) % MCV (80.0-100.0) fL MCH (25.0-35.0) pg MCHC (31.0-37.0) g/dL RDW (11.5-15.5) % Plt Count (150-450) k/uL MPV Neutrophils % % Lymphocytes % % Monocytes % % Eosinophils % % Basophils % % Neutrophils # (1.3-7.7) k/uL Lymphocytes # (1.0-4.8) k/uL Monocytes # (0-1.0) k/uL Eosinophils # (0-0.7) k/uL Basophils # (0-0.2) k/uL Sodium (137-145) mmol/L Potassium (3.5-5.1) mmol/L Chloride (98-107) mmol/L Carbon Dioxide (22-30) mmol/L Anion Gap mmol/L BUN (7-17) mg/dL Creatinine (0.52-1.04) mg/dL Est GFR (CKD-EPI)AfAm (>60 ml/min/1.73 sqM) Est GFR (CKD-EPI)NonAf (>60 ml/min/1.73 sqM) Glucose (74-99) mg/dL POC Glucose (mg/dL) 174 H 128 H 81 (70-110) mg/dL POC Glu [employer] [place] Calcium (8.4-10.2) mg/dL 03/09/24 Range/Units 22:48 WBC (3.8-10.6) k/uL RBC (3.80-5.40) m/uL Hgb (11.4-16.0) gm/dL Hct (34.0-46.0) % MCV (80.0-100.0) fL MCH (25.0-35.0) pg MCHC (31.0-37.0) g/dL RDW (11.5-15.5) % Plt Count (150-450) k/uL MPV Neutrophils % % Lymphocytes % % Monocytes % % Eosinophils % % Basophils % % Neutrophils # (1.3-7.7) k/uL Lymphocytes # (1.0-4.8) k/uL Monocytes # (0-1.0) k/uL Eosinophils # (0-0.7) k/uL Basophils # (0-0.2) k/uL Sodium (137-145) mmol/L Potassium (3.5-5.1) mmol/L Chloride (98-107) mmol/L Carbon Dioxide (22-30) mmol/L Anion Gap mmol/L BUN (7-17) mg/dL Creatinine (0.52-1.04) mg/dL Est GFR (CKD-EPI)AfAm (>60 ml/min/1.73 sqM) Est GFR (CKD-EPI)NonAf (>60 ml/min/1.73 sqM) Glucose (74-99) mg/dL POC Glucose (mg/dL) 69 L (70-110) mg/dL POC Glu Warehouse Foreman ID [place] Calcium (8.4-10.2) mg/dL Disposition <Esteban Enrique - Last Filed: 03/09/24 20:36> Is patient prescribed a controlled substance at d/c from ED?: No <Fortino Santizo - Last Filed: 03/13/24 06:23> Clinical Impression: Hypoglycemia Disposition: ADMITTED IP TO THIS HOSP Condition: Good
[2024-03-09 19:00] LABS: African American GFR (CKD) >90 (>60 ml/min/1.73 sqM); Anion Gap 10 mmol/L; Blood Urea Nitrogen 19 mg/dL (7-17); Calcium 9.6 mg/dL (8.4-10.2); Carbon Dioxide 20 mmol/L (22-30); Chloride 109 mmol/L (98-107); Glucose 77 mg/dL (74-99); Non-African American GFR(CKD) 88 (>60 ml/min/1.73 sqM); Potassium 3.1 mmol/L (3.5-5.1); Sodium 139 mmol/L (137-145)
[2024-03-09] MEDS: SODIUM CHLORIDE 0.9% 1,000 ML IV STA (19:12)
[2024-03-09 19:20] LABS: Glucose,Whole Blood 180 mg/dL (70-110)
[2024-03-09 20:02] LABS: Glucose,Whole Blood 104 mg/dL (70-110)
[2024-03-09 20:11] LABS: Glucose,Whole Blood 64 mg/dL (70-110)
[2024-03-09] MEDS: POTASSIUM CHLORIDE ER 20 MEQ TAB.ER PO STA (20:26)
[2024-03-09] MEDS: MAG HYDROX/AL HYDROX/SIMETH 30 ML, HYOSCYAMINE ELIXIR 10 ML, LIDOCAINE VISCOUS 2% 10 ML PO STA (20:26)
[2024-03-09 20:38] LABS: Glucose,Whole Blood 174 mg/dL (70-110)
[2024-03-09 21:11] LABS: Glucose,Whole Blood 128 mg/dL (70-110)
[2024-03-09 22:31] LABS: Glucose,Whole Blood 81 mg/dL (70-110)
[2024-03-09 22:49] LABS: Glucose,Whole Blood 69 mg/dL (70-110)
[2024-03-09] MEDS ORDERED: NALOXONE 0.4 MG/ML 1 ML VIAL IV PRN (22:58)
[2024-03-09] MEDS: DEXTROSE 10% IN WATER 1,000 ML with SODIUM CHLORIDE 4MEQ/ML VIAL 153.8 MEQ IV SCH (23:14)
[2024-03-10] MEDS ORDERED: DEXTROSE 50% SYRINGE 50 ML IVP PRN ×2 (01:06)
--- NOTE | 2024-03-10 01:13 | P.HPIM ---
History of Present Illness H&P Date: 03/09/24 Chief Complaint: "I was going down. I needed sugar" Angeles is a 59 year-old woman with diabetes for 15 years, currently using an insulin pump for management. She reported a recent episode of hypoglycemia while out shopping with her mother, who is visually impaired, and her grandson. After consuming a large amount of sugary foods to counteract the low blood sugar, she was able to stabilize her glucose levels at 102 before arriving to the hospital. Angeles mentioned it was her first time using the insulin pump, which she started four to five days prior to the visit. She expressed concerns about the pump possibly being set incorrectly, as her blood sugar fluctuated significantly, plummeting despite interventions to raise it. She also reported a recent tooth extraction approximately two weeks ago, which was complicated by infection affecting her sinus cavity. Angeles denied any recent symptoms of fever, chest pain, nausea, or significant illness. She acknowledges the need for carrying emergency sugary snacks going forward. Status post tooth extraction approximately two weeks ago, which was complicated due to an infection in the sinus cavity. Medical history includes diabetes mellitus for 15 years, sleep apnea, high blood pressure, high cholesterol, and a transient ischemic attack (TIA) in the past. Recent tests indicated no heart attack after she experienced symptoms a month ago. No recent lab values provided during this encounter. Review of systems General - no acute distress observed. Endocrine - reports fluctuating blood sugar levels. Cardiovascular - denies chest pain but notes history of TIA. Pulmonary - denies shortness of breath. Gastrointestinal - denies nausea or vomiting. Neurological - denies confusion or seizures. Other systems not directly examined are not specified. On physical exam Constitutional: No acute distress, conversant, pleasant Eyes: Anicteric sclerae, moist conjunctiva, Pupils equal round reactive to light ENMT: NC/AT Oropharynx clear, no erythema, or exudates Neck: Supple, no masses, or JVD No carotid bruits No thyromegaly Lungs: Clear to auscultation Clear to percussion Normal respiratory effort, no accessory muscle use Cardiovascular: Heart regular in rate and rhythm, No murmurs, gallops, or rubs No peripheral edema Abdominal: Soft Nontender, no guarding, rebound or rigidity Abdomen moving with respiration Normoactive bowel sounds Extremities: No digital cyanosis No clubbing Pedal pulses intact and symmetrical Radial pulses intact and symmetrical No calf tenderness Psychiatric: Alert and oriented to person, place and time Appropriate affect fair judgement Neuro Muscles Strength 5/5 in all 4 extremities Sensation to light touch grossly present throughout Cranial nerves II-XII grossly intact Past Medical History Past Medical History: Blood Disorder, Cancer, Diabetes Mellitus, Eye Disorder, GERD/Reflux, Hyperlipidemia, Hypertension, Musculoskeletal Disorder, Seizure Disorder, Skin Disorder, Sleep Apnea/CPAP/BIPAP, Syncope Additional Past Medical History / Comment(s): HAS A SUSPICIOUS SPOT ON OUTER RIGHT ANKLE, WENT TO [employer] INST[employer] WHO SAID IT LOOKED SUPSICIOUS FOR CANCER, SHE WILL REPORT FINDINGS TO DR. CEDILLO (SHE DID NOT BIOPSY, WILL LET DR. CEDILLO DECIDE IF HE WILL DO SURGERY). Hx severe anemia, sm leaky valve, hx blood clot Rt ovary, skin cancer, spinal stenosis, fatty liver. Neck pain, NT bilat arms. No CPAP. neurological dermatitis, Last seizure 2005, varicose veins. difficulty swallowing food. History of Any Multi-Drug Resistant Organisms: None Reported Past Surgical History: Back Surgery, Hysterectomy, Orthopedic Surgery, Tubal Ligation Additional Past Surgical History / Comment(s): Lumbar discectomy 2012, lt foot removal of foriegn body, Laser varicose veins, Skin cancer exc scalp, laser surgery for glaucoma, tendon and ligament repair right foot Past Anesthesia/Blood Transfusion Reactions: No Reported Reaction Additional Past Anesthesia/Blood Transfusion Reaction / Comment(s): Family has awakened in surgery - son, father, slow to wake up Past Psychological History: Anxiety, Depression Smoking Status: Never smoker Past Alcohol Use History: None Reported Past Drug Use History: None Reported - Past Family History Father Family Medical History: Cancer, CVA/TIA, Diabetes Mellitus, Hypertension, Thyroid Disorder Additional Family Medical History / Comment(s): Lymphoma, neuropathy, chronic fatigue syndrome Mother Family Medical History: Cancer, CVA/TIA, Diabetes Mellitus Additional Family Medical History / Comment(s): Cervical cancer. Sister(s) Family Medical History: Cancer Additional Family Medical History / Comment(s): breast cancer Medications and Allergies Home Medications Medication Instructions Recorded Confirmed Type Insulin Glargine,Hum.rec.anlog 10 unit SQ DAILY 12/15/20 12/02/23 History [Lantus Solostar Pen] Clindamycin Topical Soln 1 applic TOPICAL DAILY PRN 07/10/23 12/02/23 History [Cleocin-T Topical Soln] Evolocumab [Repatha Syringe] 140 mg SQ Q14D 07/10/23 12/02/23 History Albuterol Sulfate [Albuterol 2 puff PO RT-Q4H PRN 12/02/23 12/02/23 History Sulfate Hfa] Insulin Glargine,Hum.rec.anlog 16 units SQ HS 12/02/23 12/02/23 History [Lantus Solostar Pen] Topiramate [Topamax] 25 mg PO BID 12/02/23 12/02/23 History lisinopriL [Zestril] 5 mg PO DAILY 12/02/23 12/02/23 History Allergies Allergy/AdvReac Type Severity Reaction Status Date / Time banana Allergy Unknown Verified 03/09/24 18:20 celery Allergy Anaphylaxis Verified 03/09/24 18:20 latex Allergy Anaphylaxis Verified 03/09/24 18:20 lavender (Lavandula Allergy Unknown Verified 03/09/24 18:20 angustifolia) saccharin Allergy lip/tongue Verified 03/09/24 18:20 swelling tramadol Allergy feels Verified 03/09/24 18:20 bruised/stiff in face tree nut Allergy Anaphylaxis Verified 03/09/24 18:20 adhesive AdvReac "BANDAIDS Verified 03/09/24 18:20 TAKE OFF SKIN" aspartame AdvReac Vomiting Verified 03/09/24 18:20 carbamazepine [From Tegretol] AdvReac feels as Verified 03/09/24 18:20 if her body was beat cephalexin [From Keflex] AdvReac yeast Verified 03/09/24 18:20 infection chicken derived [Chicken] AdvReac positive Verified 03/09/24 18:20 allergy testing glipizide AdvReac depression Verified 03/09/24 18:20 lurasidone [From Latuda] AdvReac Hallucinati Verified 03/09/24 18:20 ons metformin AdvReac depression Verified 03/09/24 18:20 paliperidone [From Invega] AdvReac Tired, Verified 03/09/24 18:20 cramping in jaw pioglitazone [From Actos] AdvReac gained 10# Verified 03/09/24 18:20 water weight repaglinide AdvReac Unknown Verified 03/09/24 18:20 sitagliptin [[facility]] AdvReac pulsating Verified 03/09/24 18:20 facial pain Ogzybok-AKK-BuD Reductase AdvReac elev liver Verified 03/09/24 18:20 Inhibitor enzymes dust mites Allergy Unknown Uncoded 03/09/24 18:20 pitaschio Allergy Anaphylaxis Uncoded 03/09/24 18:20 raw celery Allergy Anaphylaxis Uncoded 03/09/24 18:20 Physical Exam Vitals: Vital Signs Temp Pulse Resp BP Pulse Ox 03/09/24 23:52 73 18 134/89 98 03/09/24 20:50 96 18 138/84 98 03/09/24 18:20 97.3 F L 102 H 22 150/79 99 Intake and Output 03/09/24 03/09/24 03/10/24 14:59 22:59 06:59 Other: Weight 77.111 kg Results CBC & Chem 7: 03/09/24 18:32 03/09/24 18:32 Labs: Abnormal Lab Results - Last 24 Hours (Table) 03/09/24 03/09/24 03/09/24 Range/Units 18:32 18:32 19:18 WBC 11.0 H (3.8-10.6) k/uL Potassium 3.1 L (3.5-5.1) mmol/L Chloride 109 H (98-107) mmol/L Carbon Dioxide 20 L (22-30) mmol/L BUN 19 H (7-17) mg/dL POC Glucose (mg/dL) 180 H (70-110) mg/dL 03/09/24 03/09/24 03/09/24 Range/Units 20:10 20:37 21:10 WBC (3.8-10.6) k/uL Potassium (3.5-5.1) mmol/L Chloride (98-107) mmol/L Carbon Dioxide (22-30) mmol/L BUN (7-17) mg/dL POC Glucose (mg/dL) 64 L 174 H 128 H (70-110) mg/dL 03/09/24 Range/Units 22:48 WBC (3.8-10.6) k/uL Potassium (3.5-5.1) mmol/L Chloride (98-107) mmol/L Carbon Dioxide (22-30) mmol/L BUN (7-17) mg/dL POC Glucose (mg/dL) 69 L (70-110) mg/dL Assessment and Plan Assessment: 59-year-old female with diabetes mellitus recently started on insulin pump about 4 days ago presented with hypoglycemia discussed case with ED doctor and accepted the admission for persistent hypoglycemia admitted under observation with anticipated length of stay less than 2 midnights Persistent hypoglycemia Discontinue insulin pump Continues to be hypoglycemic despite D50 amps pressures Continue with D10 at 120 cc/h at this time continue to monitor blood sugar every hour Once blood sugar stabilizes we will discontinue the D10 drip Insulin sliding scale Fall precautions Hypertension controlled Continue with lisinopril Mild hypokalemia Potassium 3.1 Replace orally follow-up levels Check magnesium Renal function unremarkable sodium 139 BUN 19 creatinine 0.7 White count 11 hemoglobin 12.8 unremarkable Full code DVT prophylaxis heparin subcu 3 times daily potassium
[2024-03-10 01:30] LABS: Glucose,Whole Blood 199 mg/dL (70-110)
[2024-03-10] MEDS: DEXTROSE 5%-0.9% NACL 1,000 ML IV SCH (01:55)
[2024-03-10 04:21] LABS: Glucose,Whole Blood 148 mg/dL (70-110)
[2024-03-10 06:04] LABS: Glucose,Whole Blood 165 mg/dL (70-110)
[2024-03-10 07:51] LABS: Glucose,Whole Blood 159 mg/dL (70-110)
[2024-03-10 07:53] VITALS: BP 136/101; PULSE 75; RESP 18; TEMP 97.4
[2024-03-10] MEDS: INSULIN ASPART (NovoLOG) 100 UNIT/ML VIAL SQ SCH (07:56)
[2024-03-10] MEDS: lisinopriL 10 MG TAB PO SCH (07:57)
[2024-03-10] MEDS: HEPARIN SODIUM,PORCINE 5,000 UNIT/ML 1 ML VIAL SQ SCH (07:58)
[2024-03-10] MEDS ORDERED: lisinopriL 5 MG TAB PO SCH ×2 (09:00)
[2024-03-10 09:47] LABS: Glucose,Whole Blood 146 mg/dL (70-110)
[2024-03-10 10:19] LABS: BUN/Creat Ratio 16.12 Ratio (12.00-20.00); Blood Urea Nitrogen 12.9 mg/dL (9.0-27.0); Carbon Dioxide 23.6 mmol/L (21.6-31.8); Chloride 111 mmol/L (96-109); Glucose 156 mg/dL (70-110); Magnesium 2.1 mg/dL (1.5-2.4); Potassium 5.2 mmol/L (3.5-5.5); Sodium 143 mmol/L (135-145)
[2024-03-10] MEDS: TOPIRAMATE 25 MG TAB PO SCH (12:21)
[2024-03-10] MEDS: MAG HYDROX/AL HYDROX/SIMETH 30 ML CUP PO PRN (12:56)
--- NOTE | 2024-03-10 13:21 | P.DS ---
Providers Date of admission: 03/09/24 22:58 Expected date of discharge: 03/10/24 Attending physician: Chance Erazo MD Primary care physician: Marcello Colvin Hospital Course: Discharge Diagnosis: #Iatrogenic hypoglycemia #Uncontrolled type 2 diabetes #Hypertension controlled #Mild hypokalemia Hospital Course: 59-year-old female with history of type 2 diabetes for 15 years previously on basal insulin twice daily and recently on insulin pump presents to the ER with [place]. Initial lab work in the ER shows serum glucose 74, WBC 11.0, hemoglobin 12.8, sodium 139, potassium 3.1, chloride 109, bicarb 20, creatinine 0.76, calcium 9.6. Patient continued to have episodes of hypoglycemia despite getting D50 amps. Patient was admitted under observation for persistent hypoglycemia and was started on dextrose drip with frequent Accu-Cheks. Her sugar level stabilized and patient is asymptomatic. Patient is medically optimized and stable to be discharged home. Patient is advised to follow-up with her PCP and chart writer. Patient is advised to discontinue using insulin pump for now and resume her previous long- acting insulin regimen. Lantus Solostar pen 15 to 20 units twice daily till she sees her chart writer for reassessment and reevaluation on insulin pump regimen. Patient otherwise to continue with her regular home medications as directed. Patient is provided instruction on hypoglycemia in the setting of diabetes. Disposition at discharge: Patient stable and discharged home with self-care. Vital signs reviewed. Gen: in no apparent distress, resting comfortably in bed Eyes: PERRL, no scleral injection or icterus HENT: normocephalic, atraumatic, good hearing acuity, moist mucous membranes Neck: full range of motion Resp: CTAB, no rales, rhonchi, or wheezes CVS: normal S1 and S2, no murmurs, rubs or gallops, no edema GI: soft, NTTP, ND, no hepatosplenomegaly : no suprapubic tenderness, no CVAT, judd catheter is not present MSK: no clubbing, no cyanosis, no noted contractures of extremities Skin: no noted rashes, petechiae; temperature of skin is appropriate Neuro: moving all extremities without signs of weakness, CN II-XII intact Psych: cooperative, euthymic mood, insight and judgment intact A total of 36 minutes of time were spent preparing this complex discharge summary. Patient was discharged on 03/10/2024 at 1251. I have seen and evaluated the patient today. Discussed with the resident and agree with the residents finding and plan as documented in the resident's note. Changes highlighted in blue font. Patient Condition at Discharge: Good Plan - Discharge Summary New Discharge Prescriptions: New Insulin Glargine,Hum.rec.anlog [Lantus Solostar Pen] See Rx Instructions .ROUTE .COMPLEX 7 Days each Continue Evolocumab [Repatha Syringe] 140 mg SQ Q14D Glucagon [Gvoke Pfs 1-Pack Syringe] 1 mg SQ DIRECTED PRN PRN Reason: Hypoglycemia Topiramate [Topamax] 50 mg PO DAILY Albuterol Sulfate [Albuterol Sulfate Hfa] 2 puff PO RT-Q6H PRN PRN Reason: Shortness Of Breath lisinopriL [Zestril] 5 mg PO DAILY Fluticasone Nasal [place] [Flonase Nasal [place]] 1 spray EA NOSTRIL DAILY PRN PRN Reason: Allergy Symptoms Discontinued Insulin Aspart (For Pump) [NovoLOG (For Pump)] 0.01 unit SQ-PUMP CONTINUOUS Discharge Medication List Evolocumab [Repatha Syringe] 140 mg SQ Q14D 07/10/23 [History] Albuterol Sulfate [Albuterol Sulfate Hfa] 2 puff PO RT-Q6H PRN 12/02/23 [History] Topiramate [Topamax] 50 mg PO DAILY 12/02/23 [History] Fluticasone Nasal [place] [Flonase Nasal [place]] 1 spray EA NOSTRIL DAILY PRN 03/10/24 [History] Glucagon [Gvoke Pfs 1-Pack Syringe] 1 mg SQ DIRECTED PRN 03/10/24 [History] Insulin Glargine,Hum.rec.anlog [Lantus Solostar Pen] See Rx Instructions .ROUTE .COMPLEX 7 Days each 03/10/24 [Rx] lisinopriL [Zestril] 5 mg PO DAILY 03/10/24 [History] Follow up Appointment(s)/Referral(s): Marcello Colvin DO [Primary Care Provider] - 1-2 days Patient Instructions/Handouts: Hypoglycemia in a Person with Diabetes (ED) Activity/Diet/Wound Care/Special Instructions: Please see your PCP and endocrinology. Discharge Disposition: HOME SELF-CARE
[2024-03-11] MEDS ORDERED: lisinopriL 5 MG TAB PO SCH (09:00)
== END 2024-03-10 13:31 | disposition home or self-care (01) ==
LOC: EC 18:16 → 6NMEDSUR 22:58 → 1SOBS 03-10 10:06
PROVIDERS: ADMIT Internal Medicine; ATTEND Internal Medicine
DX: E11.649 Type 2 diabetes mellitus with hypoglycemia without coma (principal); E11.65 Type 2 diabetes mellitus with hyperglycemia; J30.89 Other allergic rhinitis; E87.6 Hypokalemia; E78.00 Pure hypercholesterolemia, unspecified; G47.30 Sleep apnea, unspecified; I10 Essential (primary) hypertension; F32.A Depression, unspecified; F41.9 Anxiety disorder, unspecified; Z79.4 Long term (current) use of insulin; Z79.899 Other long term (current) drug therapy; Z86.73 Personal history of transient ischemic attack (TIA), and cerebral infarction without residual deficits; Z91.040 Latex allergy status; Z88.1 Allergy status to other antibiotic agents; Z88.5 Allergy status to narcotic agent; Z88.8 Allergy status to other drugs, medicaments and biological substances; Z91.02 Food additives allergy status; Z91.018 Allergy to other foods; Z91.048 Other nonmedicinal substance allergy status; Z96.41 Presence of insulin pump (external) (internal)
CPT/HCPCS: 96361 ×2; 96372; 99285; 36415; 80048 ×2; 83735; 85025; 83036; G0378 ×3; J1644

== ENCOUNTER 2024-04-19 16:51 | Emergency (ER) | payer MEDICARE, OTHER ==
[2024-04-19 16:59] VITALS: RESP 18
[2024-04-19] MEDS: valACYclovir HCL 1,000 MG TABLET PO STA (18:10)
[2024-04-19 18:16] LABS: Appearance,Urine Clear (Clear); Bilirubin,Urine Negative (Negative); Blood,Urine Negative (Negative); Color,Urine Colorless; Glucose,Urine (UA) Negative (Negative); Ketones,Urine Negative (Negative); Leukocyte Esterase,Urine Moderate (Negative); Nitrite,Urine Negative (Negative); Protein,Urine Negative (Negative); Specific Gravity,Urine 1.006 (1.001-1.035); Urobilinogen,Urine <2.0 mg/dL (<2.0)
[2024-04-19 18:17] LABS: Mucus,Urine Rare /hpf; RBC,Urine 1 /hpf (0-5); Squamous Epithelial Cell,Urine 1 /hpf (0-4); WBC,Urine 3 /hpf (0-5)
--- NOTE | 2024-04-19 19:14 | ED ---
General Adult HPI - General Chief complaint: Skin/Abscess/Foreign Body Stated complaint: toungue swelling, rash Time Seen by Provider: 04/19/24 17:36 Source: patient Mode of arrival: ambulatory Limitations: no limitations - History of Present Illness Initial comments: 59-year-old female presents emergency department with a rash to her left chest and difficulty swallowing. Patient is concerned for shingles. States that she has had shingles multiple times. She noted today that she had a rash over the left side of her chest which is localized. Reports that she has had this rash previously when she was diagnosed with shingles. She does state that it is painful. She is also reporting to a globus sensation in her throat. She has been evaluated previously for this issue. She is following with [facility] gastroenterology who did an EGD. She also had a swallow study. She states that her next test is esophageal manometry at [facility] which is scheduled for April. Patient feels as if her symptoms are worsening today and she believes it is due to her overlying viral infection. She denies fevers. No difficulty breathing. Patient has been able to eat and drink. She denies any abdominal or chest pain. No nausea or vomiting. No other alleviating, precipitating or modifying factors - Related Data Home Medications Medication Instructions Recorded Confirmed Evolocumab [Repatha Syringe] 140 mg SQ Q14D 07/10/23 03/10/24 Albuterol Sulfate [Albuterol 2 puff PO RT-Q6H PRN 12/02/23 03/10/24 Sulfate Hfa] Topiramate [Topamax] 50 mg PO DAILY 12/02/23 03/10/24 Fluticasone Nasal [place] [Flonase 1 spray EA NOSTRIL DAILY PRN 03/10/24 03/10/24 Nasal [place]] Glucagon [Gvoke Pfs 1-Pack Syringe] 1 mg SQ DIRECTED PRN 03/10/24 03/10/24 lisinopriL [Zestril] 5 mg PO DAILY 03/10/24 03/10/24 Previous Rx's Medication Instructions Recorded Insulin Glargine,Hum.rec.anlog See Rx Instructions .ROUTE 03/10/24 [Lantus Solostar Pen] .COMPLEX 7 Days each valACYclovir HCL [Valtrex] 1,000 mg PO TID #21 tablet 04/19/24 Allergies Allergy/AdvReac Type Severity Reaction Status Date / Time banana Allergy Unknown Verified 04/19/24 16:59 celery Allergy Anaphylaxis Verified 04/19/24 16:59 latex Allergy Anaphylaxis Verified 04/19/24 16:59 lavender (Lavandula Allergy Unknown Verified 04/19/24 16:59 angustifolia) saccharin Allergy lip/tongue Verified 04/19/24 16:59 swelling tramadol Allergy feels Verified 04/19/24 16:59 bruised/stiff in face tree nut Allergy Anaphylaxis Verified 04/19/24 16:59 adhesive AdvReac "BANDAIDS Verified 04/19/24 16:59 TAKE OFF SKIN" aspartame AdvReac Vomiting Verified 04/19/24 16:59 carbamazepine [From Tegretol] AdvReac feels as Verified 04/19/24 16:59 if her body was beat cephalexin [From Keflex] AdvReac yeast Verified 04/19/24 16:59 infection chicken derived [Chicken] AdvReac positive Verified 04/19/24 16:59 allergy testing glipizide AdvReac depression Verified 04/19/24 16:59 lurasidone [From Latuda] AdvReac Hallucinati Verified 04/19/24 16:59 ons metformin AdvReac depression Verified 04/19/24 16:59 paliperidone [From Invega] AdvReac Tired, Verified 04/19/24 16:59 cramping in jaw pioglitazone [From Actos] AdvReac gained 10# Verified 04/19/24 16:59 water weight repaglinide AdvReac Unknown Verified 04/19/24 16:59 sitagliptin [From Januvia] AdvReac pulsating Verified 04/19/24 16:59 facial pain [id number] Reductase AdvReac elev liver Verified 04/19/24 16:59 Inhibitor enzymes dust mites Allergy Unknown Uncoded 04/19/24 16:59 pitaschio Allergy Anaphylaxis Uncoded 04/19/24 16:59 raw celery Allergy Anaphylaxis Uncoded 04/19/24 16:59 Review of Systems ROS Statement: Those systems with pertinent positive or pertinent negative responses have been documented in the HPI. ROS Other: All systems not noted in ROS Statement are negative. Past Medical History Past Medical History: Blood Disorder, Cancer, Diabetes Mellitus, Eye Disorder, GERD/Reflux, Hyperlipidemia, Hypertension, Musculoskeletal Disorder, Seizure Disorder, Skin Disorder, Sleep Apnea/CPAP/BIPAP, Syncope Additional Past Medical History / Comment(s): HAS A SUSPICIOUS SPOT ON OUTER RIGHT ANKLE, WENT TO CARE TAKER WHO SAID IT LOOKED SUPSICIOUS FOR CANCER, SHE WILL REPORT FINDINGS TO DR. CEDILLO (SHE DID NOT BIOPSY, WILL LET DR. CEDILLO DECIDE IF HE WILL DO SURGERY). Hx severe anemia, sm leaky valve, hx blood clot Rt ovary, skin cancer, spinal stenosis, fatty liver. Neck pain, NT bilat arms. No CPAP. neurological dermatitis, Last seizure 2005, varicose veins. difficulty swallowing food. History of Any Multi-Drug Resistant Organisms: None Reported Past Surgical History: Back Surgery, Hysterectomy, Orthopedic Surgery, Tubal Ligation Additional Past Surgical History / Comment(s): Lumbar discectomy 2012, lt foot removal of foriegn body, Laser varicose veins, Skin cancer exc scalp, laser surgery for glaucoma, tendon and ligament repair right foot Past Anesthesia/Blood Transfusion Reactions: No Reported Reaction Additional Past Anesthesia/Blood Transfusion Reaction / Comment(s): Family has awakened in surgery - son, father, slow to wake up Past Psychological History: Anxiety, Depression Smoking Status: Never smoker Past Alcohol Use History: None Reported Past Drug Use History: None Reported - Past Family History Father Family Medical History: Cancer, CVA/TIA, Diabetes Mellitus, Hypertension, Thyroid Disorder Additional Family Medical History / Comment(s): Lymphoma, neuropathy, chronic fatigue syndrome Mother Family Medical History: Cancer, CVA/TIA, Diabetes Mellitus Additional Family Medical History / Comment(s): Cervical cancer. Sister(s) Family Medical History: Cancer Additional Family Medical History / Comment(s): breast cancer General Exam Limitations: no limitations General appearance: alert, in no apparent distress Head exam: Present: atraumatic, normocephalic, normal inspection Eye exam: Present: normal appearance, PERRL, EOMI. Absent: scleral icterus, conjunctival injection, periorbital swelling ENT exam: Present: normal exam, mucous membranes moist Neck exam: Present: normal inspection. Absent: tenderness, meningismus, lymphadenopathy Respiratory exam: Present: normal lung sounds bilaterally. Absent: respiratory distress, wheezes, rales, rhonchi, stridor Cardiovascular Exam: Present: regular rate, normal rhythm, normal heart sounds. Absent: systolic murmur, diastolic murmur, rubs, gallop, clicks GI/Abdominal exam: Present: soft, normal bowel sounds. Absent: distended, tenderness, guarding, rebound, rigid Extremities exam: Present: normal inspection, full ROM, normal capillary refill. Absent: tenderness, pedal edema, joint swelling, calf tenderness Back exam: Present: normal inspection Neurological exam: Present: alert, oriented X3, CN II-XII intact Psychiatric exam: Present: normal affect, normal mood Skin exam: Present: warm, dry, intact, normal color, rash (Left chest there is a rash with round circular lesions. They are not vesicular in nature. They measure 5 mm in size and there are approximately 7 of them) Course Vital Signs 04/19/24 04/19/24 16:55 19:21 Temperature 97.4 F L 97.5 F L Pulse Rate 69 62 Respiratory 18 18 Rate Blood Pressure 152/97 139/72 O2 Sat by Pulse 100 96 Oximetry Medical Decision Making - Medical Decision Making Was pt. sent in by a medical professional or institution (, PA, FUR SORTER, urgent care, hospital, or long-term...) When possible be specific @ -No Did you speak to anyone other than the patient for history (EMS, parent, family, police, friend...)? What history was obtained from this source @ -No Did you review nursing and triage notes (agree or disagree)? Why? @ -I reviewed and agree with nursing and triage notes Were old charts reviewed (outside hosp., previous admission, EMS record, old EKG, old radiological studies, urgent care reports/EKG's, long-term records)? Report findings @ -No old charts were reviewed Differential Diagnosis (chest pain, altered mental status, abdominal pain women, abdominal pain men, vaginal bleeding, weakness, fever, dyspnea, syncope, headache, dizziness, GI bleed, back pain, seizure, CVA, palpatations, mental health, musculoskeletal)? @ -Shingles, globus sensation, reflux, esophageal stricture, allergic reaction EKG interpreted by me (3pts min.). @ -Not done X-rays interpreted by me (1pt min.). @ -None done CT interpreted by me (1pt min.). @ -None done U/S interpreted by me (1pt. min.). @ -None done What testing was considered but not performed or refused? (CT, X-rays, U/S, labs)? Why? @ -CT soft tissue neck however patient reports that she has already had advanced testing for her swallowing complaint What meds were considered but not given or refused? Why? @ -None Did you discuss the management of the patient with other professionals (professionals i.e. , PA, FUR SORTER, lab, RT, psych nurse, social security specialist, reinforcing steel machine operator, teacher, strategic intelligence officer, case assembler)? Give summary @ -No Was smoking cessation discussed for >3mins.? @ -No Was critical care preformed (if so, how long)? @ -No Were there social determinants of health that impacted care today? How? (Homelessness, low income, unemployed, alcoholism, drug addiction, transportation, low edu. Level, literacy, decrease access to med. care, intermediate, rehab)? @ -No Was there de-escalation of care discussed even if they declined (Discuss DNR or withdrawal of care, Hospice)? DNR status @ -No What co-morbidities impacted this encounter? (DM, HTN, Smoking, COPD, CAD, Cancer, CVA, ARF, Chemo, Hep., AIDS, mental health diagnosis, sleep apnea, morbid obesity)? @ -None Was patient admitted / discharged? Hospital course, mention meds given and route, prescriptions, significant lab abnormalities, going to OR and other pertinent info. @ -Upon arrival patient seen and evaluated in [place] [address]. Thorough history and physical exam was performed. I did offer a CT of the patient's neck however she refused that she states she has had advanced workup for her current complaint. Patient reports that she is strictly here because she wants to obtain an antivir al for what she considers that shingles on her left anterior chest. Rash is localized to 1 area however is not vesicular in nature. Patient reports that rash just started. I did provide the patient with a dose of valacyclovir to see if this assists with the rash. I offered further testing for the dysphagia however patient refused as she does have planned testing. At this time patient will be discharged home and told to attempt the valacyclovir for her rash. Follow-up with her primary care doctor in 2 to 4 days. Maintain her appointment that she has for her esophageal manometry and return for any new or worsening symptoms. Patient did not demonstrate any signs of respiratory distress or upper airway swelling. Patient discharged in stable condition Undiagnosed new problem with uncertain prognosis? @ -No Drug Therapy requiring intensive monitoring for toxicity (Heparin, Nitro, Insulin, Cardizem)? @ -No Were any procedures done? @ -No Diagnosis/symptom? @ -Chronic dysphagia, rash left chestpossible shingles Acute, or Chronic, or Acute on Chronic? @ -Acute on chronic, acute Uncomplicated (without systemic symptoms) or Complicated (systemic symptoms)? @ -Complicated Side effects of treatment? @ -No Exacerbation, Progression, or Severe Exacerbation? @ -No Poses a threat to life or bodily function? How? (Chest pain, [place], NH, pneumonia, PE, COPD, DKA, ARF, appy, cholecystitis, CVA, Diverticulitis, Homicidal, Suicidal, threat to staff... and all critical care pts) @ -No - Lab Data Lab Results 04/19/24 04/19/24 Range/Units 18:07 18:07 Urine Color Colorless Urine Appearance Clear (Clear) Urine pH 5.0 (5.0-8.0) Ur Specific [place] 1.006 (1.001-1.035) Urine Protein Negative (Negative) Urine Glucose (UA) Negative (Negative) Urine Ketones Negative (Negative) Urine Blood Negative (Negative) Urine Nitrite Negative (Negative) Urine Bilirubin Negative (Negative) Urine Urobilinogen <2.0 (<2.0) mg/dL Ur Leukocyte Esterase Moderate H (Negative) Urine RBC 1 (0-5) /hpf Urine WBC 3 (0-5) /hpf Ur Squamous Epith Cells 1 (0-4) /hpf Urine Mucus Rare H (None) /hpf Influenza Type A (PCR) Not Detected (Not Detectd) Influenza Type B (PCR) Not Detected (Not Detectd) RSV (PCR) Not Detected (Not Detectd) SARS-CoV-2 (PCR) Not Detected (Not Detectd) Disposition Clinical Impression: Rash, Throat pain Disposition: HOME SELF-CARE Condition: Stable Instructions (If sedation given, give patient instructions): Dysphagia (ED) Additional Instructions: Please follow-up with Leoncio Bruner for your scheduled testing. Return for any new or worsening symptoms Prescriptions: valACYclovir HCL [Valtrex] 1,000 mg PO TID #21 tablet Is patient prescribed a controlled substance at d/c from ED?: No Referrals: Marcello Colvin, [Primary Care Provider] - 1-2 days Time of Disposition: 19:09
[2024-04-19 19:21] VITALS: BP 139/72; PULSE 62; TEMP 97.5
== END 2024-04-19 19:21 | disposition home or self-care (01) ==
LOC: EC 16:51
DX: R21 Rash and other nonspecific skin eruption (principal); R13.10 Dysphagia, unspecified; Z91.018 Allergy to other foods; Z91.048 Other nonmedicinal substance allergy status; Z91.040 Latex allergy status; Z88.6 Allergy status to analgesic agent; Z88.8 Allergy status to other drugs, medicaments and biological substances; Z88.1 Allergy status to other antibiotic agents
CPT/HCPCS: 81001; 87636; 99283

== ENCOUNTER → 2024-05-14 | Outpatient (CLI) | payer MEDICARE ==
--- NOTE | 2024-05-15 12:06 | MR ---
MRI CERVICAL SPINE: CLINICAL HISTORY: neck pain that radiates down left arm, left hand/fingers numb. Right shoulder numbn ess/pain neck pain that radiates down left arm, left hand/fingers numb. Right shoulder numbness/pain TECHNIQUE: Multiplanar, multisequence imaging of the cervical spine is performed without IV contrast. COMPARISON: CT cervical spine October 03, 2019 FINDINGS: Sagittal images of the cervical spine show the craniocervical junction to appear within nor mal limits. The cervical and upper thoracic spinal cord is normal in caliber and signal. There is le voconvex scoliosis centered in the upper thoracic findings redemonstrated. The vertebral body height s are normal. There is moderate to severe disc space narrowing and spurring at C5-C6 redemonstrated. There is mild disc space narrowing with moderate anterior spurring at C6-C7 level redemonstrated. Het erogeneous bony uptake to endplate change and anterior inferior C6 level. Axial images show C2-C3 and C3-C4 level to appear within normal limits. Axial images at C4-C5 level shows central disc protrusion effacing the anterior thecal sac, bilateral neural foramina are patent. Axial images at C5-C6 levels with posterior spur disc complex effacing the anterior thecal sac with u ncovertebral facet spurring causing [id number] right and moderate to severe left-sided neural f oraminal narrowing. Axial images at C6-C7 level showed broad based posterior disc protrusion facing anterior thecal sac a nd causing moderate left greater than right bilateral neural foraminal narrowing. Axial images at C7-T1 level appear within normal limits. IMPRESSION: Multilevel degenerative change at C5-C6 and C6-C7 level redemonstrated as detailed above. [facility] [place], , 05/15/2024 12:04 PM
== END | disposition home or self-care (01) ==
LOC: RADMRIMAIN 14:15
PROVIDERS: ATTEND Orthopaedic Surgery Orthopaedic Surgery of the Spine
DX: M47.812 Spondylosis without myelopathy or radiculopathy, cervical region (principal)
CPT/HCPCS: 72141

== ENCOUNTER → 2024-08-11 | Outpatient (CLI) | payer MEDICARE, OTHER ==
[2024-08-11 19:19] LABS: Blood Urea Nitrogen 16.3 mg/dL (9.0-27.0)
== END | disposition home or self-care (01) ==
LOC: LABWHC1 15:16
PROVIDERS: ATTEND Internal Medicine
DX: I10 Essential (primary) hypertension (principal)
CPT/HCPCS: 36415; 82565; 84520

== ENCOUNTER → 2024-10-16 | Outpatient (CLI) | payer MEDICARE, OTHER ==
[2024-10-16 15:08] LABS: HCT 42.1 % (37.2-46.3); HGB 13.5 g/dL (12.0-15.0); MCH 28.4 pg (27.0-32.0); MCHC 32.1 g/dL (32.0-37.0); MCV 88.6 FL (80.0-97.0); Mean Platelet Volume 10.5 FL (9.5-12.2); NRBC Per 100 WBC 0 X 10*3/uL (0.00-0.01); Platelet Count 309 X 10*3/uL (140-440); RBC 4.75 X 10*6/uL (4.10-5.20); RDW 13.4 % (11.5-14.5); WBC 4.67 X 10*3/uL (4.50-10.00)
[2024-10-16 15:09] LABS: Basophils # (A) 0.06 X 10*3/uL (0.00-0.10); Basophils % (A) 1.3 %; Eosinophils # (A) 0.12 X 10*3/uL (0.04-0.35); Eosinophils % (A) 2.6 %; Lymphocytes # (A) 2.14 X 10*3/uL (0.90-5.00); Lymphocytes % (A) 45.8 %; Monocytes # (A) 0.34 X 10*3/uL (0.20-1.00); Monocytes % (A) 7.3 %; Neutrophils % (A) 42.8 %
[2024-10-16 15:57] LABS: Erythrocyte Sedimentation Rate 23 mm/Hr (0-30)
[2024-10-16 16:25] LABS: ALT 22 U/L (8-44); AST 27 U/L (13-35); Albumin 4.1 g/dL (3.8-4.9); Albumin/Globulin Ratio 1.64 Ratio (1.60-3.17); Alkaline Phosphatase 98 U/L (41-126); BUN/Creat Ratio 20.62 Ratio (12.00-20.00); Blood Urea Nitrogen 16.5 mg/dL (9.0-27.0); C Reactive Protein <0.30 mg/dL (0.00-0.80); Carbon Dioxide 22.6 mmol/L (21.6-31.8); Chloride 108 mmol/L (96-109); Chol/HDL Ratio 2.16 Ratio; Globulin 2.5 g/dL (1.6-3.3); Glucose 91 mg/dL (70-110); Potassium 4.2 mmol/L (3.5-5.5); Sodium 143 mmol/L (135-145); Total Bilirubin 0.5 mg/dL (0.3-1.2); Total Protein 6.6 g/dL (6.2-8.2); VLDL Calculation 15.64 mg/dL (5.00-40.00)
[2024-10-16 16:58] LABS: Protein, Total 6.5 g/dL (6.2-8.2)
[2024-10-17 13:02] LABS: C-ANCA <1:20 Titer (<1:20)
== END | disposition home or self-care (01) ==
LOC: LABWHC1 10:03
PROVIDERS: ATTEND Internal Medicine Endocrinology, Diabetes & Metabolism
DX: G62.9 Polyneuropathy, unspecified (principal); E11.65 Type 2 diabetes mellitus with hyperglycemia
CPT/HCPCS: 36415; 80053; 80061; 82607; 82746; 83036; 83516; 84165; 84207; 84443; 85025; 85652; 86038; 86140; 86255

== ENCOUNTER → 2024-10-29 | Outpatient (CLI) | payer MEDICARE, OTHER ==
--- NOTE | 2024-10-29 16:00 | US ---
EXAMINATION TYPE: US arterial LE single level DATE OF EXAM: 10/29/2024 3:28 PM COMPARISONS: None. CLINICAL INDICATION: Female, 59 years old with history of I73.9 PERIPH ARTERY DISEASE; home test with O2 sensors showed possible PAD. Hx surgery on right lower leg (ATFL, peroneal muscle tears) Neuropat hy bilaterally. TECHNIQUE: Systolic pressures were taken of the upper and lower extremity arteries with ankle-brachia l indices and toe brachial indices calculated bilaterally. History of: Smoker: No Hypertension: Takes medication Diabetic: Yes Hyperlipidemia: No TIA/CVA: No Previous Vascular Surgery: No CAD: No TX: No Vascular Ulcers: No Claudication: No Gangrene: No FINDINGS: Doppler Waveforms: Right: Multiphasic Left: Multiphasic Brachial Artery systolic pressure: Right: omitted due to CGM in place Left: 117 Posterior Tibial artery systolic pressure: Right: 160 Left: 189 Dorsalis Pedis artery systolic pressure: Right: 164 Left: 160 Toe artery systolic pressure: Right: 0.84 Left: 1.4 Ankle-Brachial Indices: Right: 1.4 Left: 1.6 Toe Brachial Indices: Right: 0.84 Left: 1.38 (Normal > 0.6; Mild 0.35 - 0.59, Moderate 0.12 - 0.34, Severe <0.12) IMPRESSION: PAUL: Right: Normal 0.9 - 1.4, Recommendation: None Left: Vessel hardening > 1.4 with normal waveforms, Recommendation: Consider referral to vascular spe cialist [facility] [place], , 10/29/2024 3:58 PM
== END | disposition home or self-care (01) ==
LOC: RADUSWWP 14:52
PROVIDERS: ATTEND Internal Medicine
DX: I73.9 Peripheral vascular disease, unspecified (principal)
CPT/HCPCS: 93922